=== PATIENT | male | born 1945 | race Hispanic/Latino ===

== ENCOUNTER 2018-01-04 16:33 | Inpatient (IN) | payer MEDICARE, OTHER ==
[2018-01-04 16:35] VITALS: BMI 31.5
[2018-01-04] MEDS ORDERED: Sodium Chloride 0.9% 1,000 ML IV STA ×3 (17:36→19:17)
--- NOTE | 2018-01-04 18:19 | ED PDOC ---
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 Patient denies abdominal pain, back pain, penile pain, penile discharge, testicular pain , and any other symptoms. History is limited due to patient not answering questions. PMD: [facility] Time/Duration: < week (2 days) Symptom Onset: Gradual Symptom Course: Unchanged Context: Home Past Medical History - Provider Review Nursing Documentation Reviewed: Yes - Cardiac Hx Cardiac Disorders: Yes Hx Hypertension: Yes - Pulmonary Hx Respiratory Disorders: No - Neurological Hx Neurological Disorder: Yes HX Cerebrovascular Accident: Yes (left side weakness) - Musculoskeletal/Rheumatological Other/Comment: wheelchair bound - Psychiatric Hx Substance Use: No - Surgical History Hx Coronary Artery Bypass Graft: Yes - Anesthesia Hx Anesthesia: Yes Hx Anesthesia Reactions: No Hx Malignant Hyperthermia: No Family/Social History - Physician Review Nursing Documentation Reviewed: Yes Family/Social History: Unknown Family HX Smoking Status: Former Smoker Hx Alcohol Use: No Hx Substance Use: No Allergies/Home Meds Allergies/Adverse Reactions: Allergies Penicillins Allergy (Verified 01/04/18 16:35) ANAPHYLAXIS Home Medications: Home Meds Medication Instructions Recorded Confirmed Chlorthalidone [Hygroton] 25 mg PO DAILY 01/04/18 01/04/18 Losartan [Cozaar] 25 mg PO DAILY 01/04/18 01/04/18 Propranolol [Inderal] 20 mg PO Q8 01/04/18 01/04/18 Review of Systems - Physician Review All systems were reviewed & negative as marked: Yes - Review of Systems Constitutional: Other (decreased PO intake) Gastrointestinal: absent: Abdominal Pain Genitourinary Male: Urinary Output Changes. absent: Frequency Musculoskeletal: absent: Back Pain Neurological: Dizziness, Focal Weakness Physical Exam Vital Signs Reviewed: Yes Vital Signs Temp Pulse Resp BP Pulse Ox 01/04/18 19:21 89 18 135/70 100 02/07/18 17:41 98.5 F 89 18 138/69 98 Temperature: Afebrile Blood Pressure: Normal Pulse: Regular Respiratory Rate: Normal Appearance: Positive for: Well-Appearing, Non-Toxic, Comfortable Pain Distress: None Mental Status: Positive for: Alert and Oriented X 3 - Systems Exam Head: Present: Atraumatic, Normocephalic Pupils: Present: PERRL Extroacular Muscles: Present: EOMI Conjunctiva: Present: Normal Mouth: Present: Moist Mucous Membranes Neck: Present: Normal Range of Motion Respiratory/Chest: Present: Clear to Auscultation, Good Air Exchange. No: Respiratory Distress, Accessory Muscle Use Cardiovascular: Present: Regular Rate and Rhythm, Normal S1, S2. No: Murmurs Abdomen: Present: Normal Bowel Sounds. No: Tenderness, Distention, Peritoneal Signs Genitourinary Male: Present: Normal External Genitalia. No: Penile Discharge, Testicle Tenderness, Penile Swelling, Erythema, Testicle Swelling Back: Present: Normal Inspection Upper Extremity: Present: Normal Inspection. No: Cyanosis, Edema Lower Extremity: Present: Normal Inspection. No: Edema Neurological: Present: GCS=15, CN II-XII Intact, Speech Normal, Other (left sided weakness). No: Normal Sensory Function (left sided sensation loss) Skin: Present: Warm, Dry, Normal Color. No: Rashes Psychiatric: Present: Alert, Oriented x 3, Normal Insight, Normal Concentration Medical Decision Making ED Course and Treatment: 01/04/18 18:25 Impression: 72 year old male presents to the Emergency department due to decreased PO intake , dizziness, lightheadedness, weakness, and no urine output for 2 days. Differential Diagnosis included but are not limited to: urine retention secondary to BPH vs. renal disease Plan: -- Urinalysis -- Urine culture -- Labs -- Andrade catheter was placed with a small amount of urine output. -- Sodium Chloride IV fluids -- Reassess and disposition Prior Visits: Notes and results from previous visits were reviewed. Patient was last seen in the emergency department on Progress Notes: 01/04/18 19:37 Case was discussed with Dr. Weir who requested Dr. Headley for Renal. He will evaluate patient. Patient will continue to receive IVF. He will be admitted to Medical floor. - Lab Interpretations Lab Results: 01/04/18 18:00 01/04/18 18:00 Lab Results 01/04/18 18:00: Sodium 131 L, Potassium 3.8, Chloride 91 L, Carbon Dioxide 24, Anion Gap 19, BUN 70 H, Creatinine 6.3 H, Est GFR ( Amer) 11, Est GFR ( Non-Af Amer) 9, Random Glucose 470 H*, Calcium 8.8, Total Bilirubin 1.8 H, AST 36, ALT 52, Alkaline Phosphatase 44, Total Protein 7.1, Albumin 4.0, Globulin 3.1, Albumin/Globulin Ratio 1.3, Lipase 75 01/04/18 18:00: WBC 11.5 H, RBC 4.40, Hgb 13.9 L, Hct 37.9 L, MCV 86.1, MCH 31.6 , MCHC 36.7, RDW 13.1, Plt Count 171, MPV 12.1 H, Gran % 78.8 H, Lymph % (Auto) 11.6 L, [place] % (Auto) 9.1 H, Eos % (Auto) 0.2 L, Baso % (Auto) 0.3, Gran # 9.07 H, Lymph # (Auto) 1.3, [place] # (Auto) 1.0 H, Eos # (Auto) 0.0, Baso # (Auto) 0.03 - RAD Interpretation Radiology Orders: 01/04/18 19:34 CXR [CHEST PORTABLE] [RAD] Stat - Medication Orders Current Medication Orders: Sodium Chloride (Sodium Chloride 0.9%) 1,000 mls @ 999 mls/hr IV .Q1H1M STA Stop: 01/04/18 19:59 Last Admin: 01/04/18 19:24 Dose: 999 mls/hr eMAR Start Stop Document 01/04/18 19:24 SF (Rec: 01/04/18 19:24 SF [facility] [id number]) Intravenous Solution Start Date 01/04/18 Start Time 19:24 End Date 01/04/18 End time 20:25 Total Infusion Time 61 Sodium Chloride (Sodium Chloride 0.9%) 1,000 mls @ 999 mls/hr IV .Q1H1M STA Stop: 01/04/18 20:17 Last Admin: 01/04/18 19:24 Dose: 999 mls/hr eMAR Start Stop Document 01/04/18 19:24 SF (Rec: 01/04/18 19:24 SF [facility] [id number]) Intravenous Solution Start Date 01/04/18 Start Time 19:24 End Date 01/04/18 End time 20:25 Total Infusion Time 61 Discontinued Medications Sodium Chloride (Sodium Chloride 0.9%) 1,000 mls @ 1,000 mls/hr IV .Q1H STA Stop: 01/04/18 18:35 Last Admin: 01/04/18 17:45 Dose: 1,000 mls/hr eMAR Start Stop Document 01/04/18 17:45 SF (Rec: 01/04/18 17:46 SF [facility] [id number]) Intravenous Solution Start Date 01/04/18 Start Time 17:46 End Date 01/04/18 End time 18:46 Total Infusion Time 60 - Scribe Statement The provider has reviewed the documentation as recorded by the Scribe Aroldo Echavarria Provider Scribe Attestation: All medical record entries made by the Scribe were at my direction and personally dictated by me. I have reviewed the chart and agree that the record accurately reflects my personal performance of the history, physical exam, medical decision making, and the department course for this patient. I have also personally directed, reviewed, and agree with the discharge instructions and disposition. Disposition/Present on Arrival - Present on Arrival Any Indicators Present on Arrival: No History of DVT/PE: No History of Uncontrolled Diabetes: No Urinary Catheter: No History of Decub. Ulcer: No History Surgical Site Infection Following: None - Disposition Have Diagnosis and Disposition been Completed?: Yes Diagnosis: Acute renal failure, Dehydration, Hyperglycemia Disposition Time: 19:39 Patient Plan: Admission Condition: FAIR Referrals: Porter Funes, [Primary Care Provider] - Follow up with primary Forms: [employer] (Wallisian)
[2018-01-04 18:33] LABS: BASO # 0.03 K/mm3 (0.0-2.0); BASO % 0.3 % (0.0-3.0); EOS % 0.2 % (1.5-5.0); GRAN # 9.07 (1.4-6.5); GRAN % 78.8 % (50.0-68.0); HEMOGLOBIN 13.9 g/dL (14.0-18.0); LYMPH # 1.3 (1.2-3.4); LYMPH % 11.6 % (22.0-35.0); MEAN CELL VOLUME 86.1 fl (80.0-105.0); MEAN CORPUSCULAR HEMOGLOBIN 31.6 pg (25.0-35.0); MEAN CORPUSCULAR HGB CONC 36.7 g/dl (31.0-37.0); MEAN PLATELET VOLUME 12.1 fl (7.0-11.0); MONO % 9.1 % (1.0-6.0); RBC 4.4 10^6/uL (3.5-6.1); RED CELL DISTRIBUTION WIDTH 13.1 % (11.5-14.5); WHITE BLOOD COUNT 11.5 10^3/ul (4.5-11.0)
[2018-01-04 18:52] LABS: ALB/GLOB RATIO 1.3 (1.1-1.8); CALCIUM 8.8 mg/dL (8.4-10.5)
[2018-01-04] MEDS ORDERED: Insulin Regular 1 UNITS/0.01 ML ML SC STA (19:39)
--- NOTE | 2018-01-04 21:09 | ED PDOC ---
Physical Exam Vital Signs Reviewed: Yes Vital Signs Temp Pulse Resp BP Pulse Ox 01/04/18 19:21 89 18 135/70 100 01/04/18 17:41 98.5 F 89 18 138/69 98 Temperature: Afebrile Blood Pressure: Normal Pulse: Regular Respiratory Rate: Normal Appearance: Positive for: Well-Appearing, Non-Toxic, Comfortable Pain Distress: None Mental Status: Positive for: Alert and Oriented X 3 Medical Decision Making ED Course and Treatment: 01/04/18 21:07 Patient was seen by Dr. Khan, and admitted to the hospital. Patient is a 72 year old male with acute kidney injury, dehydration and diarrhea. Patient was not urinating. Initially had few hundred cc first julio, second julio had nothing. Ordered US abdomen, pending US results. - Lab Interpretations Lab Results: 01/04/18 18:00 01/04/18 18:00 Lab Results 01/04/18 18:00: Sodium 131 L, Potassium 3.8, Chloride 91 L, Carbon Dioxide 24, Anion Gap 19, BUN 70 H, Creatinine 6.3 H, Est GFR ( Amer) 11, Est GFR ( Non-Af Amer) 9, Random Glucose 470 H*, Calcium 8.8, Total Bilirubin 1.8 H, AST 36, ALT 52, Alkaline Phosphatase 44, Total Protein 7.1, Albumin 4.0, Globulin 3.1, Albumin/Globulin Ratio 1.3, Lipase 75 01/04/18 18:00: WBC 11.5 H, RBC 4.40, Hgb 13.9 L, Hct 37.9 L, MCV 86.1, MCH 31.6 , MCHC 36.7, RDW 13.1, Plt Count 171, MPV 12.1 H, Gran % 78.8 H, Lymph % (Auto) 11.6 L, [place] % (Auto) 9.1 H, Eos % (Auto) 0.2 L, Baso % (Auto) 0.3, Gran # 9.07 H, Lymph # (Auto) 1.3, [place] # (Auto) 1.0 H, Eos # (Auto) 0.0, Baso # (Auto) 0.03 I have reviewed the lab results: Yes - RAD Interpretation Radiology Orders: 01/04/18 20:20 CXR [CHEST PORTABLE] [RAD] Stat - Medication Orders Current Medication Orders: Discontinued Medications Sodium Chloride (Sodium Chloride 0.9%) 1,000 mls @ 1,000 mls/hr IV .Q1H STA Stop: 01/04/18 18:35 Last Admin: 01/04/18 17:45 Dose: 1,000 mls/hr eMAR Start Stop Document 01/04/18 17:45 SF (Rec: 01/04/18 17:[address] [facility] [id number] Intravenous Solution Start Date 01/04/18 Start Time 17:46 End Date 01/04/18 End time 18:46 Total Infusion Time 60 Sodium Chloride (Sodium Chloride 0.9%) 1,000 mls @ 999 mls/hr IV .Q1H1M STA Stop: 01/04/18 19:59 Last Admin: 01/04/18 19:24 Dose: 999 mls/hr eMAR Start Stop Document 01/04/18 19:24 SF (Rec: 01/04/18 19:[address] [id number] Intravenous Solution Start Date 01/04/18 Start Time 19:24 End Date 01/04/18 End time 20:25 Total Infusion Time 61 Sodium Chloride (Sodium Chloride 0.9%) 1,000 mls @ 999 mls/hr IV .Q1H1M STA Stop: 01/04/18 20:17 Last Admin: 01/04/18 19:24 Dose: 999 mls/hr eMAR Start Stop Document 01/04/18 19:24 SF (Rec: 01/04/18 19:[address] [facility] [id number]) Intravenous Solution Start Date 01/04/18 Start Time 19:24 End Date 01/04/18 End time 20:25 Total Infusion Time 61 Insulin Human Regular (Humulin R) 5 units SC STAT STA Stop: 01/04/18 19:40 - PA / REPAIR OPERATOR / Resident Statement MD/DO has reviewed & agrees with the documentation as recorded. - Scribe Statement The provider has reviewed the documentation as recorded by the Dian Connolly Provider Scribe Attestation: All medical record entries made by the Scribe were at my direction and personally dictated by me. I have reviewed the chart and agree that the record accurately reflects my personal performance of the history, physical exam, medical decision making, and the department course for this patient. I have also personally directed, reviewed, and agree with the discharge instructions and disposition. Disposition/Present on Arrival - Present on Arrival Any Indicators Present on Arrival: No History of DVT/PE: No History of Uncontrolled Diabetes: No Urinary Catheter: No History of Decub. Ulcer: No History Surgical Site Infection Following: None - Disposition Have Diagnosis and Disposition been Completed?: Yes Diagnosis: Acute renal failure, Dehydration, Hyperglycemia Disposition: HOSPITALIZED Disposition Time: 21:00 Patient Plan: Admission Patient Problems: Current Active Problems Problem Status Onset Acute renal failure Acute Dehydration Acute Hyperglycemia Acute Condition: FAIR
--- NOTE | 2018-01-04 22:26 | US ---
EXAM: US Abdomen Complete EXAM DATE/TIME: 01/04/2018 8:55 PM CLINICAL HISTORY: The patient age is 72 years old and is male; Abnormal findings; Abnormal lab test; Elevated amylase; Additional info: Attn: Kidneys, ureters and bladder Facility exam id and description: Us abd abdomen complete TECHNIQUE: Real-time ultrasound of the abdomen (complete) with image documentation. COMPARISON: No relevant prior studies available. FINDINGS: Liver: The liver is increased in echogenicity, most commonly due to fatty infiltration, but other chronic liver diseases may have a similar appearance. The liver measures 15.0 x 4.9 cm. Gallbladder: A shadowing gallstone is visualized. Iso- to hypoechoic sludge is also visualized within the gallbladder. There is borderline gallbladder wall thickening. Common bile duct: The common bile duct measures 2-3 mm in diameter, which is within normal limits. Pancreas: The pancreas is not visualized. Kidneys: The right kidney measures 11.8 x 5.5 x 6.5 cm. There is no hydronephrosis of the right kidney. There is a focus of hyper echogenicity of the lower pole of the left kidney measuring 0.9 x 0.3 x 1.1 cm, suggestive of a nonobstructing calculus. A few additional hyperechoic foci are visualized within the right kidney. The left kidney measures 9.4 x 4.4 x 4.8 cm. There is a hyperechoic focus of the lower pole measuring 0.7 x 0.4 x 0.6 cm, consistent with a nonobstructing calculus. There is no hydronephrosis of the left kidney. Spleen: The spleen measures 10.1 x 6.6 cm and is normal in echotexture. Aorta: Not imaged. Inferior vena cava: Not imaged. IMPRESSION: 1. There is bilateral nephrolithiasis, without hydronephrosis. 2. The liver is increased in echogenicity, most commonly due to fatty infiltration, but other chronic liver diseases may have a similar appearance. 3. A gallstone is visualized. Sludge is also visualized within the gallbladder. There is borderline gallbladder wall thickening. Clinical correlation is recommended. 4. Additional findings described above.
--- NOTE | 2018-01-04 22:29 | US ---
EXAM: US Pelvis Complete EXAM DATE/TIME: 01/04/2018 8:59 PM CLINICAL HISTORY: The patient age is 72 years old and is male; Abnormal findings; Abnormal lab test; Abnormal kidney function test; Additional info: No urine output Facility exam id and description: Us bladder bladder only/residual urine TECHNIQUE: Real-time pelvic ultrasound (complete) with image documentation. COMPARISON: No relevant prior studies available. FINDINGS: Limitations: This is a limited study. Prostate: Not imaged. Seminal vessicles: Not identified due to lack of a sufficient acoustic window. Bladder: A Andrade catheter is visualized within the bladder. Evaluation of the bladder is significantly limited due to a decompressed bladder. IMPRESSION: 1. A Andrade catheter is visualized within the bladder. Evaluation of the bladder is significantly limited. 2. If further evaluation is clinically indicated, a CT urogram is recommended.
[2018-01-05] MEDS: Albuterol-Ipratrop 3 mg / 0.5 (3 ml) UD IH SCH ×4 (01:21→20:02)
[2018-01-05 08:05] LABS: HEMOGLOBIN 12.4 g/dL (14.0-18.0); MEAN CELL VOLUME 85.5 fl (80.0-105.0); MEAN CORPUSCULAR HEMOGLOBIN 30.4 pg (25.0-35.0); MEAN CORPUSCULAR HGB CONC 35.5 g/dl (31.0-37.0); MEAN PLATELET VOLUME 11.9 fl (7.0-11.0); RBC 4.08 10^6/uL (3.5-6.1); RED CELL DISTRIBUTION WIDTH 13.1 % (11.5-14.5); WHITE BLOOD COUNT 11.9 10^3/ul (4.5-11.0)
[2018-01-05 08:13] LABS: IRON 22 ug/dL (45-180)
[2018-01-05 08:15] LABS: CALCIUM 7.7 mg/dL (8.4-10.5)
[2018-01-05 08:23] LABS: % IRON SATURATION 18 % (20-55); TOTAL IRON BINDING CAPACITY 127 ug/dL (261-462)
[2018-01-05] MEDS ORDERED: Sodium Chloride 0.9% 1,000 ML IV SCH ×2 (08:30→22:30)
[2018-01-05] MEDS: Insulin Reg-LOW-Coverage SC SCH ×4 (09:05→22:07)
--- NOTE | 2018-01-05 09:45 | HP ---
CHIEF COMPLAINT: Cannot urinate, no appetite. HISTORY OF PRESENT ILLNESS: Mr. Humberto London is a 72-year-old male with a history of CVA, residual amnesia and left-sided weakness, hypertension, short-term memory loss, came to the Emergency Department due to decreased p.o. intake, dizziness, lightheadedness, and weakness. Actually, patient had diarrhea; with that, he got dehydrated, and was not able to pee. No urinary outcome for 2 days as per patient's brother, Rashard, who was standing on the bedside. Patient denies abdominal pain, back pain. No discharge. No testicular pain. No fever. No chills. I saw the patient in the emergency room. We did bladder ultrasound and abdominal ultrasound. Admitted the patient. PAST MEDICAL HISTORY: Hypertension, left-sided weakness, cerebrovascular accident, wheelchair bound, coronary artery bypass graft. FAMILY HISTORY: Father and mother, noncontributory. HABITS: Former smoker. No ethanol. No substance abuse. ALLERGIES: PATIENT IS ALLERGIC TO PANTENE . HOME MEDICATIONS: Chlorthalidone, Cozaar, propranolol. REVIEW OF SYSTEMS: Patient was seen and examined on the bedside. Brother, Rashard is on the bedside. He gave me patient's signs and symptoms of review of systems, had decreased appetite, diarrhea, dehydrated, change of urinary output. No back pain. Feeling dizziness and weak. PHYSICAL EXAMINATION: VITAL SIGNS: Temperature 98.5, pulse 89, respiratory rate 18, blood pressure 130/69, pulse oximetry 98. HEENT: Head normocephalic, atraumatic. Eyes PERRLA. Extraocular muscles are intact. Conjunctivae are clear. Nose is patent. NECK: Supple. No carotid bruit, JVD, or thyromegaly. CHEST: Bilaterally symmetrical. HEART: S1 and S2 positive. LUNGS: Clear to auscultation. ABDOMEN: Soft. Bowel sounds present. No organomegaly. EXTREMITIES: No edema. No cyanosis. NEUROLOGIC: Patient is awake and alert but is confused, oriented x3. LABORATORY DATA: White blood cell is 11.5, hemoglobin 13.9, hematocrit 37.9, platelet 171. Sodium 131, potassium 3.8, BUN 70, creatinine 6.3, glucose 470. ASSESSMENT AND PLAN: Mr. Humberto London is a 72-year-old male with leukocytosis, anemia, hyponatremia, renal insufficiency, hyperglycemia, acute renal failure, dehydration, went for bladder and abdominal ultrasound. According to bladder ultrasound, patient's Andrade catheter is visible within the bladder, evaluation of the bladder is significantly limited. , CT urogram with bilateral nephrolithiasis without hydronephrosis, there is increase in echogenicity, most commonly due to fatty infiltration, but other chronic liver disease may have a similar appearance, a gallstone is visualized, sludge is also visualized within the bladder. There is borderline gallbladder wall thickening. Clinically correlation recommended. Patient was seen in the emergency room by also, sujatha, started on intravenous fluid. Patient has a history of stroke, residual amnesia and left-sided weakness, hypertension, short-term memory problem. Lots of time discussion done with the patient's brother, Rashard. All questions answered. Gastrointestinal and deep venous thrombosis prophylaxis. Repeat labs. We will follow. Marina Weir MD MTDD
[2018-01-05 12:51] LABS: URINE BILIRUBIN NEGATIVE (NEGATIVE); URINE BLOOD LARGE (NEGATIVE); URINE GLUCOSE (UA) 250 mg/dL (NEGATIVE); URINE LEUKOCYTE ESTERASE MODERATE Leu/uL (NEGATIVE); URINE NITRATE NEGATIVE (NEGATIVE); URINE PROTEIN >=300 mg/dL (<30 mg/dL); URINE UROBILINOGEN 0.2 E.U./dL (<1 E.U./dL)
[2018-01-05 12:52] LABS: URINE APPEARANCE CLOUDY (CLEAR); URINE COLOR LIGHT BROWN (YELLOW)
[2018-01-05 13:23] LABS: FOLATE 11.2 ng/mL
[2018-01-05 13:27] LABS: URINE BACTERIA MANY (NEG); URINE RBC TNTC /hpf (0-2); URINE WBC TNTC /hpf (0-6)
--- NOTE | 2018-01-05 14:16 | RAD ---
HISTORY: renal failure COMPARISON: No prior. FINDINGS: LUNGS: No active pulmonary disease. PLEURA: No significant pleural effusion identified, no pneumothorax apparent. CARDIOVASCULAR: Normal. OSSEOUS STRUCTURES: No significant abnormalities. VISUALIZED UPPER ABDOMEN: Normal. OTHER FINDINGS: None. IMPRESSION: No active disease.
[2018-01-05 19:12] LABS: CREATININE,RANDOM URINE 73 mg/dL
--- NOTE | 2018-01-05 23:00 | CP.PCM.CON ---
History of Present Illness - History of Present Illness History of Present Illness: Infectious Disease Consultation: January 05, 2018 72 yo male found be family to be confused with poor oral intake, dizziness, weakness, lightheadedness, and decreased urination. Found to have acute renal failure in ER. The patient is a extremely poor historian. The patient is also wheelchair bound. Changes started one week ago. Medical history includes HTN, CVA with residual left sided weakness, Hepatitis C, and wheelchair bound. PMHx: HTN, CVA with residual left sided weakness, Hepatitis C, and wheelchair bound PSHx: Polyp removal Allergies: PCN Social Hx: Previous IVDA Ex-smoker Unclear EtOH history Active Medications Acetaminophen (Tylenol 325mg Tab) 650 mg PO Q4H PRN PRN Reason: pain fever Albuterol/Ipratropium (Duoneb 3 Mg/0.5 Mg (3 Ml) Ud) 3 ml [id number] Last Admin: 01/05/18 20:02 Dose: Not Given Aspirin (Ecotrin) 81 mg PO DAILY TERRY Last Admin: 01/05/18 09:05 Dose: 81 mg Famotidine (Pepcid) 40 mg PO HS TERRY Last Admin: 01/05/18 22:09 Dose: 40 mg Aztreonam 500 mg/ Sodium (Chloride) 100 mls @ 100 mls/hr IVPB Q8 TERRY PRN Reason: Protocol Stop: 01/06/18 06:59 Sodium Chloride (Sodium Chloride 0.9%) 1,000 mls @ 100 mls/hr IV .Q10H TERRY Insulin Human Regular (Humulin R Low) 0 units SC ACHS TERRY PRN Reason: Protocol Last Admin: 01/05/18 22:07 Dose: Not Given Ondansetron HCl (Zofran Inj) 4 mg IVP Q6 PRN PRN Reason: Nausea/Vomiting Family Hx: None given ROS: Unable to Obtain from the patient Past Patient History - Past Social History Smoking Status: Never Smoked - CARDIAC Hx Cardiac Disorders: Yes Hx Hypertension: Yes - PULMONARY Hx Respiratory Disorders: No - NEUROLOGICAL Hx Neurological Disorder: Yes HX Cerebrovascular Accident: Yes (left side weakness) - MUSCULOSKELETAL/RHEUMATOLOGICAL Hx Falls: No Other/Comment: wheelchair bound - PSYCHIATRIC Hx Substance Use: No - SURGICAL HISTORY Hx Surgeries: Yes - ANESTHESIA Hx Anesthesia: Yes Hx Anesthesia Reactions: No Hx Malignant Hyperthermia: No Meds Allergies/Adverse Reactions: Allergies Allergy/AdvReac Type Severity Reaction Status Date / Time Penicillins Allergy ANAPHYLAXIS Verified 01/04/18 16:35 - Medications Medications: Current Medications Acetaminophen (Tylenol 325mg Tab) 650 mg PO Q4H PRN PRN Reason: pain fever Albuterol/Ipratropium (Duoneb 3 Mg/0.5 Mg (3 Ml) Ud) 3 ml [id number] Last Admin: 01/05/18 20:02 Dose: Not Given Aspirin (Ecotrin) 81 mg PO DAILY [facility] Last Admin: 01/05/18 09:05 Dose: 81 mg Famotidine (Pepcid) 40 mg PO HS [facility] Last Admin: 01/05/18 22:09 Dose: 40 mg Aztreonam 500 mg/ Sodium (Chloride) 100 mls @ 100 mls/hr IVPB Q8 TERRY PRN Reason: Protocol Stop: 01/06/18 06:59 Sodium Chloride (Sodium Chloride 0.9%) 1,000 mls @ 100 mls/hr IV .Q10H [facility] Insulin Human Regular (Humulin R Low) 0 units SC ACHS TERRY PRN Reason: Protocol Last Admin: 01/05/18 22:07 Dose: Not Given Ondansetron HCl (Zofran Inj) 4 mg IVP Q6 PRN PRN Reason: Nausea/Vomiting Physical Exam - Constitutional Appears: Non-toxic, No Acute Distress, Chronically Ill - Head Exam Head Exam: ATRAUMATIC, NORMOCEPHALIC - Eye Exam Eye Exam: EOMI, PERRL Pupil Exam: NORMAL ACCOMODATION, PERRL - ENT Exam ENT Exam: Mucous Membranes Moist, Normal External Ear Exam, TM's Normal Bilaterally - Neck Exam Neck exam: Positive for: Full Rom, Normal Inspection - Respiratory Exam Respiratory Exam: Clear to Auscultation Bilateral, NORMAL BREATHING PATTERN. absent: Rales, Rhonchi, Wheezes - Cardiovascular Exam Cardiovascular Exam: REGULAR RHYTHM, RRR, +S1, +S2 - GI/Abdominal Exam GI & Abdominal Exam: Normal Bowel Sounds, Soft. absent: Distended, Tenderness - Extremities Exam Extremities exam: Negative for: joint swelling, pedal edema - Neurological Exam Neurological exam: Alert, CN II-XII Intact, Oriented x3 - Expanded Neurological Exam Expanded Neuro motor strength exam: Left Upper Extremity: 2/1, Right Upper Extremity: 5, Left Lower Extremity: 2/1, Right Lower Extremity: 5 - Psychiatric Exam Psychiatric exam: Normal Affect, Normal Mood - Skin Skin Exam: Intact, Normal Color Results - Vital Signs Recent Vital Signs: Last Vital Signs Temp 99.2 F 01/05/18 16:03 Pulse 85 01/05/18 16:03 Resp 20 01/05/18 16:03 BP 131/75 01/05/18 16:03 Pulse Ox 98 01/05/18 16:03 - Labs Result Diagrams: 01/05/18 07:30 01/05/18 07:30 Labs: Laboratory Results - last 24 hr 01/05/18 01/05/18 01/05/18 16:27 18:57 20:56 POC Glucose (mg/dL) 294 H 249 H Ur Random Creatinine 73 Ur Random Sodium 60 Assessment & Plan - Assessment and Plan (Free Text) Assessment: 72 yo male who appears calm at this time with lethargy, decreased urinary output, and findings of acute renal failure on hospitalization. The patient with mild leukocytosis. Afebrile at this time. Chest X-ray with no active disease. Cannot rule out UTI as of yet. On Aztreonam due to PCN Allergies. Supportive care. Pimentel cultures. Monitor fever trend and WBC trend. Thank you for allowing me to participate in the care of the patient, we will follow with you.
--- NOTE | 2018-01-05 23:32 | CON ---
DATE: LOCATION: [facility]. NEPHROLOGY CONSULTATION HISTORY OF PRESENT ILLNESS: The patient is a 72-year-old male with past medical history of hypertension, status post CVA with left-sided residual weakness, hepatitis C, wheelchair bound, presented to ED due to being found by family to have decreased p.o. intake and decreased urination along with complaints of dizziness, lightheadedness and weakness. The patient found to have acute renal failure. Nephrology being consulted for this reason. History taken mainly from the patient's brother as the patient has poor memory. Per brother, the patient had been urinating well up until about 1 week ago. At that point, family noticed that he had been urinating very little (as the patient is mostly wheelchair-bound, family is the one that empties out his urinal and commode). The patient also with decreased p.o. intake over this period of time. No report of any vomiting or diarrhea; however, per ED nurse, the patient did have some scant loose watery bowel movement. The patient had been on a stable medication regimen as per the patient's brother. He has not seen his PMD in over a year (at [facility]). Denies any history of diabetes. The patient otherwise was taking his medications regularly, which includes propranolol, chlorthalidone and Cozaar. PAST MEDICAL HISTORY: As above. PAST SURGICAL HISTORY: Status post polyp removal many years ago; hepatitis C, unknown if treated. SOCIAL HISTORY: Previous IVDA, previous smoke, not known to ever have been a heavy drinker. REVIEW OF SYSTEMS: CONSTITUTIONAL: Weakness, decreased p.o. intake. HEENT: No visual deficits reported. No flu-like symptoms recently. RESPIRATORY: No shortness of breath reported. CARDIOVASCULAR: No chest pain or palpitations reported. GI: The patient is reporting abdominal pain, but no vomiting or diarrhea. : As per HPI. MUSCULOSKELETAL: Denies any arthralgias or back pain. PSYCHIATRIC: History of short-term memory loss. NEURO: Reporting dizziness. PHYSICAL EXAMINATION: VITAL SIGNS: Vitals this morning, blood pressure 162/74, heart rate 88, respirations 20, temperature 98.9, O2 sat 97% on room air. GENERAL: No distress, lying comfortably in bed. HEENT: Moist mucous membranes. Nonicteric. No cervical lymphadenopathy. RESPIRATORY: Lungs clear to auscultation bilaterally. No rales. No rhonchi. No wheezes. CARDIOVASCULAR: Heart sounds S1 and S2 normal. No murmurs. No gallops. No rubs. No carotid bruit, but unable to auscultate carotid pulsation on left. GI: Abdomen soft, bilateral lower quadrant tenderness, nondistended. : Andrade in place. No bladder distention. EXTREMITIES: No lower leg edema. SKIN: Warm. No cyanosis. NEURO: No asterixis. Good strength on right side. PSYCHIATRIC: Poor memory recall. LABORATORY DATA: Labs this morning, CBC: WBC 11.9, hemoglobin 12.4, hematocrit 34.9, platelets 136. Chemistry panel: Sodium 133; potassium 3.6; chloride 102; bicarb 17; BUN 74; creatinine 7.2, increased from 6.3 yesterday evening. Glucose 351, calcium 7.7, albumin from yesterday 4.0. Iron studies: Iron 22, TIBC 127, iron saturation 18%. Hemoglobin A1c 8.4%. TSH 0.19. Abdominal ultrasound directly visualized somewhat echogenic kidneys bilaterally. Chest x-ray directly visualized no pulmonary vascular congestion. Urine studies not yet available. ASSESSMENT AND PLAN: 1. Acute renal failure, oligoanuric renal failure of unclear etiology. Likely prerenal etiology extending to severe acute tubular necrosis in the setting of decreased p.o. intake, possibly increased gastrointestinal losses with possible increased urination from hyperglycemia and being on diuretic coupled with loss of renal autoregulation due to being on angiotensin receptor milad. A. The patient having modest increased anion gap metabolic acidosis due to renal failure. Potassium within normal limits. Volume status currently stable. B. Case discussed with the patient's brother, who is power of patent prosecution attorney. As the patient has very little urine output despite having received adequate volume replenishment (3 L normal saline in emergency room), at this point the patient will likely need hemodialysis within the next 24-48 hours. We will recommend to have hemodialysis catheter placed today so that we may initiate dialysis by tomorrow. Brother is agreeable, so we will carry this out. C. Avoid giving more intravenous fluids for now as this will cause volume overload. D. Awaiting urine studies including urine electrolytes, urine protein, microalbumin and creatinine. E. Awaiting serum complements. F. The patient also has history of hepatitis C and we cannot rule out an underlying hepatitis C related glomerulonephritis with baseline chronic kidney disease (no recent serum creatinine available). 2. Diabetes. Family is unaware of this diagnosis; however, the patient has hemoglobin A1c of 8.4% and is hyperglycemic currently, may have exacerbated volume depletion. A. Checking urine for proteinuria. B. Need to establish adequate glycemic control with target sugars in 140-180 range. 3. Hepatitis C as mentioned above. Cannot rule out an underlying hepatitis C related glomerulonephritis. Complements will be helpful in this regard. Further workup pending those results. 4. Metabolic acidosis. For now, does not need to be treated. We will correct with hemodialysis. 5. Hypocalcemia. May be indicative of underlying advanced chronic kidney disease. We will check PTH and vitamin D 25-hydroxy levels. Thank you for this referral. We will be following up closely. Daniel Headley MD
[2018-01-05 23:55] LABS: TOTAL PROTEIN,RANDOM URINE 39 mg/L
[2018-01-06] MEDS: Albuterol-Ipratrop 3 mg / 0.5 (3 ml) UD IH SCH ×4 (01:53→21:12)
--- NOTE | 2018-01-06 02:35 | PN ---
DATE: SUBJECTIVE: The patient is a 72-year-old male. The patient was seen and examined on the bedside, looking comfortable. No nausea, vomiting, or diarrhea. No hematuria or hematochezia. No swelling of the legs. No chest pain, no palpitation. No headache, no dizziness. PHYSICAL EXAMINATION: VITAL SIGNS: Temperature 99.2, pulse 85, blood pressure 130/75, respiratory rate 20. HEENT: Head: Normocephalic, atraumatic. Eyes: PERRLA. Extraocular muscles intact. Conjunctivae clear. Nose patent. Mucous membranes moist. NECK: Supple. No carotid bruit. No JVD or thyromegaly. CHEST: Bilaterally symmetrical. HEART: S1 and S2 positive. LUNGS: Clear to auscultation. ABDOMEN: Soft. Bowel sounds are positive. No organomegaly. EXTREMITIES: No edema. No cyanosis. NEUROLOGIC: The patient is awake and alert. Moving all four extremities. No focal deficits. The patient is a very poor historian. MEDICATIONS: Doxycycline, DuoNeb, Ecotrin, insulin, Pepcid, Tylenol, Zofran. LABORATORY DATA: White blood cells 11.5, hemoglobin 12.4, hematocrit 34.9, and platelets 136. Glucose 249, iron 22, saturation 18%. ASSESSMENT AND PLAN: Mr. Humberto London is a 72-year-old male with leukocytosis, anemia, uncontrolled diabetes mellitus, hemoglobin A1c 6.4, iron deficiency, proteinuria, glucosuria, hematuria, urinary tract infection, getting antibiotics, bladder ultrasound, abdominal ultrasound appreciated, patient has renal insufficiency. Nephrology consult called. According to Dr. Headley, the patient needs dialysis, working on that. The patient has history of hypertension, left-sided weakness, cerebrovascular accident, wheelchair bound, coronary artery disease, bypass graft. Brother was sitting on the bedside. Discussion done with Dr. Daniel Headley also. Plan is to continue present treatment, out of bed, physical therapy, antibiotics. We will follow up. Marina Weir MD
[2018-01-06 07:41] LABS: BASO # 0.01 K/mm3 (0.0-2.0); BASO % 0.1 % (0.0-3.0); EOS % 0.3 % (1.5-5.0); GRAN # 7.77 (1.4-6.5); GRAN % 78.8 % (50.0-68.0); HEMOGLOBIN 12.4 g/dL (14.0-18.0); LYMPH # 1.3 (1.2-3.4); LYMPH % 12.9 % (22.0-35.0); MEAN CELL VOLUME 85.8 fl (80.0-105.0); MEAN CORPUSCULAR HEMOGLOBIN 30.9 pg (25.0-35.0); MEAN PLATELET VOLUME 12.1 fl (7.0-11.0); MONO # 0.8 (0.1-0.6); MONO % 7.9 % (1.0-6.0); RBC 4.01 10^6/uL (3.5-6.1); WHITE BLOOD COUNT 9.9 10^3/ul (4.5-11.0)
[2018-01-06 07:56] LABS: ALB/GLOB RATIO 1.1 (1.1-1.8); ALBUMIN 3.3 g/dL (3.0-4.8); CALCIUM 8.1 mg/dL (8.4-10.5); MAGNESIUM 1.4 mg/dL (1.7-2.2)
[2018-01-06] MEDS ORDERED: Potassium Chloride 20 mEq ER Tab PO ONE (08:27)
[2018-01-06] MEDS: Insulin Reg-LOW-Coverage SC SCH ×3 (08:27→16:23)
--- NOTE | 2018-01-06 09:58 | CON ---
DATE: 01/05/2018 PULMONARY CONSULTATION REFERRING PHYSICIAN: Dr. Weir. REASON FOR CONSULTATION: History of stroke, short of breath, acute renal failure. HISTORY OF PRESENT ILLNESS: This is a 72-year-old gentleman with known history of CVA, cognitive deficits, hypertension, been having diarrhea at home; according to family, has no urine output, brought into ER, found to have acute renal failure. He is lying in the bed, confused. No hemoptysis, no hematemesis . No leg pain or leg swelling reported. PAST MEDICAL HISTORY: As per history of present illness. Also has a history of coronary artery disease and coronary artery bypass surgery. SOCIAL HISTORY: Former smoker. Denies any alcohol use. FAMILY HISTORY: No significant cardiopulmonary disease reported. ALLERGIES: NONE KNOWN. MEDICATIONS: He is on doxycycline 100 mg twice a day, DuoNeb q. 6 hours, Ecotrin 81 mg daily, insulin coverage, Pepcid 40 mg daily, Tylenol p.r.n., Zofran p.r.n. REVIEW OF SYSTEMS: Has a dry mouth, has some cough and shortness of breath. No chest pain. No nausea, no vomiting. Has a Andrade catheter. No leg pain or leg swelling. PHYSICAL EXAMINATION: GENERAL: Sleepy, arousable. VITAL SIGNS: Temperature is 99, heart rate 82, respiratory rate is 20, blood pressure 131/75, pulse ox 98% room air. HEENT: Moist mucous membrane. Crowded airway. Mallampati score is IV. NECK: Supple. No JVD. LUNGS: Has scattered rhonchi. HEART: S1 and S2. ABDOMEN: Soft, nontender. Nondistended. EXTREMITIES: There is no edema. NEUROLOGIC: Sleepy, arousable. Does follow simple commands, but confused. LABORATORY DATA: Shows hemoglobin 12.4, hematocrit 34.9, WBC 11.9, platelet is 136. Sodium 133, potassium 3.6, chloride 102, bicarbonate 17, BUN 74, creatinine , hemoglobin A1c 8.4, calcium is 7.7. Iron is 22, AST 36, ALT 52, albumin 4.0, cholesterol 121, TSH 0.19. Vitamin B12 382. Folate 11.2. Lipase 75. Chest x-ray done in ER shows no infiltrate or effusion. Has a bladder ultrasound done, which shows Andrade catheter visualized within the bladder Also abdominal ultrasound was done, which shows bilateral nephrolithiasis without any hydronephrosis. There is also gallstone visualized and sludge is visualized within the gallbladder. There is a borderline gallbladder wall thickening. IMPRESSION AND PLAN: Acute renal failure, rule out infectious process, history of cerebrovascular accident, hypertension, coronary artery disease, rule out cholelithiasis. We will start intravenous fluids, intravenous antibiotics, keep head at 45 degrees. There may be component of sleep apnea syndrome. Avoid nocturnal sedation. Gastric and deep venous thrombosis prophylaxis. Follow up labs in the morning. Thank you and we will follow with you. Kevin Riojas MD
[2018-01-06] MEDS ORDERED: Magnesium Sulfate 1 gm in D5W 1 GM/100 ML BAG IVPB ONE (10:54)
--- NOTE | 2018-01-06 14:43 | CP.PCM.PN ---
<Monik Zapata - Last Filed: 01/06/18 14:39> Subjective - Date & Time of Evaluation Date of Evaluation: 01/06/18 Time of Evaluation: 09:40 - Subjective Subjective: Chief Complaint: Abdominal pain 72 yr male w/ hstory of CVA (L weakness), HTN, everyday smoker, nonambulatory, CABG, & DM II. Today, seen at bedside. Pt c/o nonspecific stomach pain & hiccups. Denies any fever, chills, chest pain, shortness of breath, diarrhea, constipation, or urinary problems. Objective - Vital Signs/Intake and Output Vital Signs (last 24 hours): Temp Pulse Resp BP Pulse Ox 99.0 F 83 18 138/78 97 01/06/18 08:00 01/06/18 08:00 01/06/18 08:00 01/06/18 08:00 01/06/18 08:00 Intake and Output: 01/06/18 01/06/18 06:59 18:59 Intake Total 540 Output Total 1000 Balance -460 - Medications Medications: Current Medications Acetaminophen (Tylenol 325mg Tab) 650 mg PO Q4H PRN PRN Reason: pain fever Albuterol/Ipratropium (Duoneb 3 Mg/0.5 Mg (3 Ml) Ud) 3 ml IH [id number] [facility] Last Admin: 01/06/18 13:08 Dose: 3 ml Aspirin (Ecotrin) 81 mg PO DAILY [facility] Last Admin: 01/06/18 09:28 Dose: 81 mg Famotidine (Pepcid) 40 mg PO HS [facility] Last Admin: 01/05/18 22:09 Dose: 40 mg Aztreonam 500 mg/ Sodium (Chloride) 100 mls @ 100 mls/hr IVPB Q8 [facility]Y PRN Reason: Protocol Last Admin: 01/06/18 13:17 Dose: 100 mls/hr Sodium Chloride (Sodium Chloride 0.9%) 1,000 mls @ 80 mls/hr IV .[id number] [facility] Insulin Human Regular (Humulin R Low) 0 units SC ACHS [facility] PRN Reason: Protocol Last Admin: 01/06/18 13:18 Dose: 2 units Ondansetron HCl (Zofran Inj) 4 mg IVP Q6 PRN PRN Reason: Nausea/Vomiting - Labs Labs: 01/06/18 07:34 01/06/18 07:34 - Constitutional Appears: Confused - Head Exam Head Exam: ATRAUMATIC, NORMAL INSPECTION, NORMOCEPHALIC - Eye Exam Eye Exam: EOMI, Normal appearance, PERRL Pupil Exam: NORMAL ACCOMODATION, PERRL - ENT Exam ENT Exam: Mucous Membranes Moist, Normal Exam - Neck Exam Neck Exam: Full ROM, Normal Inspection. absent: Lymphadenopathy - Respiratory Exam Respiratory Exam: Clear to Ausculation Bilateral, NORMAL BREATHING PATTERN - Cardiovascular Exam Cardiovascular Exam: +S1, +S2 - GI/Abdominal Exam GI & Abdominal Exam: Soft, Normal Bowel Sounds - Exam Additional comments: julio catheter draining clear yellow urine - Extremities Exam Additional comments: L ARM contracture - Neurological Exam Neurological Exam: Alert, Awake - Psychiatric Exam Psychiatric exam: Normal Affect, Normal Mood - Skin Skin Exam: Dry, Intact, Normal Color, Warm Assessment and Plan (1) Anemia Status: Acute (2) Hypokalemia Status: Acute (3) CKD (chronic kidney disease) Status: Acute (4) Hypocalcemia Status: Acute (5) Hypomagnesemia Status: Acute (6) Proteinuria Status: Acute (7) Acute renal failure Status: Acute (8) Dehydration Status: Acute (9) Hyperglycemia Status: Acute - Assessment and Plan (Free Text) Plan: Monitor abdominal pain. Dialysis catheter insertion ordered. Urine culture: Gram negative rods, preliminary. IV azactam. Electrolytes corrected. Labs ordered. VTE/GI prophlyaxis. PT/OT on board. Consults: Nephro - Dr. Headley ID - Dr. Scott Urology - Dr. Saldivar Pulye - Dr. AmadoBeulah Surgery - Dr. Reynolds Reviewed: CXR = WNL US abd = L kidney nonobstructing calculus, b/l nephrolithiasis. fatty infiltration, chronic, sludge within gallbadder, borderline gallbladder thickening US Bladder = julio catheter in place, limited study <Marina Weir - Last Filed: 01/09/18 10:18> Objective - Vital Signs/Intake and Output Vital Signs (last 24 hours): Temp Pulse Resp BP Pulse Ox 100 F H 106 H 20 133/70 97 01/09/18 07:30 01/09/18 09:04 01/09/18 08:04 01/09/18 09:06 01/09/18 08:04 Intake and Output: 01/09/18 01/09/18 06:59 18:59 Intake Total 660 Output Total 1300 Balance -640 - Medications Medications: Current Medications Acetaminophen (Tylenol 325mg Tab) 650 mg PO Q4H PRN PRN Reason: pain fever Albuterol/Ipratropium (Duoneb 3 Mg/0.5 Mg (3 Ml) Ud) 3 ml IH [id number] [facility] Last Admin: 01/09/18 07:20 Dose: 3 ml Amlodipine Besylate (Norvasc) 10 mg PO DAILY [facility] Last Admin: 01/09/18 09:06 Dose: 10 mg Aspirin (Ecotrin) 81 mg PO DAILY [facility] Last Admin: 01/09/18 09:06 Dose: 81 mg Ergocalciferol (Drisdol 50,000 Intl Units Cap) 1 cap PO Q7D [facility] Last Admin: 01/07/18 13:38 Dose: 1 cap Famotidine (Pepcid) 40 mg PO HS [facility] Last Admin: 01/08/18 21:21 Dose: 40 mg Hydralazine HCl (Apresoline) 25 mg PO BID [facility] Last Admin: 01/09/18 09:04 Dose: 25 mg Levofloxacin/Dextrose (Levaquin 500mg) 500 mg in 100 mls @ 100 mls/hr IVPB Q48H [facility] PRN Reason: Protocol Last Admin: 01/07/18 21:45 Dose: 100 mls/hr Sodium Chloride (Sodium Chloride 0.45%) 1,000 mls @ 80 mls/hr IV .[id number] [facility] Insulin Human Regular (Humulin R Low) 0 units SC ACHS [facility] PRN Reason: Protocol Last Admin: 01/09/18 08:13 Dose: Not Given Metoprolol Tartrate (Lopressor) 25 mg PO BID [facility] Last Admin: 01/09/18 08:13 Dose: 25 mg Ondansetron HCl (Zofran Inj) 4 mg IVP Q6 PRN PRN Reason: Nausea/Vomiting Last Admin: 01/07/18 08:38 Dose: 4 mg - Labs Labs: 01/07/18 06:30 01/09/18 06:30 Assessment and Plan - Assessment and Plan (Free Text) Plan: 72 yr male w/ hstory of CVA (L weakness), HTN, everyday smoker, nonambulatory, CABG, & DM II. Today, seen at bedside. Pt c/o nonspecific stomach pain & hiccups. Denies any fever, chills, chest pain, shortness of breath, diarrhea, constipation, or urinary problems.pt is seen and examined at bed side , looking comfortable . agreed all above . will f/u
[2018-01-06 18:12] LABS: COMPLEMENT C4 19.3 mg/dL (14.0-44.0)
--- NOTE | 2018-01-06 18:34 | CP.PCM.PN ---
Subjective - Date & Time of Evaluation Date of Evaluation: 01/06/18 Time of Evaluation: 16:00 - Subjective Subjective: Infectious Disease Follow Up: January 06, 2018 72 yo male found be family to be confused with poor oral intake, dizziness, weakness, lightheadedness, and decreased urination. Found to have acute renal failure in ER. The patient is a extremely poor historian. The patient is also wheelchair bound. Changes started one week ago. Medical history includes HTN, CVA with residual left sided weakness, Hepatitis C, and wheelchair bound. Urine cultures with gram negative shasta growth. Limited antibiotic choices due to PCN allergies. Objective - Vital Signs/Intake and Output Vital Signs (last 24 hours): Temp Pulse Resp BP Pulse Ox 99.0 F 83 18 138/78 97 01/06/18 08:00 01/06/18 08:00 01/06/18 08:00 01/06/18 08:00 01/06/18 08:00 Intake and Output: 01/06/18 01/06/18 06:59 18:59 Intake Total 540 180 Output Total 1000 900 Balance -460 -720 - Medications Medications: Current Medications Acetaminophen (Tylenol 325mg Tab) 650 mg PO Q4H PRN PRN Reason: pain fever Albuterol/Ipratropium (Duoneb 3 Mg/0.5 Mg (3 Ml) Ud) 3 ml IH [id number] [facility] Last Admin: 01/06/18 13:08 Dose: 3 ml Aspirin (Ecotrin) 81 mg PO DAILY [facility] Last Admin: 01/06/18 09:28 Dose: 81 mg Famotidine (Pepcid) 40 mg PO HS [facility] Last Admin: 01/05/18 22:09 Dose: 40 mg Aztreonam 500 mg/ Sodium (Chloride) 100 mls @ 100 mls/hr IVPB Q8 [facility] PRN Reason: Protocol Last Admin: 01/06/18 13:17 Dose: 100 mls/hr Sodium Chloride (Sodium Chloride 0.9%) 1,000 mls @ 80 mls/hr IV .[id number] [facility] Insulin Human Regular (Humulin R Low) 0 units SC ACHS [facility] PRN Reason: Protocol Last Admin: 01/06/18 16:23 Dose: 2 units Ondansetron HCl (Zofran Inj) 4 mg IVP Q6 PRN PRN Reason: Nausea/Vomiting - Labs Labs: 01/06/18 07:34 01/06/18 07:34 - Constitutional Appears: Non-toxic, No Acute Distress, Chronically Ill - Head Exam Head Exam: ATRAUMATIC, NORMOCEPHALIC - Eye Exam Eye Exam: EOMI, PERRL Pupil Exam: NORMAL ACCOMODATION, PERRL - ENT Exam ENT Exam: Mucous Membranes Moist, Normal External Ear Exam, TM's Normal Bilaterally - Neck Exam Neck Exam: Full ROM, Normal Inspection - Respiratory Exam Respiratory Exam: Clear to Ausculation Bilateral, NORMAL BREATHING PATTERN. absent: Rales, Rhonchi, Wheezes - Cardiovascular Exam Cardiovascular Exam: REGULAR RHYTHM, RRR, +S1, +S2 - GI/Abdominal Exam GI & Abdominal Exam: Soft, Normal Bowel Sounds. absent: Distended, Tenderness - Extremities Exam Extremities Exam: absent: Joint Swelling, Pedal Edema - Neurological Exam Neurological Exam: Alert, Awake, CN II-XII Intact, Oriented x3 - Psychiatric Exam Psychiatric exam: Normal Affect, Normal Mood - Skin Skin Exam: Intact, Normal Color Assessment and Plan - Assessment and Plan (Free Text) Assessment: 72 yo male who appears calm at this time with lethargy, decreased urinary output, and findings of acute renal failure on hospitalization. The patient with mild leukocytosis. Afebrile at this time. Chest X-ray with no active disease. Cannot rule out UTI as of yet. On Aztreonam due to PCN Allergies. Supportive care. Gram negative rods in urine cultures. May need to consider addition of Aminoglycoside for treatment. Pimentel cultures. Monitor fever trend and WBC trend. Thank you for allowing me to participate in the care of the patient, we will follow with you.
[2018-01-06 19:04] LABS: CREATININE,RANDOM URINE 50 mg/dL; TOTAL PROTEIN,RANDOM URINE 31 mg/L
--- NOTE | 2018-01-06 19:47 | CP.PCM.PN ---
Subjective - Date & Time of Evaluation Date of Evaluation: 01/06/18 Time of Evaluation: 10:30 - Subjective Subjective: Patient urinating more; tolerating diet; no other complaints; Objective - Vital Signs/Intake and Output Vital Signs (last 24 hours): Temp Pulse Resp BP Pulse Ox 99.0 F 83 18 138/78 97 01/06/18 08:00 01/06/18 08:00 01/06/18 08:00 01/06/18 08:00 01/06/18 08:00 Intake and Output: 01/06/18 01/07/18 18:59 06:59 Intake Total 180 Output Total 900 Balance -720 - Medications Medications: Current Medications Acetaminophen (Tylenol 325mg Tab) 650 mg PO Q4H PRN PRN Reason: pain fever Albuterol/Ipratropium (Duoneb 3 Mg/0.5 Mg (3 Ml) Ud) 3 ml IH [id number] [facility] Last Admin: 01/06/18 13:08 Dose: 3 ml Aspirin (Ecotrin) 81 mg PO DAILY [facility] Last Admin: 01/06/18 09:28 Dose: 81 mg Famotidine (Pepcid) 40 mg PO HS [facility] Last Admin: 01/05/18 22:09 Dose: 40 mg Aztreonam 500 mg/ Sodium (Chloride) 100 mls @ 100 mls/hr IVPB Q8 [facility] PRN Reason: Protocol Last Admin: 01/06/18 13:17 Dose: 100 mls/hr Sodium Chloride (Sodium Chloride 0.9%) 1,000 mls @ 80 mls/hr IV .[id number] [facility] Insulin Human Regular (Humulin R Low) 0 units SC ACHS [facility] PRN Reason: Protocol Last Admin: 01/06/18 16:23 Dose: 2 units Ondansetron HCl (Zofran Inj) 4 mg IVP Q6 PRN PRN Reason: Nausea/Vomiting - Labs Labs: 01/06/18 07:34 01/06/18 07:34 - Constitutional Appears: Non-toxic, No Acute Distress - Eye Exam Eye Exam: Normal appearance - ENT Exam ENT Exam: Mucous Membranes Moist - Respiratory Exam Respiratory Exam: Clear to Ausculation Bilateral. absent: Respiratory Distress - Cardiovascular Exam Cardiovascular Exam: RRR, +S1, +S2 - GI/Abdominal Exam GI & Abdominal Exam: Soft. absent: Distended, Tenderness - Extremities Exam Additional comments: no leg edema; - Neurological Exam Neurological Exam: Alert, Awake - Psychiatric Exam Psychiatric exam: absent: Agitated - Skin Skin Exam: Warm. absent: Cyanosis Assessment and Plan (1) Acute renal failure Assessment & Plan: Clinically consistent with ATN in the setting of volume depletion and being on ARB; renal function now improving with marked increase in urine output; HD catheter placement halted, does not appear he will need dialysis; baseline renal function still unknown, will try to obtain records from [place]; Urine studies now not showing significant proteinuria which makes glomerulonephritis less of a concern; Otherwise, need to monitor for electrolyte imbalances and polyuria; -continue IVF w/ NS at 80 cc/hr Status: Acute (2) Electrolyte abnormality Assessment & Plan: Mild hypokalemia and hypomagnesemia, both being replenished; Status: Acute (3) Hepatitis C Assessment & Plan: Ab positive, however, complements not low so hep C related glomerulonephritis is highly unlikely; nevertheless, should have f/u HCV PCR and possible treatment as outpatient; Status: Acute (4) Hematuria Assessment & Plan: Glomerular process now seems less likely; will need outpatient urology referral ; urine cytology ordered; Status: Acute
--- NOTE | 2018-01-07 01:34 | PN ---
DATE: 01/06/2018 PULMONARY PROGRESS NOTE REFERRING PHYSICIAN: Marina Weir MD. SUBJECTIVE: He is lying in the bed, head at 45 degrees, much more awake and alert. Feels okay. Has some hiccups. No chest pain, has some cough though. No abdominal pain. No diarrhea. No leg pain or leg swelling reported. Patient's brother is at bedside. PHYSICAL EXAMINATION: VITAL SIGNS: Temperature is 99, heart rate 83, respiratory rate is 20, blood pressure 138/78, pulse ox 97% room air. HEENT: Moist mucous membrane. Crowded airway. Mallampati score is IV. NECK: Supple. No JVD. LUNGS: Fair airflow. No rhonchi. HEART: S1 and S2. ABDOMEN: Soft, nontender. No organomegaly. EXTREMITIES: No edema. NEUROLOGIC: Awake, alert. Follows simple commands. MEDICATIONS: He is on 500 mg q.8 hour, DuoNeb q.6 hour, Ecotrin 81 mg daily, insulin coverage, Pepcid 40 mg daily, IV fluid normal saline 80 mL per hour, Tylenol p.r.n., Zofran p.r.n. LABORATORY DATA: Shows hemoglobin 12.4, hematocrit 34.4, WBC 9.9, and platelet is 146. Sodium 136, potassium 3.3, chloride 102, bicarbonate 19, BUN 81, creatinine 6.4, glucose 269, calcium 8.1, phosphorous 3.6, magnesium 1.4. AST 25, ALT 51, alk phos is 44, albumin is 3.3. Microbiology: Urine culture has gram-negative rods, more than 100,000 colonies. IMPRESSION AND PLAN: Acute renal failure, urinary tract infection, history of cerebrovascular disease, hypertension, coronary artery disease, rule out cholelithiasis, status post diarrhea. Case discussed with patient's brother at bedside. All the questions answered. Continue IV fluid. Keep head at 45 degrees. Antibiotics, bronchodilators. Gastric and deep venous thrombosis prophylaxis. Follow up labs in the morning. We will follow with you. Kevin Riojas MD
[2018-01-07] MEDS: Sodium Chloride 0.9% 1,000 ML IV SCH ×2 (04:49→05:41)
[2018-01-07] MEDS: Insulin Reg-LOW-Coverage SC SCH ×5 (04:49→21:43)
[2018-01-07 07:04] LABS: HEMOGLOBIN 11.9 g/dL (14.0-18.0); MEAN CELL VOLUME 85.9 fl (80.0-105.0); MEAN CORPUSCULAR HEMOGLOBIN 30.5 pg (25.0-35.0); MEAN CORPUSCULAR HGB CONC 35.5 g/dl (31.0-37.0); MEAN PLATELET VOLUME 11.4 fl (7.0-11.0); RBC 3.9 10^6/uL (3.5-6.1); RED CELL DISTRIBUTION WIDTH 13.2 % (11.5-14.5); WHITE BLOOD COUNT 7.5 10^3/ul (4.5-11.0)
[2018-01-07] MEDS: Albuterol-Ipratrop 3 mg / 0.5 (3 ml) UD IH SCH ×3 (07:19→22:00)
[2018-01-07 07:22] LABS: ALBUMIN 3.1 g/dL (3.0-4.8); CALCIUM 7.9 mg/dL (8.4-10.5)
[2018-01-07] MEDS ORDERED: Potassium Chloride 20 mEq ER Tab PO ONE (07:49)
[2018-01-07] MEDS ORDERED: Ergocalciferol 50,000 Intl Units Cap PO SCH (10:00)
[2018-01-07] MEDS ORDERED: Sodium Chloride 0.45% 1,000 ML IV SCH (12:00)
--- NOTE | 2018-01-07 15:10 | PN ---
DATE: 01/07/2018 PULMONARY PROGRESS NOTE REFERRING PHYSICIAN: Dr. Weir. SUBJECTIVE: He is lying in the bed, sleepy, arousable. Night was unremarkable. Feels better. Decreased cough. No headache. No shortness of breath. No nausea, no vomiting. No diarrhea. No leg pain or leg swelling. OBJECTIVE GENERAL: In no acute distress. VITAL SIGNS: Temperature is 98, heart rate is 78, respiratory rate is 18, blood pressure 175/90 and pulse ox 96% on room air. HEENT: Moist mucous membranes. Crowded airway. Mallampati score is IV. NECK: Supple. No JVD. LUNGS: Has a fair airflow with rhonchi. HEART: S1 and S2. ABDOMEN: Soft and nontender. No organomegaly. EXTREMITIES: No edema. NEUROLOGIC: Awake and alert. Follows simple commands. MEDICATIONS: He is on 500 mg q. 8 hour, vitamin D 50,000 units q. 7 days, DuoNebs q. 6 hour, Ecotrin 81 mg daily, insulin coverage, Pepcid 40 mg daily, IV fluid normal saline 80 mL per hour, Tylenol p.r.n., Zofran p.r.n. DATA: Shows hemoglobin 11.9, hematocrit 33.5, WBC 7.5, platelet is 144,000. Sodium 139, potassium 2.2, chloride 106, bicarbonate 20, BUN is 66, creatinine 4.6, glucose is 212, calcium is 7.9, AST 25, ALT 43, alkaline phosphatase is 43, albumin is 3.1. Hepatitis C antibody is reactive. Microbiology: Urine culture has Klebsiella, which seems like is sensitive to cephalosporin. IMPRESSION AND PLAN: Acute renal failure, urinary tract infection, history of cerebrovascular disease, hypertension, coronary artery disease, cholelithiasis, status post diarrhea. Pulmonary point of view, doing okay. Keep head at [address] him on BiPAP while sleeping. Continue antibiotics. Follow up BUN and creatinine. We need to add antihypertensive medication with advanced sleep study upon discharge as an outpatient. Kevin Riojas MD [facility] # [id number]
--- NOTE | 2018-01-07 19:25 | CP.PCM.PN ---
Subjective - Date & Time of Evaluation Date of Evaluation: 01/07/18 Time of Evaluation: 18:30 - Subjective Subjective: Infectious Disease Follow Up: January 07, 2018 72 yo male found be family to be confused with poor oral intake, dizziness, weakness, lightheadedness, and decreased urination. Found to have acute renal failure in ER. The patient is a extremely poor historian. The patient is also wheelchair bound. Changes started one week ago. Medical history includes HTN, CVA with residual left sided weakness, Hepatitis C, and wheelchair bound. Urine cultures with gram negative shasta growth identified as Klebsiella. Limited antibiotic choices due to PCN allergies. Currently on Aztreonam for antibiotic coverage. He is more awake and alert. He is eating better and answers questions more consistently. Objective - Vital Signs/Intake and Output Vital Signs (last 24 hours): Temp Pulse Resp BP Pulse Ox 99.3 F 78 20 152/74 H 98 01/07/18 16:00 01/07/18 16:00 01/07/18 16:00 01/07/18 18:12 01/07/18 16:00 Intake and Output: 01/07/18 01/08/18 18:59 06:59 Intake Total 480 Output Total 1300 Balance -820 - Medications Medications: Current Medications Acetaminophen (Tylenol 325mg Tab) 650 mg PO Q4H PRN PRN Reason: pain fever Albuterol/Ipratropium (Duoneb 3 Mg/0.5 Mg (3 Ml) Ud) 3 ml IH [id number] [facility] Last Admin: 01/07/18 13:01 Dose: 3 ml Aspirin (Ecotrin) 81 mg PO DAILY [facility] Last Admin: 01/07/18 09:04 Dose: 81 mg Ergocalciferol (Drisdol 50,000 Intl Units Cap) 1 cap PO Q7D [facility] Last Admin: 01/07/18 13:38 Dose: 1 cap Famotidine (Pepcid) 40 mg PO HS [facility] Last Admin: 01/07/18 04:48 Dose: Not Given Aztreonam 500 mg/ Sodium (Chloride) 100 mls @ 100 mls/hr IVPB Q8 [facility] PRN Reason: Protocol Last Admin: 01/07/18 13:48 Dose: 100 mls/hr Sodium Chloride (Sodium Chloride 0.45%) 1,000 mls @ 60 mls/hr IV .[id number] [facility] Last Admin: 01/07/18 13:40 Dose: 60 mls/hr Insulin Human Regular (Humulin R Low) 0 units SC ACHS [facility] PRN Reason: Protocol Last Admin: 01/07/18 18:11 Dose: 2 units Metoprolol Tartrate (Lopressor) 25 mg PO BID [facility] Last Admin: 01/07/18 18:12 Dose: 25 mg Ondansetron HCl (Zofran Inj) 4 mg IVP Q6 PRN PRN Reason: Nausea/Vomiting Last Admin: 01/07/18 08:38 Dose: 4 mg - Labs Labs: 01/07/18 06:30 01/07/18 06:30 - Constitutional Appears: Non-toxic, No Acute Distress, Chronically Ill - Head Exam Head Exam: ATRAUMATIC, NORMOCEPHALIC - Eye Exam Eye Exam: EOMI, PERRL Pupil Exam: NORMAL ACCOMODATION, PERRL - ENT Exam ENT Exam: Mucous Membranes Moist, Normal External Ear Exam, TM's Normal Bilaterally - Neck Exam Neck Exam: Full ROM, Normal Inspection - Respiratory Exam Respiratory Exam: Clear to Ausculation Bilateral, NORMAL BREATHING PATTERN. absent: Rales, Rhonchi, Wheezes - Cardiovascular Exam Cardiovascular Exam: REGULAR RHYTHM, RRR, +S1, +S2 - GI/Abdominal Exam GI & Abdominal Exam: Soft, Normal Bowel Sounds. absent: Distended, Tenderness - Extremities Exam Extremities Exam: absent: Joint Swelling, Pedal Edema - Neurological Exam Neurological Exam: Alert, Awake, CN II-XII Intact, Oriented x3 - Psychiatric Exam Psychiatric exam: Normal Affect, Normal Mood - Skin Skin Exam: Intact, Normal Color Assessment and Plan - Assessment and Plan (Free Text) Assessment: 72 yo male who appears calm at this time with lethargy, decreased urinary output, and findings of acute renal failure on hospitalization. The patient with mild leukocytosis. Afebrile at this time. Chest X-ray with no active disease. Cannot rule out UTI as of yet. On Aztreonam due to PCN Allergies. Supportive care. Gram negative rods in urine cultures identified as Klebsiella. May need to consider addition of Aminoglycoside for treatment. Pimentel cultures. Monitor fever trend and WBC trend. D/C Aztreonam and start Levaquin. Thank you for allowing me to participate in the care of the patient, we will follow with you.
[2018-01-07] MEDS ORDERED: levoFLOXacin 500 mg in D5W 500 MG/100 ML BAG IVPB SCH (19:30)
--- NOTE | 2018-01-07 22:08 | CP.PCM.PN ---
Subjective - Date & Time of Evaluation Date of Evaluation: 01/07/18 Time of Evaluation: 10:00 - Subjective Subjective: Patient tolerating diet; no shortness of breath, nausea/vomiting; still with hiccups; Objective - Vital Signs/Intake and Output Vital Signs (last 24 hours): Temp Pulse Resp BP Pulse Ox 99.3 F 78 20 152/74 H 98 01/07/18 16:00 01/07/18 16:00 01/07/18 16:00 01/07/18 18:12 01/07/18 16:00 Intake and Output: 01/07/18 01/08/18 18:59 06:59 Intake Total 480 Output Total 1300 Balance -820 - Medications Medications: Current Medications Acetaminophen (Tylenol 325mg Tab) 650 mg PO Q4H PRN PRN Reason: pain fever Albuterol/Ipratropium (Duoneb 3 Mg/0.5 Mg (3 Ml) Ud) 3 ml IH [id number] [facility] Last Admin: 01/07/18 13:01 Dose: 3 ml Aspirin (Ecotrin) 81 mg PO DAILY [facility] Last Admin: 01/07/18 09:04 Dose: 81 mg Ergocalciferol (Drisdol 50,000 Intl Units Cap) 1 cap PO Q7D [facility] Last Admin: 01/07/18 13:38 Dose: 1 cap Famotidine (Pepcid) 40 mg PO HS [facility] Last Admin: 01/07/18 21:45 Dose: 40 mg Sodium Chloride (Sodium Chloride 0.45%) 1,000 mls @ 60 mls/hr IV .[id number] [facility] Last Admin: 01/07/18 13:40 Dose: 60 mls/hr Levofloxacin/Dextrose (Levaquin 500mg) 500 mg in 100 mls @ 100 mls/hr IVPB Q48H [facility] PRN Reason: Protocol Last Admin: 01/07/18 21:45 Dose: 100 mls/hr Insulin Human Regular (Humulin R Low) 0 units SC ACHS [facility] PRN Reason: Protocol Last Admin: 01/07/18 21:43 Dose: Not Given Metoprolol Tartrate (Lopressor) 25 mg PO BID [facility] Last Admin: 01/07/18 18:12 Dose: 25 mg Ondansetron HCl (Zofran Inj) 4 mg IVP Q6 PRN PRN Reason: Nausea/Vomiting Last Admin: 01/07/18 08:38 Dose: 4 mg - Labs Labs: 01/07/18 06:30 01/07/18 06:30 - Constitutional Appears: Non-toxic, No Acute Distress - Eye Exam Eye Exam: Normal appearance - Respiratory Exam Respiratory Exam: Clear to Ausculation Bilateral. absent: Respiratory Distress - Cardiovascular Exam Cardiovascular Exam: RRR, +S1, +S2 - GI/Abdominal Exam GI & Abdominal Exam: Soft. absent: Distended, Tenderness - Extremities Exam Additional comments: no leg edema; - Neurological Exam Neurological Exam: Alert, Awake - Psychiatric Exam Psychiatric exam: Normal Affect, Normal Mood. absent: Agitated - Skin Skin Exam: Warm. absent: Cyanosis Assessment and Plan (1) Acute renal failure Assessment & Plan: ATN, resolving; polyuric phase of recovery but urine output is stabilizing; will change IVF to 1/2NS at 60 cc/hr; replenishing potassium; Status: Acute (2) Electrolyte abnormality Assessment & Plan: Mild metabolic acidosis and hyperkalemia; should improve as renal tubular function returns; Status: Acute (3) Hepatitis C Assessment & Plan: Will check viral load; otherwise, doesn't appear to have renal involvement ( complements normal); Status: Chronic (4) Hematuria Assessment & Plan: Serologic workup sent for glomerular causes of hematuria; if negative and renal function normalizes, should look for urologic lesion (nephrolithiasis noted but shouldn't cause this much hematuria); can be pursued as outpatient; Status: Acute (5) HTN (hypertension) Assessment & Plan: BP elevated; started on metoprolol today, decreasing IVF will also help; monitor ; no ARB/MP-I and diuretics for now as patient is still at risk of getting volume depleted from urinary losses; Status: Acute (6) Diabetes Assessment & Plan: New diagnosis; currently just on coverage; will have to re-assess meds once renal function stabilized (ie. will have greater insulin requirement with improved renal function); Status: Acute
[2018-01-08] MEDS: Albuterol-Ipratrop 3 mg / 0.5 (3 ml) UD IH SCH ×5 (03:20→19:36)
[2018-01-08] MEDS: Insulin Reg-LOW-Coverage SC SCH ×4 (08:35→21:20)
[2018-01-08 10:29] LABS: ALB/GLOB RATIO 0.9 (1.1-1.8); ALBUMIN 2.8 g/dL (3.0-4.8); CALCIUM 7.1 mg/dL (8.4-10.5)
[2018-01-08] MEDS ORDERED: Sodium Chloride 0.45% 1,000 ML IV SCH (11:21)
--- NOTE | 2018-01-08 11:23 | CP.PCM.PN ---
Subjective - Date & Time of Evaluation Date of Evaluation: 01/08/18 Time of Evaluation: 11:20 - Subjective Subjective: 72 yo M w/ pmh of htn, hep C, s/p CVA w/ R residual weakness, admitted with acute renal failure; Patient still with poor appetite; otherwise, no nausea/vomiting or shortness of breath; Objective - Vital Signs/Intake and Output Vital Signs (last 24 hours): Temp Pulse Resp BP Pulse Ox 97.9 F 94 H 24 138/82 97 01/08/18 07:48 01/08/18 07:48 01/08/18 07:48 01/08/18 09:26 01/08/18 07:48 Intake and Output: 01/08/18 01/08/18 06:59 18:59 Intake Total 600 Output Total 1600 Balance -1000 - Medications Medications: Current Medications Acetaminophen (Tylenol 325mg Tab) 650 mg PO Q4H PRN PRN Reason: pain fever Albuterol/Ipratropium (Duoneb 3 Mg/0.5 Mg (3 Ml) Ud) 3 ml IH [id number] [facility] Last Admin: 01/08/18 08:15 Dose: 3 ml Amlodipine Besylate (Norvasc) 5 mg PO DAILY [facility] Last Admin: 01/08/18 09:22 Dose: 5 mg Aspirin (Ecotrin) 81 mg PO DAILY [facility] Last Admin: 01/08/18 09:26 Dose: 81 mg Ergocalciferol (Drisdol 50,000 Intl Units Cap) 1 cap PO Q7D [facility] Last Admin: 01/07/18 13:38 Dose: 1 cap Famotidine (Pepcid) 40 mg PO HS [facility] Last Admin: 01/07/18 21:45 Dose: 40 mg Sodium Chloride (Sodium Chloride 0.45%) 1,000 mls @ 60 mls/hr IV .[id number] [facility] Last Admin: 01/07/18 13:40 Dose: 60 mls/hr Levofloxacin/Dextrose (Levaquin 500mg) 500 mg in 100 mls @ 100 mls/hr IVPB Q48H [facility] PRN Reason: Protocol Last Admin: 01/07/18 21:45 Dose: 100 mls/hr Insulin Human Regular (Humulin R Low) 0 units SC ACHS [facility] PRN Reason: Protocol Last Admin: 01/08/18 08:35 Dose: Not Given Metoprolol Tartrate (Lopressor) 25 mg PO BID [facility] Last Admin: 01/08/18 09:26 Dose: 25 mg Ondansetron HCl (Zofran Inj) 4 mg IVP Q6 PRN PRN Reason: Nausea/Vomiting Last Admin: 01/07/18 08:38 Dose: 4 mg - Labs Labs: 01/07/18 06:30 01/08/18 07:00 - Constitutional Appears: Non-toxic, No Acute Distress - Eye Exam Eye Exam: Normal appearance. absent: Scleral icterus - ENT Exam ENT Exam: Mucous Membranes Moist - Respiratory Exam Respiratory Exam: Clear to Ausculation Bilateral. absent: Respiratory Distress - Cardiovascular Exam Cardiovascular Exam: RRR, +S1, +S2 - GI/Abdominal Exam GI & Abdominal Exam: Soft. absent: Distended, Tenderness - Extremities Exam Additional comments: no leg edema; - Neurological Exam Neurological Exam: Alert, Awake - Psychiatric Exam Psychiatric exam: Flat Affect. absent: Agitated - Skin Skin Exam: Warm. absent: Cyanosis Assessment and Plan (1) Acute renal failure Assessment & Plan: ATN, resolving; still borderline polyuric so will keep IVF running (increasing 1 /2NS to 80 cc/hr); baseline renal function still unknown, [facility]; otherwise, stable electrolyte and volume status; will continue to monitor labs daily; Status: Acute (2) Electrolyte abnormality Assessment & Plan: Hyopkalemia improved; now mild hypocalcemia (corrected for albumin); will monitor for now; awaiting PTH level to look for evidence of CKD mineral bone disorder; Status: Acute (3) Hepatitis C Assessment & Plan: Vital load sent, awaiting result; Status: Chronic (4) Hematuria Assessment & Plan: Doesn't appear glomerular; repeating UA today; Status: Acute (5) HTN (hypertension) Assessment & Plan: BP improved, on metoprolol 25 bid and amlodipine 5 mg daily, continue same; Status: Acute (6) Diabetes Assessment & Plan: New diagnosis; not eating much so continue just coverage for now; Status: Acute
--- NOTE | 2018-01-08 18:50 | CP.PCM.PN ---
Subjective - Date & Time of Evaluation Date of Evaluation: 01/08/18 Time of Evaluation: 17:00 - Subjective Subjective: Infectious Disease Follow Up: January 08, 2018 72 yo male found be family to be confused with poor oral intake, dizziness, weakness, lightheadedness, and decreased urination. Found to have acute renal failure in ER. The patient is a extremely poor historian. The patient is also wheelchair bound. Changes started one week ago. Medical history includes HTN, CVA with residual left sided weakness, Hepatitis C, and wheelchair bound. Urine cultures with gram negative shasta growth identified as Klebsiella. Limited antibiotic choices due to PCN allergies. Currently on Levaquin for antibiotic coverage. He is more awake and alert. He is eating better and answers questions more consistently. Objective - Vital Signs/Intake and Output Vital Signs (last 24 hours): Temp Pulse Resp BP Pulse Ox 100.8 F H 113 H 22 189/94 H 99 01/08/18 16:00 01/08/18 16:00 01/08/18 16:00 01/08/18 18:18 01/08/18 16:00 Intake and Output: 01/08/18 01/08/18 06:59 18:59 Intake Total 600 320 Output Total 1600 800 Balance -1000 -480 - Medications Medications: Current Medications Acetaminophen (Tylenol 325mg Tab) 650 mg PO Q4H PRN PRN Reason: pain fever Albuterol/Ipratropium (Duoneb 3 Mg/0.5 Mg (3 Ml) Ud) 3 ml IH [id number] [facility] Last Admin: 01/08/18 18:30 Dose: 3 ml Amlodipine Besylate (Norvasc) 10 mg PO DAILY [facility] Aspirin (Ecotrin) 81 mg PO DAILY [facility] Last Admin: 01/08/18 09:26 Dose: 81 mg Ergocalciferol (Drisdol 50,000 Intl Units Cap) 1 cap PO Q7D [facility] Last Admin: 01/07/18 13:38 Dose: 1 cap Famotidine (Pepcid) 40 mg PO HS [facility] Last Admin: 01/07/18 21:45 Dose: 40 mg Hydralazine HCl (Apresoline) 25 mg PO BID [facility] Last Admin: 01/08/18 18:18 Dose: 25 mg Levofloxacin/Dextrose (Levaquin 500mg) 500 mg in 100 mls @ 100 mls/hr IVPB Q48H [facility] PRN Reason: Protocol Last Admin: 01/07/18 21:45 Dose: 100 mls/hr Sodium Chloride (Sodium Chloride 0.45%) 1,000 mls @ 80 mls/hr IV .[id number] [facility] Insulin Human Regular (Humulin R Low) 0 units SC ACHS [facility] PRN Reason: Protocol Last Admin: 01/08/18 16:35 Dose: Not Given Metoprolol Tartrate (Lopressor) 25 mg PO BID [facility] Last Admin: 01/08/18 18:18 Dose: 25 mg Ondansetron HCl (Zofran Inj) 4 mg IVP Q6 PRN PRN Reason: Nausea/Vomiting Last Admin: 01/07/18 08:38 Dose: 4 mg - Labs Labs: 01/07/18 06:30 01/08/18 07:00 - Constitutional Appears: Non-toxic, No Acute Distress, Chronically Ill - Head Exam Head Exam: ATRAUMATIC, NORMOCEPHALIC - Eye Exam Eye Exam: EOMI, PERRL Pupil Exam: NORMAL ACCOMODATION, PERRL - ENT Exam ENT Exam: Mucous Membranes Moist, Normal External Ear Exam, TM's Normal Bilaterally - Neck Exam Neck Exam: Full ROM, Normal Inspection - Respiratory Exam Respiratory Exam: Clear to Ausculation Bilateral, NORMAL BREATHING PATTERN. absent: Rales, Rhonchi, Wheezes - Cardiovascular Exam Cardiovascular Exam: REGULAR RHYTHM, RRR, +S1, +S2 - GI/Abdominal Exam GI & Abdominal Exam: Soft, Normal Bowel Sounds. absent: Distended, Tenderness - Extremities Exam Extremities Exam: absent: Joint Swelling, Pedal Edema - Neurological Exam Neurological Exam: Alert, Awake, CN II-XII Intact, Oriented x3 - Psychiatric Exam Psychiatric exam: Normal Affect, Normal Mood - Skin Skin Exam: Intact, Normal Color Assessment and Plan - Assessment and Plan (Free Text) Assessment: 72 yo male who appears calm at this time with lethargy, decreased urinary output, and findings of acute renal failure on hospitalization. The patient with mild leukocytosis. Afebrile at this time. Chest X-ray with no active disease. Cannot rule out UTI as of yet. Was on Aztreonam due to PCN Allergies. Supportive care. Gram negative rods in urine cultures identified as Klebsiella sensitive to Fluoroquinolones. Pimentel cultures. Monitor fever trend and WBC trend. Continue on Levaquin for 5-7 days in total. Can consider oral completion after 3 days of IV Levaquin. Thank you for allowing me to participate in the care of the patient, we will follow with you.
[2018-01-09] MEDS: Albuterol-Ipratrop 3 mg / 0.5 (3 ml) UD IH SCH ×4 (01:04→13:23)
--- NOTE | 2018-01-09 01:35 | PN ---
DATE: 01/08/2018 PULMONARY PROGRESS NOTE REFERRING PHYSICIAN: Dr. Weir. SUBJECTIVE: He is lying in bed, head at 45 degrees, has some cough, hiccups. No nausea. No vomiting. No abdominal pain. No diarrhea. No leg pain or leg swelling. OBJECTIVE: GENERAL: In no acute distress. VITAL SIGNS: Temperature is 100.8, respiratory rate is 20, blood pressure , heart rate is 113. HEENT: Moist mucous membranes. Crowded airway. NECK: Supple. No JVD. LUNGS: Have a fair airflow with few rhonchi. HEART: S1, S2. ABDOMEN: Positive bowel sounds. Mild epigastric pain. EXTREMITIES: There is no edema. NEUROLOGIC: Awake and alert. Follows simple commands. MEDICATIONS: He is on hydralazine 25 mg twice a day, vitamin D 50,000 units q. 7 days, DuoNeb q. 6 hour, Ecotrin 81 mg daily, insulin coverage, Levaquin 500 mg daily, metoprolol tartarate 25 mg twice a day, Norvasc 10 mg daily, Pepcid 40 mg daily, IV fluid half normal saline 80 mL per hour, Tylenol p.r.n., Zofran p.r.n. No new changes in medications reported since yesterday. LABORATORY DATA: Reviewed and noted. Sodium 134, potassium 3.7, chloride is 103, bicarbonate is 19, BUN 48, creatinine 3.1, glucose 137, calcium is 7.1, AST is 31, ALT 35, alk phos is 36, albumin is 3.8. Hepatitis C antibodies are negative. Urine culture has a Klebsiella. IMPRESSION AND PLAN: Acute renal failure, urinary tract infection, history of cerebrovascular accident, hypertension, coronary artery disease, cholelithiasis, status post diarrhea. Pulmonary point of view, he is doing okay. Keep head at 45 degrees. Encourage BiPAP use. Avoid sedative. Gastric prophylaxis. SCDs to lower extremities. Continue antibiotics. Follow up with Nephrology and Infectious Diseases. Thank you and we will follow up with you. Kevin Riojas MD
--- NOTE | 2018-01-09 04:22 | PN ---
DATE: The patient is a 72-year-old male. SUBJECTIVE: The patient seen and examined at the bedside. Daughter and brother was sitting on the bedside also. The patient has residual weakness on the right side, admitted with acute renal failure, still appetite is poor. No nausea, vomiting or shortness of breath. Today, he has fever; the nurse, Jessica, called me, a 100 plus. The patient's blood pressure is high. I increase amlodipine from 5 to 10 and added hydralazine. No hematuria. No hematochezia. The patient is a poor historian. PHYSICAL EXAMINATION: VITAL SIGNS: Temperature 97.9, pulse 94, respiratory rate 24, blood pressure 138/82, pulse oximetry of 97. HEENT: Head is normocephalic and atraumatic. Eyes, PERRLA. Extraocular muscles are intact. Conjunctivae are clear. Nose is patent. Mucous membranes are moist. NECK: Supple. No carotid bruits, JVD, or thyromegaly. CHEST: Bilaterally symmetrical. HEART: S1 and S2 positive. LUNGS: Clear to auscultation. ABDOMEN: Soft. Bowel sounds present. No organomegaly. EXTREMITIES: No edema. No cyanosis. NEUROLOGIC: The patient is awake and alert. Moving all four extremities. No focal deficits. MEDICATIONS: Tylenol, DuoNeb, Norvasc, Ecotrin, vitamin D, Pepcid, Levaquin, insulin, Lopressor, Zofran. LABORATORY DATA: White blood cell is 7.5, hemoglobin 11.9, hematocrit 33.5, platelets 144. Sodium 134, potassium 3.7, BUN 14, creatinine 3.1, glucose is 137. ASSESSMENT AND PLAN: Mr. Humberto London is a 72-year-old male with anemia, renal insufficiency improving, hammerer is on the case. Discussion done with the hammerer, getting IV fluid, hyperglycemia, electrolyte imbalance, fixed, hepatitis C, viral load sent with, waiting for the results. History of hematuria, hypertension. The patient was on metoprolol 25 mg b.i.d., amlodipine 5, but blood pressure is high. I changed amlodipine from 5 to 10 and gave hydralazine twice a day, diabetes, newly diagnosed, not eating much, so continue just coverage now. Rule out sepsis. Dr. Scott is on the case, getting Levaquin, the patient has gram negative rods in the urine, identified as Klebsiella, may need to consider addition of aminoglycosides for treatment. Pancultures pending. Dr. Scott discontinued the , and started Levaquin. Continue further treatment. Discussion done with brother and daughter. Put bedside physical therapy. We will follow up. Marina Weir MD MTDD
[2018-01-09 07:36] LABS: PH,URINE 5.5 (4.7-8.0); URINE BILIRUBIN NEGATIVE (NEGATIVE); URINE BLOOD MODERATE (NEGATIVE); URINE GLUCOSE (UA) NEGATIVE (NEGATIVE); URINE LEUKOCYTE ESTERASE NEGATIVE Leu/uL (NEGATIVE); URINE NITRATE NEGATIVE (NEGATIVE); URINE PROTEIN TRACE mg/dL (<30 mg/dL)
[2018-01-09 07:38] LABS: ALB/GLOB RATIO 1.1 (1.1-1.8); ALBUMIN 3.3 g/dL (3.0-4.8); CALCIUM 7.8 mg/dL (8.4-10.5)
[2018-01-09 07:39] LABS: URINE APPEARANCE CLEAR (CLEAR); URINE COLOR YELLOW (YELLOW)
[2018-01-09 07:53] LABS: URINE RBC 15 - 20 /hpf (0-2)
[2018-01-09 07:54] LABS: URINE AMORPHOUS SEDIMENT FEW; URINE BACTERIA MOD (NEG)
[2018-01-09 08:05] VITALS: BP 133/70; RESP 20; O2SAT 97
[2018-01-09] MEDS: Insulin Reg-LOW-Coverage SC SCH (08:13)
--- NOTE | 2018-01-09 08:23 | CON ---
DATE: 01/06/2018 CONSULTATION HISTORY OF PRESENT ILLNESS: This is a 72-year-old male who is seen in his bed at [facility]. The patient was admitted with complaints of difficulty urinating and poor appetite. He has a history of CVA with amnesia, left-sided weakness, hypertension, came to the emergency room with decreased p.o. intake, dizziness, lightheadedness and weakness. He had diarrhea and was dehydrated. Andrade catheter was placed and remains in place at this point. The patient is awake, alert and answering questions, but is unable to present coherent history. He reports he had no difficulty voiding and is unsure why the Andrade catheter was placed. PAST MEDICAL HISTORY: Significant for hypertension, CVA, left hemiparesis, coronary artery disease. MEDICATIONS FROM HOME: Include chlorthalidone, Cozaar, propranolol, currently on Azactam, DuoNeb, Ecotrin, insulin coverage, Pepcid, Tylenol and Zofran. FAMILY HISTORY: Negative for this admission. SOCIAL HISTORY: Positive for former smoker, but quit years ago. Negative for smoking. Negative for EtOH. Negative for drug use. REVIEW OF SYSTEMS: Obtained from the patient and the chart. The patient is answering questions. Twelve-point review of systems was obtained. Positive only for hiccups from his point, other positives as per the history of present illness, otherwise the patient denies any acute issues. PHYSICAL EXAMINATION GENERAL: The patient is awake and alert. He is in no acute distress. VITAL SIGNS: He is afebrile, temperature of 99; pulse of 83; BP 130/78; respirations 18. NECK: Supple. There is no adenopathy. CHEST: Reveals normal inspiratory effort. CARDIAC: Shows positive S1 and S2. ABDOMEN: The abdomen is soft, nontender, nondistended. There is no hepatosplenomegaly. There is no costovertebral angle tenderness. : Phallus is normal. There is a Andrade catheter in place which is draining clear colored urine. Scrotum is normal. Testes bilaterally descended, nontender, no masses. Epididymis are normal. EXTREMITIES: No cyanosis or edema. LABORATORY DATA: WBC count was 11.5, now down to 9.9. BUN 81 with a creatinine of 6.4 and creatinine was 6.3 on admission up to 7.2 yesterday. Urinalysis showed positive for protein, positive for glucose, too numerous to count rbc, too numerous to count wbc, nitrites were negative. Urine culture grew gram-negative rods, greater than 100,000 colonies per mL. RADIOLOGIC EXAM: The patient had an abdominal ultrasound from 01/04/2018, which showed kidneys, no hydronephrosis. There is a focus of hyperechogenicity and the lower pole of the left kidney suggestive of a non-obstructing calculus. There are a few hyperechoic foci identified consistent with non-obstructing calculi. There is no hydronephrosis of either kidney noted. The patient had a bladder ultrasound also done on 01/04/2018, which showed Andrade catheter visualized within the bladder. No obvious abnormalities were noted. IMPRESSION AND PLAN: This is a 72-year-old male admitted with renal failure, dehydration. A Andrade catheter was inserted as the patient was reportedly having difficulty voiding; however, it is unclear how much urine was in his bladder. The patient does have renal failure. This likely appears chronic. It is not improved with Andrade drainage and there is no hydronephrosis noted on ultrasound. The patient's urine culture is positive and he is being treated for gram-negative rods in the urine. Urologically, I would maintain the Andrade catheter at this time until the patient's renal function has been addressed. If medically feasible, I would start the patient on tamsulosin daily and plan on a voiding trial when he is making better amounts of urine. The patient will need a Nephrology consultation as well and he has already been seen by Dr. Headley. I would continue as per his plan. Urologically, his renal failure does not appear to be from obstruction. We can plan better imaging of his kidneys regarding the stones with a CT scan or a plain abdominal x-ray but, they do not appear to need any acute urologic intervention at this time. Plan would be if medically able to start on tamsulosin and given the voiding trial and then as far as his renal function as per Dr. Headley's recommendations. Tru Saldivar MD
[2018-01-09 09:09] VITALS: PULSE 106
--- NOTE | 2018-01-09 10:00 | PN ---
DATE: 01/07/2018 SUBJECTIVE: The patient was seen and examined on the bedside. Daughter and brother were sitting on the bedside also. Looking comfortable. No nausea, vomiting or diarrhea. No hematuria or hematochezia. No swelling of the leg. No chest pain. No palpitation. No headache. No dizziness. The patient is a very poor historian. PHYSICAL EXAMINATION: VITAL SIGNS: Temperature 98, heart rate 70, respiratory rate 18, blood pressure 175/90, pulse oximetry 96% on room air. HEENT: Head normocephalic, atraumatic. Eyes, PERRLA. Extraocular movements are intact. Conjunctivae clear. Nose patent. Mucous membranes are moist. NECK: Supple. No carotid bruit, JVD, or thyromegaly. LUNGS: Have fair airflow, with few rhonchi. HEART: S1 and S2 positive. ABDOMEN: Soft, nontender. No organomegaly. EXTREMITIES: No edema. No cyanosis. NEUROLOGIC: The patient is awake and alert. Follow simple commands. MEDICATIONS: Vitamin D, DuoNeb, Ecotrin, insulin, NS, Tylenol and Zofran. LABORATORY DATA: Hemoglobin 11.9, hematocrit noted , white blood cells 7.5, platelets 144,000. Sodium 139, potassium 2.2, BUN 56, creatinine 4.6, glucose 212. AST 25, ALT 43. Hepatitis C antibody is reactive. Urine culture had Klebsiella, sensitive to cephalosporins. ASSESSMENT AND PLAN: The patient is a 72-year-old male with acute renal failure, getting better, construction coordinator is on the case; urinary tract infection, getting antibiotics; history of cerebrovascular accident, hypertension, hepatitis C positive, coronary artery disease, dementia, cholelithiasis, status post diarrhea. Dr. Riojas put the patient on BiPAP. Continue antibiotics. Gastrointestinal and deep vein thrombosis prophylaxis. Length of time discussion done with patient's daughter and brother. All questions answered. We will follow. Marina Weir MD MTDD
[2018-01-09] MEDS ORDERED: Sodium Chloride 0.45% 1,000 ML IV SCH (10:55)
[2018-01-09] MEDS ORDERED: Albuterol-Ipratrop 3 mg / 0.5 (3 ml) UD IH STA (11:22)
[2018-01-09 11:45] LABS: ALPHA-1-GLOBULIN (PEP) 0.4 g/dL (0.2-0.3)
--- NOTE | 2018-01-09 15:24 | RAD ---
PROCEDURE: CHEST RADIOGRAPH, 1 VIEW HISTORY: shortness of breath COMPARISON: Correlation is made with 01/04/2018 FINDINGS: LUNGS: No evidence of new infiltrate or consolidation in the lungs. Focal elevation of the left hemidiaphragm is again noted. PLEURA: No pneumothorax or pleural fluid seen. CARDIOVASCULAR: Normal. OSSEOUS STRUCTURES: No significant abnormalities. VISUALIZED UPPER ABDOMEN: Normal. OTHER FINDINGS: None. IMPRESSION: No active disease.
[2018-01-09 15:32] VITALS: TEMP 98.8
--- NOTE | 2018-01-09 17:01 | CP.PCM.DIS ---
<BennyMoink Mónica - Last Filed: 01/09/18 16:58> Provider - Provider Date of Admission: 01/05/18 14:25 Attending physician: Marina Weir MD Primary care physician: Dr. Weir Consults: Uro - Dr. Yariel Castro - Dr. Riojas ID - Dr. Tyler Ruiz - Dr. Headley Time Spent in preparation of Discharge (in minutes): 40 Diagnosis - Discharge Diagnosis (1) Anemia Status: Acute (2) Hypokalemia Status: Acute (3) CKD (chronic kidney disease) Status: Acute (4) Hypocalcemia Status: Acute (5) Hypomagnesemia Status: Acute (6) Proteinuria Status: Acute (7) Acute renal failure Status: Acute (8) Dehydration Status: Acute (9) Hyperglycemia Status: Acute Hospital Course - Lab Results Lab Results: Most Recent Lab Values WBC 7.5 10^3/ul (4.5-11.0) D 01/07/18 06:30 RBC 3.90 10^6/uL (3.5-6.1) 01/07/18 06:30 Hgb 11.9 g/dL (14.0-18.0) L 01/07/18 06:30 Hct 33.5 % (42.0-52.0) L 01/07/18 06:30 MCV 85.9 fl (80.0-105.0) 01/07/18 06:30 MCH 30.5 pg (25.0-35.0) 01/07/18 06:30 MCHC 35.5 g/dl (31.0-37.0) 01/07/18 06:30 RDW 13.2 % (11.5-14.5) 01/07/18 06:30 Plt Count 144 10^3/uL (120.0-450.0) 01/07/18 06:30 MPV 11.4 fl (7.0-11.0) H 01/07/18 06:30 Gran % 78.8 % (50.0-68.0) H 01/06/18 07:34 Lymph % (Auto) 12.9 % (22.0-35.0) L 01/06/18 07:34 [place] % (Auto) 7.9 % (1.0-6.0) H 01/06/18 07:34 Eos % (Auto) 0.3 % (1.5-5.0) L 01/06/18 07:34 Baso % (Auto) 0.1 % (0.0-3.0) 01/06/18 07:34 Gran # 7.77 (1.4-6.5) H 01/06/18 07:34 Lymph # (Auto) 1.3 (1.2-3.4) 01/06/18 07:34 [place] # (Auto) 0.8 (0.1-0.6) H 01/06/18 07:34 Eos # (Auto) 0.0 (0.0-0.7) 01/06/18 07:34 Baso # (Auto) 0.01 K/mm3 (0.0-2.0) 01/06/18 07:34 Sodium 133 mmol/L (132-148) 01/09/18 06:30 Potassium 3.9 mmol/L (3.6-5.0) 01/09/18 06:30 Chloride 101 mmol/L (98-107) 01/09/18 06:30 Carbon Dioxide 18 mmol/L (21-33) L 01/09/18 06:30 Anion Gap 17 (10-20) 01/09/18 06:30 BUN 38 mg/dL (7-21) H 01/09/18 06:30 Creatinine 2.3 mg/dl (0.8-1.5) H 01/09/18 06:30 Est GFR ( Amer) 34 01/09/18 06:30 Est GFR (Non-Af Amer) 28 01/09/18 06:30 POC Glucose (mg/dL) 133 mg/dL (65-110) H 01/09/18 11:46 Random Glucose 130 mg/dL (70-110) H 01/09/18 06:30 Hemoglobin A1c 8.4 % (4.2-6.5) H 01/05/18 07:30 Calcium 7.8 mg/dL (8.4-10.5) L 01/09/18 06:30 Phosphorus 3.6 mg/dL (2.5-4.5) 01/06/18 07:34 Magnesium 1.4 mg/dL (1.7-2.2) L 01/06/18 07:34 Iron 22 ug/dL (45-180) L 01/05/18 07:30 TIBC 127 ug/dL (261-462) L 01/05/18 07:30 % Saturation 18 % (20-55) L 01/05/18 07:30 Total Bilirubin 1.2 mg/dL (0.2-1.3) 01/09/18 06:30 AST 37 U/L (17-59) 01/09/18 06:30 ALT 39 U/L (7-56) 01/09/18 06:30 Alkaline Phosphatase 40 U/L (38-126) 01/09/18 06:30 Total Protein 6.3 g/dL (5.8-8.3) 01/09/18 06:30 Total Protein (PEP) 5.8 g/dL (6.1-8.1) L 01/06/18 06:30 Albumin 3.3 g/dL (3.0-4.8) 01/09/18 06:30 Albumin (PEP) 3.0 g/dL (3.8-4.8) L 01/06/18 06:30 Globulin 3.0 gm/dL 01/09/18 06:30 Albumin/Globulin Ratio 1.1 (1.1-1.8) 01/09/18 06:30 Yezvf-5-Tzetzpfvc 0.4 g/dL (0.2-0.3) H 01/06/18 06:30 Huzit-4-Vjuhqbbyd 0.8 g/dL (0.5-0.9) 01/06/18 06:30 Thmz-3-Wejpjnop 0.3 g/dL (0.4-0.6) L 01/06/18 06:30 Rcpn-8-Rgjcbkkt 0.3 g/dL (0.2-0.5) 01/06/18 06:30 Gamma Globulins 1.0 g/dL (0.8-1.7) 01/06/18 06:30 Abnorm Protein Band 1 TEST NOT PERFORMED 01/06/18 06:30 Abnorm Protein Band 2 TEST NOT PERFORMED 01/06/18 06:30 Abnorm Protein Band 3 TEST NOT PERFORMED 01/06/18 06:30 Triglycerides 120 mg/dL (35-160) 01/05/18 07:30 Cholesterol 121 mg/dL (130-200) L 01/05/18 07:30 LDL Cholesterol Direct 64 mg/dL (0-129) 01/05/18 07:30 HDL Cholesterol 29 mg/dL (29-60) 01/05/18 07:30 Lipase 75 U/L (23-300) 01/04/18 18:00 Vitamin B12 382 pg/mL (239-931) 01/05/18 07:30 25-OH Vitamin D Total 20.8 NG/ML (30.0-100.0) L 01/06/18 06:30 Folate 11.2 ng/mL 01/05/18 07:30 Procalcitonin 0.44 NG/ML (0.19-0.49) 01/06/18 06:30 TSH 3rd Generation 0.19 mIU/mL (0.46-4.68) L 01/05/18 07:30 PTH w/Ion &Tot Calcium 156 pg/mL (14-64) H 01/06/18 06:30 Urine Color Yellow (YELLOW) 01/09/18 06:10 Urine Appearance Clear (CLEAR) 01/09/18 06:10 Urine pH 5.5 (4.7-8.0) 01/09/18 06:10 Ur Specific [place] 1.020 (1.005-1.035) 01/09/18 06:10 Urine Protein Trace mg/dL (<30 mg/dL) H 01/09/18 06:10 Urine Glucose (UA) Negative mg/dL (NEGATIVE) 01/09/18 06:10 Urine Ketones 15 mg/dL (NEGATIVE) H 01/09/18 06:10 Urine Blood Moderate (NEGATIVE) H 01/09/18 06:10 Urine Nitrate Negative (NEGATIVE) 01/09/18 06:10 Urine Bilirubin Negative (NEGATIVE) 01/09/18 06:10 Urine Urobilinogen 1.0 E.U./dL (<1 E.U./dL) H 01/09/18 06:10 Ur Leukocyte Esterase Negative Clair/uL (NEGATIVE) 01/09/18 06:10 Urine RBC 15 - 20 /hpf (0-2) 01/09/18 06:10 Urine WBC 1 - 3 /hpf (0-6) 01/09/18 06:10 Ur Epithelial Cells None /hpf (0-5) 01/09/18 06:10 Amorphous Sediment Few 01/09/18 06:10 Urine Bacteria Mod (NEG) 01/09/18 06:10 Ur Random Creatinine 50 mg/dL 01/06/18 18:46 U Random Total Protein 31 mg/L 01/06/18 18:46 Ur Random Sodium 60 meq/L 01/05/18 18:57 Ur Random Urea Nitrogn 470 mg/dL 01/06/18 18:46 Urine Microalbumin 102.1 mg/L (0.0-16.6) H 01/06/18 18:47 NAIMA & SPEP Interp See note 01/06/18 06:30 Complement C3 110.0 mg/dL (88.0-165.0) 01/05/18 09:00 Complement C4 19.3 mg/dL (14.0-44.0) 01/05/18 09:00 Sealy/Lambda Light Chain (()) 01/06/18 06:30 Free Sealy Light Chains 62.6 mg/L (3.3-19.4) H 01/06/18 06:30 Free Lambda Light Chain 42.1 mg/L (5.7-26.3) H 01/06/18 06:30 Free Sealy/Lambda Ratio 1.49 (0.26-1.65) 01/06/18 06:30 Hepatitis C Antibody Reactive (NEGATIVE) 01/06/18 06:30 - Hospital Course Hospital Course: 72 yr male w/ history of CVA (L sided weakness), residual amnesia, short term memory loss, HTN, wheelchair bound, & CABG. Admitted in [facility] for decreased PO intake, dizziness, lightheadness, weakness, anuria x 2 days. Pt's brother Daivd provided history as pt is poor historian. Pt tested positive for Klebsiella in urine and successfully treat w/ course of Levaquin. Pt was rehydrated and electrolytes were corrected. Pt needs to f/u with journeyman machinist and pulmonogist. Pt cleared for discharge to receive PT/OT services. Reviewed: CXR = WNL US bladder = julio catheter present US abd = b/l nephrolithiasis, fatty liver, gallbladder sludge CXR = WNL - Date & Time of H&P Date of H&P: 01/09/18 Time of H&P: 11:00 Discharge Exam - Head Exam Head Exam: ATRAUMATIC, NORMOCEPHALIC - Eye Exam Eye Exam: EOMI, Normal appearance, PERRL Pupil Exam: NORMAL ACCOMODATION, PERRL - ENT Exam ENT Exam: Mucous Membranes Moist - Neck Exam Neck exam: Full Rom - Respiratory Exam Respiratory Exam: Wheezes - Cardiovascular Exam Cardiovascular Exam: REGULAR RHYTHM, +S1, +S2 - GI/Abdominal Exam GI & Abdominal Exam: Normal Bowel Sounds, Soft - Extremities Exam Additional comments: L sided weakness - Back Exam Back exam: NORMAL INSPECTION - Neurological Exam Neurological exam: Alert, Oriented x3 - Psychiatric Exam Psychiatric exam: Flat Affect, Normal Mood - Skin Skin Exam: Dry, Intact, Normal Color, Warm Discharge Plan - Follow Up Plan Condition: FAIR Disposition: TRANSF TO SNF Instructions: Dehydration (DC), Dehydration (GEN), Acute Kidney Injury (DC), Renal Failure Diet (DC), Hypokalemia (DC), Hypokalemia (GEN), Hypertension (DC) , Hypertension (GEN) Additional Instructions: Discharged to TCU. <Marina Weir - Last Filed: 01/10/18 10:53> Provider - Provider Date of Admission: 01/05/18 14:25 Attending physician: Marina Weir MD [facility] Course - Lab Results Lab Results: Most Recent Lab Values WBC 7.5 10^3/ul (4.5-11.0) D 01/07/18 06:30 RBC 3.90 10^6/uL (3.5-6.1) 01/07/18 06:30 Hgb 11.9 g/dL (14.0-18.0) L 01/07/18 06:30 Hct 33.5 % (42.0-52.0) L 01/07/18 06:30 MCV 85.9 fl (80.0-105.0) 01/07/18 06:30 MCH 30.5 pg (25.0-35.0) 01/07/18 06:30 MCHC 35.5 g/dl (31.0-37.0) 01/07/18 06:30 RDW 13.2 % (11.5-14.5) 01/07/18 06:30 Plt Count 144 10^3/uL (120.0-450.0) 01/07/18 06:30 MPV 11.4 fl (7.0-11.0) H 01/07/18 06:30 Gran % 78.8 % (50.0-68.0) H 01/06/18 07:34 Lymph % (Auto) 12.9 % (22.0-35.0) L 01/06/18 07:34 [place] % (Auto) 7.9 % (1.0-6.0) H 01/06/18 07:34 Eos % (Auto) 0.3 % (1.5-5.0) L 01/06/18 07:34 Baso % (Auto) 0.1 % (0.0-3.0) 01/06/18 07:34 Gran # 7.77 (1.4-6.5) H 01/06/18 07:34 Lymph # (Auto) 1.3 (1.2-3.4) 01/06/18 07:34 [place] # (Auto) 0.8 (0.1-0.6) H 01/06/18 07:34 Eos # (Auto) 0.0 (0.0-0.7) 01/06/18 07:34 Baso # (Auto) 0.01 K/mm3 (0.0-2.0) 01/06/18 07:34 Sodium 133 mmol/L (132-148) 01/09/18 06:30 Potassium 3.9 mmol/L (3.6-5.0) 01/09/18 06:30 Chloride 101 mmol/L (98-107) 01/09/18 06:30 Carbon Dioxide 18 mmol/L (21-33) L 01/09/18 06:30 Anion Gap 17 (10-20) 01/09/18 06:30 BUN 38 mg/dL (7-21) H 01/09/18 06:30 Creatinine 2.3 mg/dl (0.8-1.5) H 01/09/18 06:30 Est GFR ( Amer) 34 01/09/18 06:30 Est GFR (Non-Af Amer) 28 01/09/18 06:30 POC Glucose (mg/dL) 115 mg/dL (65-110) H 01/10/18 06:00 Random Glucose 130 mg/dL (70-110) H 01/09/18 06:30 Hemoglobin A1c 8.4 % (4.2-6.5) H 01/05/18 07:30 Calcium 7.8 mg/dL (8.4-10.5) L 01/09/18 06:30 Phosphorus 3.6 mg/dL (2.5-4.5) 01/06/18 07:34 Magnesium 1.4 mg/dL (1.7-2.2) L 01/06/18 07:34 Iron 22 ug/dL (45-180) L 01/05/18 07:30 TIBC 127 ug/dL (261-462) L 01/05/18 07:30 % Saturation 18 % (20-55) L 01/05/18 07:30 Total Bilirubin 1.2 mg/dL (0.2-1.3) 01/09/18 06:30 AST 37 U/L (17-59) 01/09/18 06:30 ALT 39 U/L (7-56) 01/09/18 06:30 Alkaline Phosphatase 40 U/L (38-126) 01/09/18 06:30 Total Protein 6.3 g/dL (5.8-8.3) 01/09/18 06:30 Total Protein (PEP) 5.8 g/dL (6.1-8.1) L 01/06/18 06:30 Albumin 3.3 g/dL (3.0-4.8) 01/09/18 06:30 Albumin (PEP) 3.0 g/dL (3.8-4.8) L 01/06/18 06:30 Globulin 3.0 gm/dL 01/09/18 06:30 Albumin/Globulin Ratio 1.1 (1.1-1.8) 01/09/18 06:30 Xwfpm-5-Avloubkgr 0.4 g/dL (0.2-0.3) H 01/06/18 06:30 Admte-9-Ccqjmjjzm 0.8 g/dL (0.5-0.9) 01/06/18 06:30 Kxzz-3-Ybavywlz 0.3 g/dL (0.4-0.6) L 01/06/18 06:30 Rnbd-0-Exqbjzlw 0.3 g/dL (0.2-0.5) 01/06/18 06:30 Gamma Globulins 1.0 g/dL (0.8-1.7) 01/06/18 06:30 Abnorm Protein Band 1 TEST NOT PERFORMED 01/06/18 06:30 Abnorm Protein Band 2 TEST NOT PERFORMED 01/06/18 06:30 Abnorm Protein Band 3 TEST NOT PERFORMED 01/06/18 06:30 Triglycerides 120 mg/dL (35-160) 01/05/18 07:30 Cholesterol 121 mg/dL (130-200) L 01/05/18 07:30 LDL Cholesterol Direct 64 mg/dL (0-129) 01/05/18 07:30 HDL Cholesterol 29 mg/dL (29-60) 01/05/18 07:30 Lipase 75 U/L (23-300) 01/04/18 18:00 Vitamin B12 382 pg/mL (239-931) 01/05/18 07:30 25-OH Vitamin D Total 20.8 NG/ML (30.0-100.0) L 01/06/18 06:30 Folate 11.2 ng/mL 01/05/18 07:30 Procalcitonin 0.44 NG/ML (0.19-0.49) 01/06/18 06:30 TSH 3rd Generation 0.19 mIU/mL (0.46-4.68) L 01/05/18 07:30 Calcium (PTH Intact) 7.6 mg/dL (8.6-10.3) L 01/06/18 06:30 PTH w/Ion &Tot Calcium 156 pg/mL (14-64) H 01/06/18 06:30 Urine Color Yellow (YELLOW) 01/09/18 06:10 Urine Appearance Clear (CLEAR) 01/09/18 06:10 Urine pH 5.5 (4.7-8.0) 01/09/18 06:10 Ur Specific [place] 1.020 (1.005-1.035) 01/09/18 06:10 Urine Protein Trace mg/dL (<30 mg/dL) H 01/09/18 06:10 Urine Glucose (UA) Negative mg/dL (NEGATIVE) 01/09/18 06:10 Urine Ketones 15 mg/dL (NEGATIVE) H 01/09/18 06:10 Urine Blood Moderate (NEGATIVE) H 01/09/18 06:10 Urine Nitrate Negative (NEGATIVE) 01/09/18 06:10 Urine Bilirubin Negative (NEGATIVE) 01/09/18 06:10 Urine Urobilinogen 1.0 E.U./dL (<1 E.U./dL) H 01/09/18 06:10 Ur Leukocyte Esterase Negative Clair/uL (NEGATIVE) 01/09/18 06:10 Urine RBC 15 - 20 /hpf (0-2) 01/09/18 06:10 Urine WBC 1 - 3 /hpf (0-6) 01/09/18 06:10 Ur Epithelial Cells None /hpf (0-5) 01/09/18 06:10 Amorphous Sediment Few 01/09/18 06:10 Urine Bacteria Mod (NEG) 01/09/18 06:10 Ur Random Creatinine 50 mg/dL 01/06/18 18:46 U Random Total Protein 31 mg/L 01/06/18 18:46 Ur Random Sodium 60 meq/L 01/05/18 18:57 Ur Random Urea Nitrogn 470 mg/dL 01/06/18 18:46 Urine Microalbumin 102.1 mg/L (0.0-16.6) H 01/06/18 18:47 NAIMA & SPEP Interp See note 01/06/18 06:30 Serum Immunofixation Not detected (Not Detected) 01/06/18 06:30 Proteinase 3 (PR3) <1.0 AI (<1.0) 01/06/18 05:00 Myeloperoxidase Ab <1.0 AI (<1.0) 01/06/18 05:00 Complement C3 110.0 mg/dL (88.0-165.0) 01/05/18 09:00 Complement C4 19.3 mg/dL (14.0-44.0) 01/05/18 09:00 Sealy/Lambda Light Chain (()) 01/06/18 06:30 Free [place] Light Chains 62.6 mg/L (3.3-19.4) H 01/06/18 06:30 Free Lambda Light Chain 42.1 mg/L (5.7-26.3) H 01/06/18 06:30 Free [place]/Lambda Ratio 1.49 (0.26-1.65) 01/06/18 06:30 Hepatitis C Antibody Reactive (NEGATIVE) 01/06/18 06:30 - Hospital Course Hospital Course: pt is seen and examined at bed side , looking comfortable agreed all above , dc to tcu , will f/u and cont. same treatment in tcu
--- NOTE | 2018-01-09 19:22 | CP.PCM.PN ---
Subjective - Date & Time of Evaluation Date of Evaluation: 01/09/18 Time of Evaluation: 11:00 - Subjective Subjective: Increased shortness of breath, had to be given breathing treatments; tolerating diet; Objective - Vital Signs/Intake and Output Vital Signs (last 24 hours): Temp Pulse Resp BP Pulse Ox 98.8 F 106 H 20 133/70 97 01/09/18 11:30 01/09/18 09:04 01/09/18 08:04 01/09/18 09:06 01/09/18 08:04 Intake and Output: 01/09/18 01/10/18 18:59 06:59 Intake Total 1000 Output Total 1400 Balance -400 - Labs Labs: 01/07/18 06:30 01/09/18 06:30 - Constitutional Appears: Non-toxic, No Acute Distress - Eye Exam Eye Exam: absent: Scleral icterus - ENT Exam ENT Exam: Mucous Membranes Moist - Respiratory Exam Respiratory Exam: Prolonged Expiratory Phase, Wheezes. absent: Respiratory Distress - Cardiovascular Exam Cardiovascular Exam: RRR, +S1, +S2 - GI/Abdominal Exam GI & Abdominal Exam: Soft. absent: Distended, Tenderness - Extremities Exam Additional comments: no leg edema; - Neurological Exam Neurological Exam: Alert, Awake - Psychiatric Exam Psychiatric exam: absent: Agitated - Skin Skin Exam: Warm. absent: Cyanosis Assessment and Plan (1) Acute renal failure Assessment & Plan: ATN, resolving; polyuria has stabilized; relatively stable electrolyte and volume status; decreasing IVF to 1/2NS at 60 cc/hr; Status: Acute (2) Electrolyte abnormality Assessment & Plan: Moderate metabolic acidosis, should improve with improving renal function; mildly low Ca level (corrected for albumin); PTH elevated, started on ergocalciferol, continue; Status: Acute (3) Hepatitis C Status: Chronic (4) Hematuria Assessment & Plan: Sending urine cytology to assess for urologic malignancy; Status: Acute (5) HTN (hypertension) Assessment & Plan: Started on metoprolol but may be contributing to bronchospasm, will discontinue ; amlodipine dose increased to 10 mg daily, continue; Status: Acute (6) Diabetes Status: Acute
[2018-01-09 22:11] LABS: PROTEINASE-3 <1.0 AI (<1.0)
[2018-01-11 02:54] LABS: ANCA SCREEN NEGATIVE (NEGATIVE)
== END 2018-01-09 15:45 | DRG 683 ==
LOC: ED 16:33 → ERH 20:50 → 5RNO 22:16 → OBSVTOIN 01-05 14:25
PROVIDERS: ADMIT Internal Medicine; ATTEND Internal Medicine
PROC: 0T9B70Z Drainage of Bladder with Drainage Device, Via Natural or Artificial Opening (ICD-10-PCS; principal; 2018-01-04)
DX: N17.0 Acute kidney failure with tubular necrosis (principal); I69.354 Hemiplegia and hemiparesis following cerebral infarction affecting left non-dominant side; E11.22 Type 2 diabetes mellitus with diabetic chronic kidney disease; E87.2 Acidosis; E11.65 Type 2 diabetes mellitus with hyperglycemia; E87.1 Hypo-osmolality and hyponatremia; N39.0 Urinary tract infection, site not specified; E86.0 Dehydration; E83.42 Hypomagnesemia; E83.51 Hypocalcemia; E87.6 Hypokalemia; I12.9 Hypertensive chronic kidney disease with stage 1 through stage 4 chronic kidney disease, or unspecified chronic kidney disease; N18.9 Chronic kidney disease, unspecified; D50.9 Iron deficiency anemia, unspecified; B96.1 Klebsiella pneumoniae [K. pneumoniae] as the cause of diseases classified elsewhere; B19.20 Unspecified viral hepatitis C without hepatic coma; I25.10 Atherosclerotic heart disease of native coronary artery without angina pectoris; R31.9 Hematuria, unspecified; R41.3 Other amnesia; Z95.1 Presence of aortocoronary bypass graft; Z99.3 Dependence on wheelchair; Z88.0 Allergy status to penicillin

== ENCOUNTER 2018-01-09 15:45 | Inpatient (IN) | payer OTHER ==
[2018-01-09 16:49] VITALS: BMI 25.5
[2018-01-09] MEDS ORDERED: levoFLOXacin 500 mg in D5W 500 MG/100 ML BAG IVPB SCH ×2 (17:00→22:00)
[2018-01-09] MEDS: Ergocalciferol 50,000 Intl Units Cap PO SCH (17:55)
[2018-01-09] MEDS: Sodium Chloride 0.45% 1,000 ML IV SCH (18:39)
[2018-01-09] MEDS: Albuterol-Ipratrop 3 mg / 0.5 (3 ml) UD IH SCH (21:48)
[2018-01-09] MEDS: Insulin Reg-LOW-Coverage SC SCH (22:09)
--- NOTE | 2018-01-09 23:28 | CP.PCM.CON ---
History of Present Illness - History of Present Illness History of Present Illness: Infectious Disease Follow Up: January 09, 2018 72 yo male found be family to be confused with poor oral intake, dizziness, weakness, lightheadedness, and decreased urination. Found to have acute renal failure in ER. The patient is a extremely poor historian. The patient is also wheelchair bound. Changes started one week ago. Medical history includes HTN, CVA with residual left sided weakness, Hepatitis C, and wheelchair bound. Urine cultures with gram negative shasta growth identified as Klebsiella. Limited antibiotic choices due to PCN allergies. Currently on Levaquin for antibiotic coverage. He is more awake and alert. He is eating better and answers questions more consistently. PMHx: HTN, CVA with residual left sided weakness, Hepatitis C, and wheelchair bound PSHx: Polyp removal Allergies: PCN Social Hx: Previous IVDA Ex-smoker Unclear EtOH history Active Medications Acetaminophen (Tylenol 325mg Tab) 650 mg PO Q4H PRN; Protocol PRN Reason: Pain, moderate (4-7) Albuterol/Ipratropium (Duoneb 3 Mg/0.5 Mg (3 Ml) Ud) 3 ml IH [id number] TERRY PRN Reason: Protocol Last Admin: 01/09/18 21:48 Dose: 3 ml Amlodipine Besylate (Norvasc) 10 mg PO DAILY TERRY PRN Reason: Protocol Aspirin (Ecotrin) 81 mg PO 1000 TERRY PRN Reason: Protocol Ergocalciferol (Drisdol 50,000 Intl Units Cap) 1 cap PO Q7D TERRY PRN Reason: Protocol Last Admin: 01/09/18 17:55 Dose: Not Given Ergocalciferol (Drisdol 50,000 Intl Units Cap) 1 cap PO Q7D TERRY PRN Reason: Protocol Famotidine (Pepcid) 20 mg PO HS TERRY PRN Reason: Protocol Last Admin: 01/09/18 22:10 Dose: 20 mg Hydralazine HCl (Apresoline) 25 mg PO BID TERRY PRN Reason: Protocol Last Admin: 01/09/18 18:40 Dose: 25 mg Sodium Chloride (Sodium Chloride 0.45%) 1,000 mls @ 60 mls/hr IV .[id number] TERRY PRN Reason: Protocol Last Admin: 01/09/18 18:39 Dose: 60 mls/hr Levofloxacin/Dextrose (Levaquin 500mg) 500 mg in 100 mls @ 100 mls/hr IVPB Q48H TERRY PRN Reason: Protocol Last Admin: 01/09/18 22:09 Dose: 100 mls/hr Insulin Human Regular (Humulin R Low) 0 units SC ACHS TERRY PRN Reason: Protocol Last Admin: 01/09/18 22:09 Dose: Not Given Ondansetron HCl (Zofran Inj) 4 mg IVP Q6H PRN; Protocol PRN Reason: Nausea/Vomiting Family Hx: None given ROS: Unable to Obtain from the patient Past Patient History - Past Social History Smoking Status: Never Smoked - CARDIAC Hx Hypertension: Yes - PULMONARY Hx Respiratory Disorders: No - NEUROLOGICAL HX Cerebrovascular Accident: Yes (L side weakness) - MUSCULOSKELETAL/RHEUMATOLOGICAL Hx Falls: No - GENITOURINARY/GYNECOLOGICAL Hx Genitourinary Disorders: No Hx Reproductive Disorders: No - PSYCHIATRIC Hx Substance Use: No - SURGICAL HISTORY Hx Surgeries: Yes - ANESTHESIA Hx Anesthesia: Yes Hx Anesthesia Reactions: No Hx Malignant Hyperthermia: No Meds Allergies/Adverse Reactions: Allergies Allergy/AdvReac Type Severity Reaction Status Date / Time Penicillins Allergy ANAPHYLAXIS Verified 01/04/18 16:35 - Medications Medications: Current Medications Acetaminophen (Tylenol 325mg Tab) 650 mg PO Q4H PRN; Protocol PRN Reason: Pain, moderate (4-7) Albuterol/Ipratropium (Duoneb 3 Mg/0.5 Mg (3 Ml) Ud) 3 ml IH [id number] TERRY PRN Reason: Protocol Last Admin: 01/09/18 21:48 Dose: 3 ml Amlodipine Besylate (Norvasc) 10 mg PO DAILY TERRY PRN Reason: Protocol Aspirin (Ecotrin) 81 mg PO 1000 TERRY PRN Reason: Protocol Ergocalciferol (Drisdol 50,000 Intl Units Cap) 1 cap PO Q7D TERRY PRN Reason: Protocol Last Admin: 01/09/18 17:55 Dose: Not Given Ergocalciferol (Drisdol 50,000 Intl Units Cap) 1 cap PO Q7D TERRY PRN Reason: Protocol Famotidine (Pepcid) 20 mg PO HS TERRY PRN Reason: Protocol Last Admin: 01/09/18 22:10 Dose: 20 mg Hydralazine HCl (Apresoline) 25 mg PO BID TERRY PRN Reason: Protocol Last Admin: 01/09/18 18:40 Dose: 25 mg Sodium Chloride (Sodium Chloride 0.45%) 1,000 mls @ 60 mls/hr IV .[id number] TERRY PRN Reason: Protocol Last Admin: 01/09/18 18:39 Dose: 60 mls/hr Levofloxacin/Dextrose (Levaquin 500mg) 500 mg in 100 mls @ 100 mls/hr IVPB Q48H TERRY PRN Reason: Protocol Last Admin: 01/09/18 22:09 Dose: 100 mls/hr Insulin Human Regular (Humulin R Low) 0 units SC ACHS TERRY PRN Reason: Protocol Last Admin: 01/09/18 22:09 Dose: Not Given Ondansetron HCl (Zofran Inj) 4 mg IVP Q6H PRN; Protocol PRN Reason: Nausea/Vomiting Physical Exam - Constitutional Appears: Non-toxic, No Acute Distress, Chronically Ill - Head Exam Head Exam: ATRAUMATIC, NORMOCEPHALIC - Eye Exam Eye Exam: EOMI, PERRL Pupil Exam: NORMAL ACCOMODATION, PERRL - ENT Exam ENT Exam: Mucous Membranes Moist, Normal External Ear Exam, TM's Normal Bilaterally - Neck Exam Neck exam: Positive for: Full Rom, Normal Inspection - Respiratory Exam Respiratory Exam: Clear to Auscultation Bilateral, NORMAL BREATHING PATTERN. absent: Rales, Rhonchi, Wheezes - Cardiovascular Exam Cardiovascular Exam: REGULAR RHYTHM, RRR, +S1, +S2 - GI/Abdominal Exam GI & Abdominal Exam: Normal Bowel Sounds, Soft. absent: Distended, Tenderness - Extremities Exam Extremities exam: Negative for: joint swelling, pedal edema - Neurological Exam Neurological exam: Alert Additional comments: AAO x 2-3 left sided weakness. - Psychiatric Exam Psychiatric exam: Normal Affect, Normal Mood - Skin Skin Exam: Intact, Normal Color Results - Vital Signs Recent Vital Signs: Last Vital Signs Temp 98.8 F 01/09/18 18:11 Pulse 94 H 01/09/18 18:40 Resp 20 01/09/18 18:11 BP 147/74 01/09/18 18:40 Pulse Ox 97 01/09/18 17:46 Assessment & Plan - Assessment and Plan (Free Text) Assessment: 72 yo male who appears calm at this time with lethargy, decreased urinary output, and findings of acute renal failure on hospitalization. The patient with mild leukocytosis. Afebrile at this time. Chest X-ray with no active disease. Cannot rule out UTI as of yet. Was on Aztreonam due to PCN Allergies. Supportive care. Gram negative rods in urine cultures identified as Klebsiella sensitive to Fluoroquinolones. Pimentel cultures. Monitor fever trend and WBC trend. Continue on Levaquin for 5-7 days in total. Can consider oral completion after 3 days of IV Levaquin. Thank you for allowing me to participate in the care of the patient, we will follow with you.
[2018-01-10] MEDS: Albuterol-Ipratrop 3 mg / 0.5 (3 ml) UD IH SCH ×4 (01:32→21:19)
--- NOTE | 2018-01-10 06:47 | CON ---
DATE: PULMONARY CONSULTATION REFERRING PHYSICIAN: Dr. Weir. REASON FOR CONSULTATION: Cough, shortness of breath, may have sleep apnea syndrome. HISTORY OF PRESENT ILLNESS: This is a 72-year-old gentleman known to me from acute side of the hospital, has a history of stroke; renal failure; short of breath; history of cognitive deficits; hypertension; according to family, been having diarrhea and have a dehydration, brought into emergency room and found to be acute renal failure necessitated with fluid, admitted to the floor, also had some cough; bronchodilator was started, suspected sleep apnea syndrome and CPAP was ordered, presently admitted to TICU to continue care. PAST MEDICAL HISTORY: As per history present illness. Also have coronary artery disease, history of coronary bypass surgery. SOCIAL HISTORY: Former smoker, denying alcohol use. FAMILY HISTORY: No significant cardiopulmonary disease reported. ALLERGIES: NONE KNOWN. MEDICATIONS: He is on hydralazine 25 mg twice a day, vitamin D 50,000 units q. 7 days, DuoNeb q. 6 hours, Ecotrin 81 mg daily, insulin coverage, Levaquin 500 mg q. 48 hours, Norvasc 10 mg daily, Pepcid 20 mg daily, IV fluid half-normal saline 60 mL per hour, Tylenol p.r.n., Zofran p.r.n. basis. REVIEW OF SYSTEMS: No headache, no rhinitis. Does have a cough, gets short of breath. No nausea, no vomiting, no diarrhea, on and off mild abdominal pain. No dysuria. No leg pain or leg swelling. PHYSICAL EXAMINATION: GENERAL: Lying in the bed, no acute distress. VITAL SIGNS: Temperature 98, heart rate 94, respiratory is 20, blood pressure 147/74, pulse ox 97% on 2 liters nasal cannula. HEENT: Moist mucous membrane. Crowded airway. Mallampati score is IV. NECK: Supple. No JVD. LUNGS: Has a fair airflow with few rhonchi. HEART: S1, S2. ABDOMEN: Soft, nontender. No organomegaly. EXTREMITIES: There is no edema. NEUROLOGICALLY: Awake, alert, follow simple commands. LABORATORY DATA: Reviewed, shows hemoglobin 11.9, hematocrit 33.5, WBC 7.5, platelet is 144. Sodium 133, potassium 3.9, chloride 101, bicarbonate 18, BUN 38, creatinine 2.3, glucose 130, calcium is 7.8. Albumin is 3.3, AST 37, ALT 39, alk phos is 40. Urine culture has Klebsiella pneumoniae. Chest x-ray done today shows no evidence of any infiltrate or consolidation. IMPRESSION AND PLAN: Acute renal failure, urinary tract infection, history of cerebrovascular accident, hypertension, coronary artery disease, cholelithiasis, status post diarrhea. Pulmonary point of view, he is doing okay. Continue antibiotics, bronchodilator, keep head 45 degrees. Gastric prophylaxis, deep venous thrombosis prophylaxis. Continue intravenous fluids. Follow up electrolytes; may have to follow up ultrasound to assure the stability of gallbladder findings. Thank you and we will follow with you. Kevin Riojas MD
[2018-01-10] MEDS: Insulin Reg-LOW-Coverage SC SCH ×4 (07:13→22:07)
[2018-01-10] MEDS: levoFLOXacin 250 mg in D5W 250 MG/50 ML BAG IVPB SCH (10:35)
[2018-01-10] MEDS: Sodium Chloride 0.45% 1,000 ML IV SCH ×2 (10:36→13:43)
[2018-01-10 11:16] LABS: BASO # 0.02 K/mm3 (0.0-2.0); BASO % 0.5 % (0.0-3.0); EOS # 0.1 (0.0-0.7); EOS % 1.2 % (1.5-5.0); GRAN # 2.53 (1.4-6.5); GRAN % 60.6 % (50.0-68.0); HEMOGLOBIN 12.6 g/dL (14.0-18.0); LYMPH # 0.9 (1.2-3.4); LYMPH % 20.9 % (22.0-35.0); MEAN CELL VOLUME 85.8 fl (80.0-105.0); MEAN CORPUSCULAR HEMOGLOBIN 30.3 pg (25.0-35.0); MEAN CORPUSCULAR HGB CONC 35.3 g/dl (31.0-37.0); MEAN PLATELET VOLUME 11.1 fl (7.0-11.0); MONO # 0.7 (0.1-0.6); MONO % 16.8 % (1.0-6.0); RBC 4.16 10^6/uL (3.5-6.1); RED CELL DISTRIBUTION WIDTH 12.9 % (11.5-14.5); WHITE BLOOD COUNT 4.2 10^3/ul (4.5-11.0)
[2018-01-10 11:21] LABS: ALBUMIN 3.4 g/dL (3.0-4.8); CALCIUM 7.5 mg/dL (8.4-10.5); MAGNESIUM 1.2 mg/dL (1.7-2.2)
[2018-01-10] MEDS ORDERED: Magnesium Sulfate 2 GM in Sodium Chloride 0.9% 100 ML IVPB ONE (20:25)
[2018-01-10] MEDS ORDERED: Potassium Chloride 20 mEq ER Tab PO ONE (20:27)
--- NOTE | 2018-01-10 23:21 | CP.PCM.PN ---
Subjective - Date & Time of Evaluation Date of Evaluation: 01/10/18 Time of Evaluation: 22:15 - Subjective Subjective: Infectious Disease Follow Up: January 10, 2018 72 yo male found be family to be confused with poor oral intake, dizziness, weakness, lightheadedness, and decreased urination. Found to have acute renal failure in ER. The patient is a extremely poor historian. The patient is also wheelchair bound. Changes started one week ago. Medical history includes HTN, CVA with residual left sided weakness, Hepatitis C, and wheelchair bound. Urine cultures with gram negative shasta growth identified as Klebsiella. Limited antibiotic choices due to PCN allergies. Currently on Levaquin for antibiotic coverage. He is more awake and alert. He is eating better and answers questions more consistently. He has no complaints at this time. Objective - Vital Signs/Intake and Output Vital Signs (last 24 hours): Temp Pulse Resp BP Pulse Ox 99 F 71 18 136/82 95 01/10/18 11:45 01/10/18 17:45 01/10/18 11:45 01/10/18 17:45 01/10/18 11:45 - Medications Medications: Current Medications Acetaminophen (Tylenol 325mg Tab) 650 mg PO Q4H PRN; Protocol PRN Reason: Pain, moderate (4-7) Albuterol/Ipratropium (Duoneb 3 Mg/0.5 Mg (3 Ml) Ud) 3 ml IH [id number] TERRY PRN Reason: Protocol Last Admin: 01/10/18 21:19 Dose: Not Given Amlodipine Besylate (Norvasc) 10 mg PO DAILY TERRY PRN Reason: Protocol Last Admin: 01/10/18 10:35 Dose: 10 mg Aspirin (Ecotrin) 81 mg PO 0800 TERRY PRN Reason: Protocol Ergocalciferol (Drisdol 50,000 Intl Units Cap) 1 cap PO Q7D TERRY PRN Reason: Protocol Last Admin: 01/09/18 17:55 Dose: Not Given Ergocalciferol (Drisdol 50,000 Intl Units Cap) 1 cap PO Q7D TERRY PRN Reason: Protocol Famotidine (Pepcid) 20 mg PO HS TERRY PRN Reason: Protocol Last Admin: 01/10/18 22:47 Dose: 20 mg Hydralazine HCl (Apresoline) 25 mg PO BID TERRY PRN Reason: Protocol Last Admin: 01/10/18 17:45 Dose: 25 mg Sodium Chloride (Sodium Chloride 0.45%) 1,000 mls @ 60 mls/hr IV .[id number] TERRY PRN Reason: Protocol Last Admin: 01/10/18 13:43 Dose: 60 mls/hr Levofloxacin/Dextrose (Levaquin 250mg) 250 mg in 50 mls @ 100 mls/hr IVPB DAILY [facility] Last Admin: 01/10/18 10:35 Dose: 100 mls/hr Insulin Human Regular (Humulin R Low) 0 units SC ACHS TERRY PRN Reason: Protocol Last Admin: 01/10/18 22:07 Dose: Not Given Ondansetron HCl (Zofran Inj) 4 mg IVP Q6H PRN; Protocol PRN Reason: Nausea/Vomiting - Labs Labs: 01/10/18 11:00 01/10/18 11:00 - Constitutional Appears: Non-toxic, No Acute Distress, Chronically Ill - Head Exam Head Exam: ATRAUMATIC, NORMOCEPHALIC - Eye Exam Eye Exam: EOMI, PERRL Pupil Exam: NORMAL ACCOMODATION, PERRL - ENT Exam ENT Exam: Mucous Membranes Moist, Normal External Ear Exam, TM's Normal Bilaterally - Neck Exam Neck Exam: Full ROM, Normal Inspection - Respiratory Exam Respiratory Exam: Clear to Ausculation Bilateral, NORMAL BREATHING PATTERN. absent: Rales, Rhonchi, Wheezes - Cardiovascular Exam Cardiovascular Exam: REGULAR RHYTHM, RRR, +S1, +S2 - GI/Abdominal Exam GI & Abdominal Exam: Soft, Normal Bowel Sounds. absent: Distended, Tenderness - Extremities Exam Extremities Exam: absent: Joint Swelling, Pedal Edema - Neurological Exam Neurological Exam: Alert, Awake, CN II-XII Intact Additional comments: AAO x 2-3 left sided weakness. - Psychiatric Exam Psychiatric exam: Normal Affect, Normal Mood - Skin Skin Exam: Intact, Normal Color Assessment and Plan - Assessment and Plan (Free Text) Assessment: 72 yo male who appears calm at this time with lethargy, decreased urinary output, and findings of acute renal failure on hospitalization. The patient with mild leukocytosis. Afebrile at this time. Chest X-ray with no active disease. Cannot rule out UTI as of yet. Was on Aztreonam due to PCN Allergies. Supportive care. Gram negative rods in urine cultures identified as Klebsiella sensitive to Fluoroquinolones. Pimentel cultures. Monitor fever trend and WBC trend. Continue on Levaquin for 5-7 days in total. Can consider oral completion after 3 days of IV Levaquin. Thank you for allowing me to participate in the care of the patient, we will follow with you.
[2018-01-11] MEDS: Albuterol-Ipratrop 3 mg / 0.5 (3 ml) UD IH SCH ×4 (02:46→21:13)
--- NOTE | 2018-01-11 02:49 | PN ---
DATE: 01/10/2018 SUBJECTIVE: He is lying in the bed at 45 degrees. No . He still has some cough. No sputum production. No nausea, vomiting, diarrhea, leg pain or leg swelling. OBJECTIVE: GENERAL: In no acute distress. VITAL SIGNS: Temperature is 99, heart rate is 94, respiratory rate is 18, blood pressure 146/76, pulse of 95% room air. HEENT: Moist mucous membrane. Crowded airway. Mallampati score is 4. NECK: Supple. No JVD. LUNGS: Fair airflow with rhonchi. HEART: S1, S2. ABDOMEN: Soft, nontender, no organomegaly. EXTREMITIES: No edema. NEUROLOGIC: Awake and alert, follows simple command. MEDICATIONS: He is on hydralazine 25 mg twice a day, vitamin D 50,000 units q. 7 days, dual neb q.6h., Ecotrin 81 mg daily, insulin coverage, Levaquin 250 mg daily, Norvasc 10 mg daily, Pepcid 20 mg daily, IV fluid half-normal saline 60 mL per hour, Tylenol p.r.n., Zofran on a p.r.n. basis. LABORATORY DATA: Shows hemoglobin 12.6, hematocrit 35.7, WBC 4.2, platelet is 171. Sodium 133, potassium 3.4, chloride 100, bicarbonate 20, BUN 29, creatinine 1.6, glucose 166, calcium 7.5, phosphorus 3.1, magnesium 1.2, AST 52, ALT 49, alk phos is 39. Albumin 3.4. IMPRESSION AND PLAN: Acute renal failure, urinary tract infection, history of cerebrovascular accident, hypertension, coronary artery disease, cholelithiasis, status post diarrhea, may have sleep apnea syndrome. Pulmonary point of doing okay. Keep head at 45 degrees. Antibiotics. Gastric prophylaxis. Continue intravenous fluids. Follow up electrolytes. Aspiration precaution. Fall precaution. Thank you and we will follow with you. Kevin Riojas MD
[2018-01-11] MEDS: Insulin Reg-LOW-Coverage SC SCH ×4 (06:37→21:56)
--- NOTE | 2018-01-11 06:46 | CON ---
DATE: NEPHROLOGY CONSULTATION LOCATION: [facility]. HISTORY OF PRESENT ILLNESS: A 72-year-old male with past medical history of CVA with residual left-sided hemiplegia, short-term memory loss, hypertension, hepatitis C, presented initially to ED with complaints of dizziness, lightheadedness and weakness along with decreased p.o. intake; found to be in acute renal failure; Nephrology being consulted for the same. Patient's hospital course was such that he initially did not respond to 3 liters of normal saline boluses; however, within 36 hours after presentation, urine output started to improve and patient entered polyuric phase of recovery; the patient was placed on standing IV fluids in order to prevent volume depletion; renal function has continued to improve daily. Patient, otherwise, had been having poor appetite; reports eating food brought by family members today; otherwise, denies any shortness of breath or chest pain (had developed dyspnea during this admission). PAST MEDICAL HISTORY: As above. Hep C was untreated. PAST SURGICAL HISTORY: Status post polyp removal many years ago. SOCIAL HISTORY: Previous IVDA, previous smoker. FAMILY HISTORY: Significant for cancer. REVIEW OF SYSTEMS: CONSTITUTIONAL: Decreased appetite. HEENT: No visual changes reported. No difficulty swallowing reported by the patient. RESPIRATORY: Has been having bronchospasm and shortness of breath despite patient is saying that he is not short of breath. CARDIOVASCULAR: Denies any chest pain or palpitations. GASTROINTESTINAL: Denies any vomiting or nausea. GENITOURINARY: Polyuria has been improving. MUSCULOSKELETAL: Denies any aches or pains. PSYCHIATRIC: Slow to respond to questions. NEUROLOGIC: Has residual left arm and leg weakness. PHYSICAL EXAMINATION: VITAL SIGNS: Blood pressure this evening 136/82, heart rate 71. Rest of vitals from this morning, respirations 18, temperature 99.0, O2 sat 95%. GENERAL: No distress. Able to converse coherently. HEENT: Moist mucous membranes. Nonicteric. No cervical lymphadenopathy. No elevated JVD. RESPIRATORY: Bilateral diffuse expiratory wheezes present. No obvious rales or rhonchi. CARDIOVASCULAR: Heart sounds muffled GASTROINTESTINAL: Abdomen soft, nontender, nondistended. GENITOURINARY: Andrade in place. No bladder distention. EXTREMITIES: Mild leg edema. SKIN: Warm. No cyanosis. PSYCHIATRIC: Slow to answer questions. LABORATORY DATA: From this morning, CBC: WBC 4.2, hemoglobin 12.6, hematocrit 35.7, platelets 171. Chemistry panel: Sodium 133; potassium 3.4; chloride 100; bicarb 20; BUN 29; creatinine 1.6, decreased from 2.3 yesterday; glucose 168; calcium 7.5; phosphorous 3.1; magnesium 1.2; albumin 3.4. ASSESSMENT AND PLAN: 1. Acute renal failure, acute tubular necrosis, in the setting of likely volume depletion; currently with ongoing recovery of renal function; urine output appears to have stabilized; patient with mild metabolic acidosis, which is overall improved; also with mild hypokalemia, but profound hypomagnesemia. Continuing with IV fluids with half normal saline at 60 mL/hour. Supplementing potassium chloride 20 mEq. Supplementing magnesium sulfate IV 2 g to be run over 2 hours (should avoid running IV mag faster to avoid renal wasting of it). 2. Hypertension. Blood pressure is better controlled, currently on amlodipine 10 mg daily and started on hydralazine 25 mg b.i.d. last night. Continue the same. Should avoid beta blockers for now in the setting of bronchospasm. 3. Urinary tract infection, Klebsiella pneumoniae growing, which is extended-spectrum beta-lactamase negative, currently on Levaquin. No renal dose adjustment needed. 4. Hypocalcemia, relatively mild. Parathyroid hormone elevated, but this was in the setting of renal failure; should repeat once renal function has stabilized. Continue ergocalciferol 50,000 units weekly for a low 25-hydroxy vitamin D level. 5. Hematuria, still with significant number of rbc's on urinalysis although improved; not suspecting glomerular origin; patient has no significant proteinuria to suggest glomerular disease; urine cytology previously ordered, but not yet collected. We will reorder. 6. Diabetes, newly diagnosed; patient currently on coverage only; can consider starting p.o. meds as renal function is much improved. Thank you for this referral. We will be following up closely. Daniel Headley MD
[2018-01-11] MEDS: Sodium Chloride 0.45% 1,000 ML IV SCH (09:57)
[2018-01-11] MEDS: levoFLOXacin 250 mg in D5W 250 MG/50 ML BAG IVPB SCH (10:37)
--- NOTE | 2018-01-11 10:43 | HP ---
CHIEF COMPLAINT: Coughing, shortness of breath, fatigue, and tiredness. HISTORY OF PRESENT ILLNESS: Mr. Humberto London is a 72-year-old male with past medical history of stroke, renal failure, shortness of breath, history of cognitive deficit, and hypertension. According to the family, the patient was having diarrhea, had dehydration, fatigue, tiredness, and brought to the emergency room and found to have acute renal failure. The plan was that may be the patient will need dialysis. Nephrology consult was called, but after hydration, kidney function improved. The patient got treatment in the medical floor, then transferred to TCU on 01/09/2018 for deconditioning and continuation of treatment with antibiotics. The patient was seen in the TCU, feeling better. PAST MEDICAL HISTORY: As above, coronary artery disease with history of coronary artery bypass, stroke, and renal insufficiency. SOCIAL HISTORY: Former smoker. Denies alcohol abuse and substance abuse. FAMILY HISTORY: Father and mother, noncontributory. ALLERGIES: THE PATIENT IS NOT ALLERGIC TO ANY MEDICATIONS. HOME MEDICATIONS: Hydralazine, vitamin D, DuoNeb, Ecotrin, insulin, Levaquin, Norvasc, Pepcid, NS, Tylenol, and Zofran. REVIEW OF SYSTEMS: The patient is examined at the bedside, looking comfortable. No nausea, vomiting, or diarrhea. No hematuria or hematochezia. No swelling of the legs. No chest pain. No palpitation. No headache. No dizziness. No fever. No chills. PHYSICAL EXAMINATION VITAL SIGNS: Temperature 98, heart rate 94, respiratory rate 20, blood pressure 140/74, and pulse oximetry 97% on 2 liters nasal cannula. HEENT: Head: Normocephalic, atraumatic. Eyes: PERRLA. Extraocular movements intact. Conjunctivae clear. Nose patent. Mucous membranes are moist. NECK: Supple. No carotid bruit, JVD, or thyromegaly. CHEST: Bilaterally symmetrical. HEART: S1 and S2 positive. LUNGS: Clear to auscultation. ABDOMEN: Soft. Bowel sounds are present. No organomegaly. EXTREMITIES: No edema. No cyanosis. NEUROLOGIC: The patient is awake and alert. Moving all four extremities, but the patient is bedridden. Follows simple commands. LABORATORY DATA: Hemoglobin 11.9, hematocrit 33.5, white blood cells 7.4, and platelets 144,000. Sodium 133, potassium is 3.9, BUN 38, creatinine 2.3, calcium is 7.8, AST 37, and ALT 39. Urine culture shows Klebsiella pneumoniae. Chest x-ray shows no evidence of any infiltrates or consolidation. ASSESSMENT AND PLAN: Mr. Humberto London has acute renal failure -- after hydration, improved; urinary tract infection -- getting antibiotics, history of cerebrovascular accident -- improved to some extent; hypertension; coronary artery disease; cholelithiasis; status post diarrhea - improved; getting physical therapy; getting antibiotics; gastric prophylaxis; deep venous thrombosis prophylaxis; still continue IV fluid. Seen by Dr. Scott, Infectious Disease. The patient is wheelchair bound. Monitor and white blood cell trend. Continue Levaquin for seven days and consider oral completion after 3 days of IV Levaquin. Gastrointestinal and deep venous thrombosis prophylaxis. Repeat labs. We will follow. Marina Weir MD MTDD
[2018-01-11 11:11] LABS: ALBUMIN 3.5 g/dL (3.0-4.8); ALT/SGPT 53 U/L (7-56); AST/SGOT 49 U/L (17-59); BLOOD UREA NITROGEN 20 mg/dL (7-21); CALCIUM 8.1 mg/dL (8.4-10.5); GFR AFRICAN-AMERICAN > 60; GFR NON-AFRICAN AMERICAN > 60; MAGNESIUM 1.8 mg/dL (1.7-2.2)
[2018-01-11] MEDS ORDERED: Potassium Chloride 20 mEq ER Tab PO ONE (12:23)
--- NOTE | 2018-01-11 17:28 | CP.PCM.PN ---
Subjective - Date & Time of Evaluation Date of Evaluation: 01/11/18 Time of Evaluation: 17:00 - Subjective Subjective: Infectious Disease Follow Up: January 11, 2018 72 yo male found be family to be confused with poor oral intake, dizziness, weakness, lightheadedness, and decreased urination. Found to have acute renal failure in ER. The patient is a extremely poor historian. The patient is also wheelchair bound. Changes started one week ago. Medical history includes HTN, CVA with residual left sided weakness, Hepatitis C, and wheelchair bound. Urine cultures with gram negative shasta growth identified as Klebsiella. Limited antibiotic choices due to PCN allergies. Currently on Levaquin for antibiotic coverage. He is more awake and alert. He is eating better and answers questions more consistently. He has no complaints at this time. He appears comfortable. Objective - Vital Signs/Intake and Output Vital Signs (last 24 hours): Temp Pulse Resp BP Pulse Ox 98.5 F 100 H 20 148/70 95 01/11/18 16:00 01/11/18 16:00 01/11/18 16:00 01/11/18 16:00 01/11/18 16:00 Intake and Output: 01/11/18 01/11/18 06:59 18:59 Output Total 600 400 Balance -600 -400 - Medications Medications: Current Medications Acetaminophen (Tylenol 325mg Tab) 650 mg PO Q4H PRN; Protocol PRN Reason: Pain, moderate (4-7) Albuterol/Ipratropium (Duoneb 3 Mg/0.5 Mg (3 Ml) Ud) 3 ml IH [id number] TERRY PRN Reason: Protocol Last Admin: 01/11/18 13:11 Dose: 3 ml Amlodipine Besylate (Norvasc) 10 mg PO DAILY TERRY PRN Reason: Protocol Last Admin: 01/11/18 10:37 Dose: 10 mg Aspirin (Ecotrin) 81 mg PO 0800 TERRY PRN Reason: Protocol Last Admin: 01/11/18 08:32 Dose: 81 mg Ergocalciferol (Drisdol 50,000 Intl Units Cap) 1 cap PO Q7D TERRY PRN Reason: Protocol Last Admin: 01/09/18 17:55 Dose: Not Given Ergocalciferol (Drisdol 50,000 Intl Units Cap) 1 cap PO Q7D TERRY PRN Reason: Protocol Famotidine (Pepcid) 20 mg PO HS TERRY PRN Reason: Protocol Last Admin: 01/10/18 22:47 Dose: 20 mg Hydralazine HCl (Apresoline) 25 mg PO BID TERRY PRN Reason: Protocol Last Admin: 01/11/18 10:37 Dose: 25 mg Sodium Chloride (Sodium Chloride 0.45%) 1,000 mls @ 60 mls/hr IV .[id number] TERRY PRN Reason: Protocol Last Admin: 01/11/18 09:57 Dose: 60 mls/hr Insulin Human Regular (Humulin R Low) 0 units SC ACHS TERRY PRN Reason: Protocol Last Admin: 01/11/18 12:30 Dose: 1 units Levofloxacin (Levaquin) 250 mg PO DAILY [facility] Stop: 01/15/18 10:01 Ondansetron HCl (Zofran Inj) 4 mg IVP Q6H PRN; Protocol PRN Reason: Nausea/Vomiting - Labs Labs: 01/10/18 11:00 01/11/18 10:30 - Constitutional Appears: Non-toxic, No Acute Distress, Chronically Ill - Head Exam Head Exam: ATRAUMATIC, NORMOCEPHALIC - Eye Exam Eye Exam: EOMI, PERRL Pupil Exam: NORMAL ACCOMODATION, PERRL - ENT Exam ENT Exam: Mucous Membranes Moist, Normal External Ear Exam, TM's Normal Bilaterally - Neck Exam Neck Exam: Full ROM, Normal Inspection - Respiratory Exam Respiratory Exam: Clear to Ausculation Bilateral, NORMAL BREATHING PATTERN. absent: Rales, Rhonchi, Wheezes - Cardiovascular Exam Cardiovascular Exam: REGULAR RHYTHM, RRR, +S1, +S2 - GI/Abdominal Exam GI & Abdominal Exam: Soft, Normal Bowel Sounds. absent: Distended, Tenderness - Extremities Exam Extremities Exam: absent: Joint Swelling, Pedal Edema - Neurological Exam Neurological Exam: Alert, Awake, CN II-XII Intact Additional comments: AAO x 2-3 left sided weakness. Wheelchair bound - Psychiatric Exam Psychiatric exam: Normal Affect, Normal Mood - Skin Skin Exam: Intact, Normal Color Assessment and Plan - Assessment and Plan (Free Text) Assessment: 72 yo male who appears calm at this time with lethargy, decreased urinary output, and findings of acute renal failure on hospitalization. The patient with mild leukocytosis. Afebrile at this time. Chest X-ray with no active disease. Cannot rule out UTI as of yet. Was on Aztreonam due to PCN Allergies. Supportive care. Gram negative rods in urine cultures identified as Klebsiella sensitive to Fluoroquinolones. Pimentel cultures. Monitor fever trend and WBC trend. Continue on Levaquin for 5-7 days in total. Can consider oral completion after 3 days of IV Levaquin. The patient is back to his baseline levels. Thank you for allowing me to participate in the care of the patient, we will follow with you.
--- NOTE | 2018-01-11 19:04 | CP.PCM.PN ---
Subjective - Date & Time of Evaluation Date of Evaluation: 01/11/18 Time of Evaluation: 11:00 - Subjective Subjective: Patient reports feeling well; tolerating diet; denies shortness of breath; Objective - Vital Signs/Intake and Output Vital Signs (last 24 hours): Temp Pulse Resp BP Pulse Ox 98.5 F 100 H 20 148/70 95 01/11/18 16:00 01/11/18 17:32 01/11/18 16:00 01/11/18 17:32 01/11/18 16:00 Intake and Output: 01/11/18 01/12/18 18:59 06:59 Output Total 400 Balance -400 - Medications Medications: Current Medications Acetaminophen (Tylenol 325mg Tab) 650 mg PO Q4H PRN; Protocol PRN Reason: Pain, moderate (4-7) Albuterol/Ipratropium (Duoneb 3 Mg/0.5 Mg (3 Ml) Ud) 3 ml IH [id number] TERRY PRN Reason: Protocol Last Admin: 01/11/18 13:11 Dose: 3 ml Amlodipine Besylate (Norvasc) 10 mg PO DAILY TERRY PRN Reason: Protocol Last Admin: 01/11/18 10:37 Dose: 10 mg Aspirin (Ecotrin) 81 mg PO 0800 TERRY PRN Reason: Protocol Last Admin: 01/11/18 08:32 Dose: 81 mg Ergocalciferol (Drisdol 50,000 Intl Units Cap) 1 cap PO Q7D TERRY PRN Reason: Protocol Last Admin: 01/09/18 17:55 Dose: Not Given Ergocalciferol (Drisdol 50,000 Intl Units Cap) 1 cap PO Q7D TERRY PRN Reason: Protocol Famotidine (Pepcid) 20 mg PO HS TERRY PRN Reason: Protocol Last Admin: 01/10/18 22:47 Dose: 20 mg Hydralazine HCl (Apresoline) 25 mg PO BID TERRY PRN Reason: Protocol Last Admin: 01/11/18 17:32 Dose: 25 mg Sodium Chloride (Sodium Chloride 0.45%) 1,000 mls @ 60 mls/hr IV .[id number] TERRY PRN Reason: Protocol Last Admin: 01/11/18 09:57 Dose: 60 mls/hr Insulin Human Regular (Humulin R Low) 0 units SC ACHS TERRY PRN Reason: Protocol Last Admin: 01/11/18 17:30 Dose: 1 units Levofloxacin (Levaquin) 250 mg PO DAILY TERRY Stop: 01/15/18 10:01 Ondansetron HCl (Zofran Inj) 4 mg IVP Q6H PRN; Protocol PRN Reason: Nausea/Vomiting - Labs Labs: 01/10/18 11:00 01/11/18 10:30 - Constitutional Appears: Non-toxic, No Acute Distress - Eye Exam Eye Exam: absent: Scleral icterus - ENT Exam ENT Exam: Mucous Membranes Moist - Respiratory Exam Respiratory Exam: absent: Respiratory Distress Additional comments: diffuse wheezing - Cardiovascular Exam Additional comments: muffled heart sounds - GI/Abdominal Exam GI & Abdominal Exam: Soft. absent: Distended, Tenderness - Exam Exam: absent: Bladder Distension - Extremities Exam Additional comments: no leg edema; - Neurological Exam Neurological Exam: Alert, Awake - Psychiatric Exam Psychiatric exam: Normal Mood. absent: Agitated - Skin Skin Exam: Warm. absent: Cyanosis Assessment and Plan (1) Acute renal failure Assessment & Plan: Resolving; urine output stabilized; continue 1/2NS at 60 cc/hr for now; Status: Acute (2) Diabetes Assessment & Plan: New onset; getting coverage; Status: Acute (3) HTN (hypertension) Assessment & Plan: BP controlled on amlodipine and hydralazine, continue same; Status: Acute (4) Hematuria Assessment & Plan: Likely urologic lesion; urine cytology still not sent, re-ordered; Status: Acute (5) Hypokalemia Assessment & Plan: Mild, replenishing PO prn; Status: Acute
[2018-01-12] MEDS: Sodium Chloride 0.45% 1,000 ML IV SCH (02:58)
[2018-01-12] MEDS: Albuterol-Ipratrop 3 mg / 0.5 (3 ml) UD IH SCH ×4 (03:30→19:55)
--- NOTE | 2018-01-12 04:25 | PN ---
DATE: 01/11/2018 PULMONARY PROGRESS NOTE REFERRING PHYSICIAN: Dr. Weir. SUBJECTIVE: He is lying in the bed, head at 45 degrees. Night was unremarkable. Did not use BiPAP last night. Cough is better. No nausea, no vomiting, no diarrhea. No leg pain or leg swelling. OBJECTIVE: GENERAL: In no acute distress. VITAL SIGNS: Temperature is 98, heart rate is 100, respiratory rate is 20, blood pressure 148/70, pulse ox 95% on room air. HEENT: Moist mucous membrane. Crowded airway. Mallampati score is 4. NECK: Supple. No JVD. LUNGS: Have a fair airflow with few rhonchi. HEART: S1 and S2. ABDOMEN: Soft, nontender. No organomegaly. EXTREMITIES: No edema. NEUROLOGIC: Awake and alert. Follows simple command. MEDICATIONS: He is on hydralazine 25 mg twice a day, vitamin D 50,000 units q. 7 days, DuoNeb q. 6 hours round the clock, Ecotrin 81 mg daily, insulin coverage, Levaquin 250 mg daily, Norvasc 10 mg daily, Pepcid 20 mg daily, IV fluid half-normal saline 60 mL per hour, Tylenol p.r.n., Zofran p.r.n. basis. LABORATORY DATA: Shows sodium 134, potassium 3.3, chloride 100, bicarbonate is 22, BUN 20, creatinine 1.0, glucose 153, calcium 8.1, phosphorous 2.7, magnesium 1.8. AST 49, ALT 53, alk phos is 44, albumin is 3.5. IMPRESSION AND PLAN: Acute renal failure, urinary tract infection, cerebrovascular accident, hypertension, coronary artery disease, history of cholelithiasis, status post diarrhea, may have sleep apnea syndrome. From a Pulmonary point of view, doing okay. Keep head at 45 degrees. Bronchodilator. Gastric prophylaxis. IV fluid. Antibiotics. Encourage CPAP use. Thank you and we will follow with you. Kevin Riojas MD
[2018-01-12] MEDS: Insulin Reg-LOW-Coverage SC SCH ×4 (06:34→21:42)
[2018-01-12 09:45] LABS: BASO # 0.01 K/mm3 (0.0-2.0); BASO % 0.2 % (0.0-3.0); EOS % 0.8 % (1.5-5.0); GRAN # 3.35 (1.4-6.5); GRAN % 68.9 % (50.0-68.0); HEMOGLOBIN 13.5 g/dL (14.0-18.0); LYMPH % 20.6 % (22.0-35.0); MEAN CELL VOLUME 85.1 fl (80.0-105.0); MEAN CORPUSCULAR HGB CONC 36.5 g/dl (31.0-37.0); MEAN PLATELET VOLUME 11.2 fl (7.0-11.0); MONO # 0.5 (0.1-0.6); MONO % 9.5 % (1.0-6.0); RBC 4.35 10^6/uL (3.5-6.1); RED CELL DISTRIBUTION WIDTH 12.8 % (11.5-14.5); WHITE BLOOD COUNT 4.9 10^3/ul (4.5-11.0)
[2018-01-12 09:57] LABS: ALBUMIN 3.3 g/dL (3.0-4.8); ALT/SGPT 40 U/L (7-56); AST/SGOT 42 U/L (17-59); BLOOD UREA NITROGEN 16 mg/dL (7-21); CALCIUM 7.7 mg/dL (8.4-10.5); GFR AFRICAN-AMERICAN > 60; GFR NON-AFRICAN AMERICAN > 60
[2018-01-12] MEDS ORDERED: Potassium Chloride 20 mEq ER Tab PO ONE (10:11)
--- NOTE | 2018-01-12 13:50 | PN ---
DATE: 01/11/2018 SUBJECTIVE: The patient is a 72-year-old male. The patient was seen and examined on the bedside, looking comfortable, did not use BiPAP last night. The patient is noncompliant. No nausea, vomiting or diarrhea. No hematuria or hematochezia. No headache, no dizziness, no fever, no chills. Appetite is poor. Sleep was fine. PHYSICAL EXAMINATION VITAL SIGNS: Temperature 98.1, heart rate 100, respiratory rate 18, blood pressure 140/70, pulse oximetry 96% on room air. HEENT: Head normocephalic, atraumatic. Eyes, PERRLA. Extraocular movements are intact. Conjunctivae clear. Nose patent. Mucous membrane moist. NECK: Supple. No carotid bruits. No JVD or thyromegaly. CHEST: Bilaterally symmetrical. HEART: S1, S2 positive. LUNGS: Clear to auscultation. ABDOMEN: Soft. Bowel sounds are present. No organomegaly. EXTREMITIES: No edema. No cyanosis. NEUROLOGIC: The patient is awake and alert. Follows simple commands. MEDICATIONS: Hydralazine, vitamin D, DuoNeb, Ecotrin, insulin coverage, Norvasc, Levaquin, Pepcid, NS, Tylenol, Zofran. LABORATORY DATA: Sodium 134, potassium 3.3, BUN 20, creatinine 1.0, glucose 153, AST 49, ALT 53. ASSESSMENT AND PLAN: Mr. Humberto London is a 72-year-old male with acute renal failure, getting better, getting IV fluid; urinary retention; cerebrovascular accident; hypertension; coronary artery disease; history of cholelithiasis; status post diarrhea; sleep apnea syndrome; history of chronic obstructive pulmonary disease, getting bronchodilators, gastric prophylaxis, antibiotics. Seen by Dr. Riojas, Dr. Headley and Dr. Scott. The patient has a history of hematuria; history of hypokalemia, replaced with p.o. as needed; hypertension, getting amlodipine, hydralazine; diabetes; gram-negative rods in the urine culture, notified as Klebsiella, sensitive to fluoroquinolones. Monitoring the fever trend and white blood cell , Continue Levaquin for five to seven days. Getting physical therapy. The patient is getting on the baseline level. Gastrointestinal and deep venous thrombosis prophylaxis. Repeat labs. We will follow up. Marina Weir MD [facility]
--- NOTE | 2018-01-12 19:26 | CP.PCM.PN ---
Subjective - Date & Time of Evaluation Date of Evaluation: 01/12/18 Time of Evaluation: 11:00 - Subjective Subjective: Reports feeling well; denies shortness of breath; Objective - Vital Signs/Intake and Output Vital Signs (last 24 hours): Temp Pulse Resp BP Pulse Ox 98.5 F 103 H 19 136/66 93 L 01/12/18 17:44 01/12/18 17:44 01/12/18 17:44 01/12/18 17:44 01/12/18 17:44 - Medications Medications: Current Medications Acetaminophen (Tylenol 325mg Tab) 650 mg PO Q4H PRN; Protocol PRN Reason: Pain, moderate (4-7) Albuterol/Ipratropium (Duoneb 3 Mg/0.5 Mg (3 Ml) Ud) 3 ml IH [id number] TERRY PRN Reason: Protocol Last Admin: 01/12/18 13:26 Dose: Not Given Amlodipine Besylate (Norvasc) 10 mg PO DAILY TERRY PRN Reason: Protocol Last Admin: 01/12/18 09:22 Dose: 10 mg Aspirin (Ecotrin) 81 mg PO 0800 TERRY PRN Reason: Protocol Last Admin: 01/12/18 08:07 Dose: 81 mg Ergocalciferol (Drisdol 50,000 Intl Units Cap) 1 cap PO Q7D TERRY PRN Reason: Protocol Last Admin: 01/09/18 17:55 Dose: Not Given Ergocalciferol (Drisdol 50,000 Intl Units Cap) 1 cap PO Q7D TERRY PRN Reason: Protocol Famotidine (Pepcid) 20 mg PO HS TERRY PRN Reason: Protocol Last Admin: 01/11/18 21:30 Dose: 20 mg Hydralazine HCl (Apresoline) 25 mg PO BID TERRY PRN Reason: Protocol Last Admin: 01/12/18 17:32 Dose: 25 mg Insulin Human Regular (Humulin R Low) 0 units SC ACHS TERRY PRN Reason: Protocol Last Admin: 01/12/18 17:46 Dose: 1 units Levofloxacin (Levaquin) 250 mg PO DAILY TERRY Stop: 01/15/18 10:01 Last Admin: 01/12/18 09:23 Dose: 250 mg Ondansetron HCl (Zofran Inj) 4 mg IVP Q6H PRN; Protocol PRN Reason: Nausea/Vomiting - Labs Labs: 01/12/18 09:38 01/12/18 09:38 - Constitutional Appears: Well, No Acute Distress - Eye Exam Eye Exam: Normal appearance. absent: Scleral icterus - ENT Exam ENT Exam: Mucous Membranes Moist - Respiratory Exam Respiratory Exam: Wheezes. absent: Respiratory Distress Additional comments: mildly tachypneic - Cardiovascular Exam Additional comments: muffled heart sounds - GI/Abdominal Exam GI & Abdominal Exam: Soft. absent: Distended, Tenderness - Extremities Exam Additional comments: no leg edema; - Neurological Exam Neurological Exam: Alert, Awake - Psychiatric Exam Psychiatric exam: absent: Agitated - Skin Skin Exam: Warm. absent: Cyanosis Assessment and Plan (1) Acute renal failure Assessment & Plan: Resolving; urine output stabilized; IVF stopped; Status: Acute (2) Diabetes Status: Acute (3) HTN (hypertension) Assessment & Plan: BP controlled on amlodipine and hydralazine, continue; Status: Acute (4) Hematuria Assessment & Plan: Awaiting urine cytology; will need outpatient urologic eval; Status: Acute (5) Hypokalemia Assessment & Plan: Mild, replenishing prn; Status: Acute
--- NOTE | 2018-01-12 23:22 | PN ---
DATE: 01/12/2018 PULMONARY PROGRESS NOTE REFERRING PHYSICIAN: Marina Weir MD. SUBJECTIVE: He is sitting up in a bed, getting help with feeding. No headache. No rhinitis. Mild cough. No nausea. No vomiting, diarrhea, leg pain, leg swelling. OBJECTIVE: GENERAL: In no acute distress. VITAL SIGNS: Temperature is 98, heart rate is 103, respiratory rate is 20, blood pressure 136/66, pulse ox of 93% on room air. HEENT: Moist mucous membrane. Crowded airway. Mallampati score is 4. NECK: Supple. No JVD. LUNGS: Have a fair airflow with rhonchi. HEART: S1 and S2. ABDOMEN: Soft, nontender. No organomegaly. EXTREMITIES: No edema. NEUROLOGIC: Awake, alert. Follows simple command. MEDICATIONS: He is on hydralazine 25 mg twice a day, vitamin D 50,000 units q. 7 days, DuoNeb q. 6 hours [id number], Ecotrin 81 mg daily, insulin coverage, Levaquin 250 mg daily, Norvasc 10 mg daily, Pepcid 20 mg at bedtime, Tylenol p.r.n. basis, Zofran on p.r.n. basis. LABORATORY DATA: Shows hemoglobin 13.2, hematocrit 37.0, WBC 4.9, platelet is 194. Sodium 133, potassium 3.2, chloride 102, bicarbonate 20, BUN 16, creatinine 1.0, glucose 138, calcium is 7.7, AST 42, ALT 40, alk phos is 42, albumin is 3.3. IMPRESSION AND PLAN: Acute renal failure, urinary tract infection, cerebrovascular accident, hypertension, coronary artery disease, history of cholelithiasis, status post diarrhea, may have sleep apnea syndrome, acute bronchitis. Pulmonary point of view, doing okay. Keep head at 45 degrees. Bronchodilator, aspiration precaution. Encouraged bilevel positive airway pressure use. Continue antibiotics, bronchodilator, aspiration precaution. Thank you and we will follow with you. Kevin Riojas MD
[2018-01-13] MEDS: Albuterol-Ipratrop 3 mg / 0.5 (3 ml) UD IH SCH ×4 (02:30→21:31)
[2018-01-13] MEDS: Insulin Reg-LOW-Coverage SC SCH ×4 (06:41→22:01)
--- NOTE | 2018-01-13 13:32 | PN ---
DATE: 01/12/2018 SUBJECTIVE: The patient is seen and examined at the bedside, looking comfortable. The patient's brother was sitting on the bedside also. The patient was seen and examined on 01/12/2018. The patient was getting physical therapy on the bedside. According to brother, the patient's appetite is poor. When I asked the patient, the patient said he do not like the food. Then, I told family they can bring food from home whatever he want. No nausea, vomiting, or diarrhea. No fever. No chills. No swelling of the leg. PHYSICAL EXAMINATION: VITAL SIGNS: Temperature 98, heart rate 103, respiratory rate 20, blood pressure 130/60, pulse oximetry 93% on room air. HEENT: Head normocephalic, atraumatic. Eyes: PERRLA. Extraocular muscles are intact. Conjunctivae are clear. Nose patent. Mucous membrane moist. NECK: Supple. No carotid bruit. No JVD or thyromegaly. CHEST: Bilaterally symmetrical. Lungs have fair air flow with rhonchi. HEART: S1 and S2 positive. ABDOMEN: Soft, nontender. No organomegaly. EXTREMITIES: No edema. No cyanosis. NEUROLOGICAL: Patient is awake, alert. Follows simple commands. MEDICATIONS: Hydralazine, vitamin D, DuoNeb, Ecotrin, insulin, Levaquin, Norvasc, Pepcid, Tylenol, and Zofran. LABORATORY DATA: Hemoglobin 13.2, hematocrit 37.3, white blood cells 4.9, platelets 194. Sodium 133, potassium 3.2. BUN 16, creatinine 1.0. AST 42, ALT 40, albumin 3.3. ASSESSMENT AND PLAN: Mr. Humberto London is a 72-year-old male with acute renal failure, urinary tract infection, cerebrovascular accident in the past, hypertension and deconditioned, coronary artery disease, history of cholelithiasis, status post diarrhea, sleep apnea syndrome, bedridden, acute bronchitis, getting antibiotics and bedside physical therapy. Patient is still not able to do his ADL. Long discussion had done on the bedside with the brother and social workers. Encourage BiPAP, continuous antibiotics, aspiration precautions, GI/DVT prophylaxis. We will follow up. Marina Weir MD [facility] # [id number]
--- NOTE | 2018-01-13 17:15 | CP.PCM.PN ---
Subjective - Date & Time of Evaluation Date of Evaluation: 01/12/18 Time of Evaluation: 20:00 - Subjective Subjective: Infectious Disease Follow Up: January 12, 2018 72 yo male found be family to be confused with poor oral intake, dizziness, weakness, lightheadedness, and decreased urination. Found to have acute renal failure in ER. The patient is a extremely poor historian. The patient is also wheelchair bound. Changes started one week ago. Medical history includes HTN, CVA with residual left sided weakness, Hepatitis C, and wheelchair bound. Urine cultures with gram negative shasta growth identified as Klebsiella. Limited antibiotic choices due to PCN allergies. Currently on Levaquin for antibiotic coverage. He is more awake and alert. He is eating better and answers questions more consistently. He has no complaints at this time. He appears comfortable. Objective - Vital Signs/Intake and Output Vital Signs (last 24 hours): Temp Pulse Resp BP Pulse Ox 98.3 F 90 16 136/69 100 01/13/18 16:30 01/13/18 16:30 01/13/18 16:30 01/13/18 16:30 01/13/18 16:30 Intake and Output: 01/13/18 01/13/18 06:59 18:59 Intake Total 250 Output Total 1100 Balance -850 - Medications Medications: Current Medications Acetaminophen (Tylenol 325mg Tab) 650 mg PO Q4H PRN; Protocol PRN Reason: Pain, moderate (4-7) Albuterol/Ipratropium (Duoneb 3 Mg/0.5 Mg (3 Ml) Ud) 3 ml IH [id number] TERRY PRN Reason: Protocol Last Admin: 01/13/18 13:08 Dose: Not Given Amlodipine Besylate (Norvasc) 10 mg PO DAILY TERRY PRN Reason: Protocol Last Admin: 01/13/18 09:51 Dose: 10 mg Aspirin (Ecotrin) 81 mg PO 0800 TERRY PRN Reason: Protocol Last Admin: 01/13/18 08:19 Dose: 81 mg Ergocalciferol (Drisdol 50,000 Intl Units Cap) 1 cap PO Q7D TERRY PRN Reason: Protocol Last Admin: 01/09/18 17:55 Dose: Not Given Ergocalciferol (Drisdol 50,000 Intl Units Cap) 1 cap PO Q7D TERRY PRN Reason: Protocol Famotidine (Pepcid) 20 mg PO HS TERRY PRN Reason: Protocol Last Admin: 01/12/18 21:43 Dose: 20 mg Hydralazine HCl (Apresoline) 25 mg PO BID TERRY PRN Reason: Protocol Last Admin: 01/13/18 09:51 Dose: 25 mg Insulin Human Regular (Humulin R Low) 0 units SC ACHS TERRY PRN Reason: Protocol Last Admin: 01/13/18 16:40 Dose: 1 units Levofloxacin (Levaquin) 250 mg PO DAILY [facility] Stop: 01/15/18 10:01 Last Admin: 01/13/18 09:52 Dose: 250 mg Ondansetron HCl (Zofran Inj) 4 mg IVP Q6H PRN; Protocol PRN Reason: Nausea/Vomiting - Labs Labs: 01/12/18 09:38 01/12/18 09:38 - Constitutional Appears: Non-toxic, No Acute Distress, Chronically Ill - Head Exam Head Exam: ATRAUMATIC, NORMOCEPHALIC - Eye Exam Eye Exam: EOMI, PERRL Pupil Exam: NORMAL ACCOMODATION, PERRL - ENT Exam ENT Exam: Mucous Membranes Moist, Normal External Ear Exam, TM's Normal Bilaterally - Neck Exam Neck Exam: Full ROM, Normal Inspection - Respiratory Exam Respiratory Exam: Clear to Ausculation Bilateral, NORMAL BREATHING PATTERN. absent: Rales, Rhonchi, Wheezes - Cardiovascular Exam Cardiovascular Exam: REGULAR RHYTHM, RRR, +S1, +S2 - GI/Abdominal Exam GI & Abdominal Exam: Soft, Normal Bowel Sounds. absent: Distended, Tenderness - Extremities Exam Extremities Exam: absent: Joint Swelling, Pedal Edema - Neurological Exam Neurological Exam: Alert, Awake, CN II-XII Intact Additional comments: AAO x 2-3 left sided weakness Wheelchair bound. - Psychiatric Exam Psychiatric exam: Normal Affect, Normal Mood - Skin Skin Exam: Intact, Normal Color Assessment and Plan - Assessment and Plan (Free Text) Assessment: 72 yo male who appears calm at this time with lethargy, decreased urinary output, and findings of acute renal failure on hospitalization. The patient with mild leukocytosis. Afebrile at this time. Chest X-ray with no active disease. Cannot rule out UTI as of yet. Was on Aztreonam due to PCN Allergies. Supportive care. Gram negative rods in urine cultures identified as Klebsiella sensitive to Fluoroquinolones. Pimentel cultures. Monitor fever trend and WBC trend. Continue on Levaquin for 5-7 days in total. Can consider oral completion after 3 days of IV Levaquin. Day 3 in [facility]CU. The patient is back to his baseline levels. Thank you for allowing me to participate in the care of the patient, we will follow with you.
--- NOTE | 2018-01-13 17:18 | CP.PCM.PN ---
Subjective - Date & Time of Evaluation Date of Evaluation: 01/13/18 Time of Evaluation: 17:00 - Subjective Subjective: Infectious Disease Follow Up: January 13, 2018 72 yo male found be family to be confused with poor oral intake, dizziness, weakness, lightheadedness, and decreased urination. Found to have acute renal failure in ER. The patient is a extremely poor historian. The patient is also wheelchair bound. Changes started one week ago. Medical history includes HTN, CVA with residual left sided weakness, Hepatitis C, and wheelchair bound. Urine cultures with gram negative shasta growth identified as Klebsiella. Limited antibiotic choices due to PCN allergies. Currently on Levaquin for antibiotic coverage. He is more awake and alert. He is eating better and answers questions more consistently. He has no complaints at this time. He appears comfortable. Day 4 in TRCU. Objective - Vital Signs/Intake and Output Vital Signs (last 24 hours): Temp Pulse Resp BP Pulse Ox 98.3 F 90 16 136/69 100 01/13/18 16:30 01/13/18 17:13 01/13/18 16:30 01/13/18 17:13 01/13/18 16:30 Intake and Output: 01/13/18 01/13/18 06:59 18:59 Intake Total 250 Output Total 1100 Balance -850 - Medications Medications: Current Medications Acetaminophen (Tylenol 325mg Tab) 650 mg PO Q4H PRN; Protocol PRN Reason: Pain, moderate (4-7) Albuterol/Ipratropium (Duoneb 3 Mg/0.5 Mg (3 Ml) Ud) 3 ml IH [id number] TERRY PRN Reason: Protocol Last Admin: 01/13/18 13:08 Dose: Not Given Amlodipine Besylate (Norvasc) 10 mg PO DAILY TERRY PRN Reason: Protocol Last Admin: 01/13/18 09:51 Dose: 10 mg Aspirin (Ecotrin) 81 mg PO 0800 TERRY PRN Reason: Protocol Last Admin: 01/13/18 08:19 Dose: 81 mg Ergocalciferol (Drisdol 50,000 Intl Units Cap) 1 cap PO Q7D TERRY PRN Reason: Protocol Last Admin: 01/09/18 17:55 Dose: Not Given Ergocalciferol (Drisdol 50,000 Intl Units Cap) 1 cap PO Q7D TERRY PRN Reason: Protocol Famotidine (Pepcid) 20 mg PO HS TERRY PRN Reason: Protocol Last Admin: 01/12/18 21:43 Dose: 20 mg Hydralazine HCl (Apresoline) 25 mg PO BID TERRY PRN Reason: Protocol Last Admin: 01/13/18 17:13 Dose: 25 mg Insulin Human Regular (Humulin R Low) 0 units SC ACHS TERRY PRN Reason: Protocol Last Admin: 01/13/18 16:40 Dose: 1 units Levofloxacin (Levaquin) 250 mg PO DAILY [facility] Stop: 01/15/18 10:01 Last Admin: 01/13/18 09:52 Dose: 250 mg Ondansetron HCl (Zofran Inj) 4 mg IVP Q6H PRN; Protocol PRN Reason: Nausea/Vomiting - Labs Labs: 01/12/18 09:38 01/12/18 09:38 - Constitutional Appears: Non-toxic, No Acute Distress, Chronically Ill - Head Exam Head Exam: ATRAUMATIC, NORMOCEPHALIC - Eye Exam Eye Exam: EOMI, PERRL Pupil Exam: NORMAL ACCOMODATION, PERRL - ENT Exam ENT Exam: Mucous Membranes Moist, Normal External Ear Exam, TM's Normal Bilaterally - Neck Exam Neck Exam: Full ROM, Normal Inspection - Respiratory Exam Respiratory Exam: Clear to Ausculation Bilateral, NORMAL BREATHING PATTERN. absent: Rales, Rhonchi, Wheezes - Cardiovascular Exam Cardiovascular Exam: REGULAR RHYTHM, RRR, +S1, +S2 - GI/Abdominal Exam GI & Abdominal Exam: Soft, Normal Bowel Sounds. absent: Distended, Tenderness - Extremities Exam Extremities Exam: absent: Joint Swelling, Pedal Edema - Neurological Exam Neurological Exam: Alert, Awake, CN II-XII Intact Additional comments: AAO x 2-3 left sided weakness Wheelchair bound. - Psychiatric Exam Psychiatric exam: Normal Affect, Normal Mood - Skin Skin Exam: Intact, Normal Color Assessment and Plan - Assessment and Plan (Free Text) Assessment: 72 yo male who appears calm at this time with lethargy, decreased urinary output, and findings of acute renal failure on hospitalization. The patient with mild leukocytosis. Afebrile at this time. Chest X-ray with no active disease. Cannot rule out UTI as of yet. Was on Aztreonam due to PCN Allergies. Supportive care. Gram negative rods in urine cultures identified as Klebsiella sensitive to Fluoroquinolones. Pimentel cultures. Monitor fever trend and WBC trend. Continue on Levaquin for 5-7 days in total. Can consider oral completion after 3 days of IV Levaquin. Day 4 in TRCU. The patient is back to his baseline levels. Thank you for allowing me to participate in the care of the patient, we will follow with you.
--- NOTE | 2018-01-13 17:30 | CP.PCM.PCO ---
Physician Communication Note - Physician Communication Note Physician Communication Note: pt was seen for 30min
--- NOTE | 2018-01-13 23:15 | CP.PCM.PN ---
Subjective - Date & Time of Evaluation Date of Evaluation: 01/13/18 Time of Evaluation: 11:00 - Subjective Subjective: Patient denies any complaints; says he's breathing and eating well; per nursing staff, not really getting out of bed; Objective - Vital Signs/Intake and Output Vital Signs (last 24 hours): Temp Pulse Resp BP Pulse Ox 98.3 F 90 16 136/69 100 01/13/18 16:30 01/13/18 17:13 01/13/18 16:30 01/13/18 17:13 01/13/18 16:30 - Medications Medications: Current Medications Acetaminophen (Tylenol 325mg Tab) 650 mg PO Q4H PRN; Protocol PRN Reason: Pain, moderate (4-7) Albuterol/Ipratropium (Duoneb 3 Mg/0.5 Mg (3 Ml) Ud) 3 ml IH [id number] TERRY PRN Reason: Protocol Last Admin: 01/13/18 21:31 Dose: Not Given Amlodipine Besylate (Norvasc) 10 mg PO DAILY TERRY PRN Reason: Protocol Last Admin: 01/13/18 09:51 Dose: 10 mg Aspirin (Ecotrin) 81 mg PO 0800 TERRY PRN Reason: Protocol Last Admin: 01/13/18 08:19 Dose: 81 mg Ergocalciferol (Drisdol 50,000 Intl Units Cap) 1 cap PO Q7D TERRY PRN Reason: Protocol Last Admin: 01/09/18 17:55 Dose: Not Given Ergocalciferol (Drisdol 50,000 Intl Units Cap) 1 cap PO Q7D TERRY PRN Reason: Protocol Famotidine (Pepcid) 20 mg PO HS TERRY PRN Reason: Protocol Last Admin: 01/13/18 21:22 Dose: 20 mg Hydralazine HCl (Apresoline) 25 mg PO BID TERRY PRN Reason: Protocol Last Admin: 01/13/18 17:13 Dose: 25 mg Insulin Human Regular (Humulin R Low) 0 units SC ACHS TERRY PRN Reason: Protocol Last Admin: 01/13/18 22:01 Dose: Not Given Levofloxacin (Levaquin) 250 mg PO DAILY TERRY Stop: 01/15/18 10:01 Last Admin: 01/13/18 09:52 Dose: 250 mg Ondansetron HCl (Zofran Inj) 4 mg IVP Q6H PRN; Protocol PRN Reason: Nausea/Vomiting - Labs Labs: 01/12/18 09:38 01/12/18 09:38 - Constitutional Appears: Non-toxic, No Acute Distress - Eye Exam Eye Exam: Normal appearance. absent: Scleral icterus - ENT Exam ENT Exam: Mucous Membranes Moist - Respiratory Exam Respiratory Exam: Wheezes. absent: Respiratory Distress - Cardiovascular Exam Additional comments: muffled heart sounds; - GI/Abdominal Exam GI & Abdominal Exam: Soft. absent: Distended, Tenderness - Exam Exam: absent: Bladder Distension - Extremities Exam Additional comments: no leg edema; - Neurological Exam Neurological Exam: Alert, Awake - Psychiatric Exam Psychiatric exam: Normal Affect, Normal Mood. absent: Agitated - Skin Skin Exam: Warm. absent: Cyanosis Assessment and Plan (1) Acute renal failure Assessment & Plan: Resolved; monitor renal function periodically; urine output stable, will remove julio; Status: Acute (2) Diabetes Assessment & Plan: Stable blood sugar on just low dose coverage; can consider starting PO metformin 500 mg bid; Status: Acute (3) HTN (hypertension) Assessment & Plan: BP controlled on amlodipine and hydralazine, continue; Status: Acute (4) Hematuria Assessment & Plan: Urine sent for cytology, will f/u; Status: Acute (5) Hypokalemia Assessment & Plan: Replenished yesterday; monitor prn; Status: Acute
--- NOTE | 2018-01-13 23:25 | PN ---
DATE: 01/13/2018 REFERRING PHYSICIAN: Marina Weir MD SUBJECTIVE: He is lying in the bed, head at 45 degrees. Night was unremarkable. No headache, no rhinitis. Mild cough. No nausea, no dysuria. No leg pain or leg swelling. OBJECTIVE: GENERAL: In no acute distress. VITAL SIGNS: Temperature is 98, heart rate 90, respiratory rate 18, blood pressure 136/69, pulse ox 100% room air. HEENT: Moist mucous membrane. Crowded airway. Mallampati score is four. NECK: Supple. No JVD. LUNGS: Has a fair airflow with rhonchi. HEART: S1, S2. ABDOMEN: Soft, nontender. No organomegaly. EXTREMITIES: No edema. NEUROLOGIC: Awake, alert, and follows simple commands. MEDICATIONS: He is on hydralazine 25 mg twice a day, also vitamin D 50,000 units weekly, DuoNeb q.6 hours, Ecotrin 81 mg daily, insulin coverage, Levaquin 250 mg daily, Norvasc 10 mg daily, Pepcid 20 mg daily, Tylenol p.r.n., Zofran p.r.n. basis. LABORATORY DATA: Shows blood sugar this morning 135. IMPRESSION AND PLAN: Acute renal failure, urinary tract infection, history of cerebrovascular accident, hypertension, coronary artery disease, cholelithiasis, history of diarrhea, may have sleep apnea syndrome, acute bronchitis. From a Pulmonary point of view, doing okay. Continue bronchodilator. Keep head at 45 degrees. Encourage BiPAP use. Sleep apnea precaution, avoid sedation. Follow up electrolytes. Thank you and we will follow with you. Kevin Riojas MD
[2018-01-14] MEDS: Albuterol-Ipratrop 3 mg / 0.5 (3 ml) UD IH SCH ×4 (01:35→21:38)
--- NOTE | 2018-01-14 02:47 | CON ---
DATE: HISTORY OF PRESENT ILLNESS: In short, the patient is a 72-year-old male, multiple medical issues. The patient was admitted on the medical side for evaluation of possible CVA. The patient also had confusion, dizziness, weakness, lightheadedness. Psych consult was called for evaluation of "flat affect" and possible mood symptoms. The patient was seen and examined today at the morning time with medical students. The patient presented to be lethargic. The patient was able to open his eyes and provide simple story. The patient is aware of the circumstances of his admission; reported that at the present moment he feels okay. The patient denied being depressed, denied thoughts of harming himself or others. The patient denied hearing voices, denied seeing things. The patient reported that at the present moment he cannot walk and he is concerned about that but the patient does not appear to be concerned or anxious. The patient denied history of previous evaluation by a psychiatrist or previous admission to the psychiatric inpatient unit. Denied history of suicidal attempts. The patient's vital signs are stable. Temperature 98.3, pulse is 90, blood pressure 136/69, respirations 16, oxygen saturation is 100. MEDICATIONS REVIEWED: Tylenol, DuoNeb, Norvasc, aspirin, Drisdol, Pepcid, hydralazine, Humulin, Levaquin, and Zofran. LABORATORY DATA: Labs reviewed, most recent from today. Hemoglobin and hematocrit 13.5 and 37.0. Chemistry reviewed. Potassium 3.2. The rest seems to be within normal limits. MENTAL STATUS EXAMINATION: The patient was sleepy but easily arousable, intermittent eye contact. Speech was under productive, low volume, monotonic. Mood described, "I'm okay". Affect was flat. Thought process concrete. Thought content, the patient denied visual, auditory, or tactile hallucinations. Denied paranoid ideation. The patient denied thoughts of harming himself or others. Denied intents or plan. Insight and judgment seem to be fair. Impulse well controlled. IMPRESSION: Rule out mood disorder due to general medical condition. Rule out delirium. Rule out adjustment disorder. PLAN: The patient denied being depressed. The patient denied thoughts of harming himself or others. The patient is not psychotic. The patient reported to have good appetite and sleep. The patient deemed to be doing relatively well. There is no need for psychiatrist to follow up on this patient. The patient deemed not to be in danger to self or others. The patient poses no imminent danger to self or others. We will sign off. Should you have any questions, give me a call back. Thank you so much for letting me participate in care of your patient. Paloma Burrell MD
[2018-01-14] MEDS: Insulin Reg-LOW-Coverage SC SCH ×4 (06:35→22:10)
[2018-01-14] MEDS ORDERED: Ergocalciferol 50,000 Intl Units Cap PO SCH (14:00)
--- NOTE | 2018-01-14 18:04 | CP.PCM.PN ---
Subjective - Date & Time of Evaluation Date of Evaluation: 01/14/18 Time of Evaluation: 16:30 - Subjective Subjective: Infectious Disease Follow Up: January 14, 2018 72 yo male found be family to be confused with poor oral intake, dizziness, weakness, lightheadedness, and decreased urination. Found to have acute renal failure in ER. The patient is a extremely poor historian. The patient is also wheelchair bound. Changes started one week ago. Medical history includes HTN, CVA with residual left sided weakness, Hepatitis C, and wheelchair bound. Urine cultures with gram negative shasta growth identified as Klebsiella. Limited antibiotic choices due to PCN allergies. Currently on Levaquin for antibiotic coverage. He is more awake and alert. He is eating better and answers questions more consistently. He has no complaints at this time. He appears comfortable. Day 5 in TRCU. Patient with difficulties with his ADLs. Family does most of this for him to my understanding. Objective - Vital Signs/Intake and Output Vital Signs (last 24 hours): Temp Pulse Resp BP Pulse Ox 98.7 F 113 H 20 134/79 94 L 01/14/18 17:11 01/14/18 17:42 01/14/18 17:11 01/14/18 17:42 01/14/18 17:11 - Medications Medications: Current Medications Acetaminophen (Tylenol 325mg Tab) 650 mg PO Q4H PRN; Protocol PRN Reason: Pain, moderate (4-7) Albuterol/Ipratropium (Duoneb 3 Mg/0.5 Mg (3 Ml) Ud) 3 ml IH [id number] TERRY PRN Reason: Protocol Last Admin: 01/14/18 13:44 Dose: 3 ml Amlodipine Besylate (Norvasc) 10 mg PO DAILY TERRY PRN Reason: Protocol Last Admin: 01/14/18 09:48 Dose: 10 mg Aspirin (Ecotrin) 81 mg PO 0800 TERRY PRN Reason: Protocol Last Admin: 01/14/18 07:59 Dose: 81 mg Ergocalciferol (Drisdol 50,000 Intl Units Cap) 1 cap PO Q7D TERRY PRN Reason: Protocol Last Admin: 01/09/18 17:55 Dose: Not Given Ergocalciferol (Drisdol 50,000 Intl Units Cap) 1 cap PO Q7D TERRY PRN Reason: Protocol Last Admin: 01/14/18 14:13 Dose: 1 cap Famotidine (Pepcid) 20 mg PO HS TERRY PRN Reason: Protocol Last Admin: 01/13/18 21:22 Dose: 20 mg Hydralazine HCl (Apresoline) 25 mg PO BID TERRY PRN Reason: Protocol Last Admin: 01/14/18 17:42 Dose: 25 mg Insulin Human Regular (Humulin R Low) 0 units SC ACHS TERRY PRN Reason: Protocol Last Admin: 01/14/18 17:43 Dose: 1 units Levofloxacin (Levaquin) 250 mg PO DAILY TERRY Stop: 01/15/18 10:01 Last Admin: 01/14/18 09:47 Dose: 250 mg Ondansetron HCl (Zofran Inj) 4 mg IVP Q6H PRN; Protocol PRN Reason: Nausea/Vomiting - Labs Labs: 01/12/18 09:38 01/12/18 09:38 - Constitutional Appears: Non-toxic, No Acute Distress, Chronically Ill - Head Exam Head Exam: ATRAUMATIC, NORMOCEPHALIC - Eye Exam Eye Exam: EOMI, PERRL Pupil Exam: NORMAL ACCOMODATION, PERRL - ENT Exam ENT Exam: Mucous Membranes Moist, Normal External Ear Exam, TM's Normal Bilaterally - Neck Exam Neck Exam: Full ROM, Normal Inspection - Respiratory Exam Respiratory Exam: Clear to Ausculation Bilateral, NORMAL BREATHING PATTERN. absent: Rales, Rhonchi, Wheezes - Cardiovascular Exam Cardiovascular Exam: REGULAR RHYTHM, RRR, +S1, +S2 - GI/Abdominal Exam GI & Abdominal Exam: Soft, Normal Bowel Sounds. absent: Distended, Tenderness - Extremities Exam Extremities Exam: absent: Joint Swelling, Pedal Edema - Neurological Exam Neurological Exam: Alert, Awake, CN II-XII Intact Additional comments: AAO x 2-3 left sided weakness Wheelchair bound. - Psychiatric Exam Psychiatric exam: Normal Affect, Normal Mood - Skin Skin Exam: Intact, Normal Color Assessment and Plan - Assessment and Plan (Free Text) Assessment: 72 yo male who appears calm at this time with lethargy, decreased urinary output, and findings of acute renal failure on hospitalization. The patient with mild leukocytosis. Afebrile at this time. Chest X-ray with no active disease. Cannot rule out UTI as of yet. Was on Aztreonam due to PCN Allergies. Supportive care. Gram negative rods in urine cultures identified as Klebsiella sensitive to Fluoroquinolones. Pimentel cultures. Monitor fever trend and WBC trend. Continue on Levaquin for 5-7 days in total. Can consider oral completion after 3 days of IV Levaquin. Day 5 in TRCU. The patient is back to his baseline levels. Thank you for allowing me to participate in the care of the patient, we will follow with you.
--- NOTE | 2018-01-14 22:34 | PN ---
DATE: 01/14/2018 PULMONARY PROGRESS NOTE REFERRING PHYSICIAN: Marina Weir MD. SUBJECTIVE: He is lying in the bed, head at 45 degrees. Night was unremarkable. Does not use BiPAP. Mild cough. No nausea, no vomiting, no diarrhea. No leg pain or leg swelling. Refusing to do physical therapy. Brother is at bedside. OBJECTIVE: GENERAL: In no acute distress. VITAL SIGNS: Temperature is 98, heart rate 108, respiratory rate is 18, blood pressure 130/74, pulse ox 95% room air. HEENT: Moist mucous membrane. Crowded airway. Mallampati score is IV. NECK: Supple. No JVD. LUNGS: Has a fair airflow with few rhonchi. HEART: S1, S2. ABDOMEN: Soft, nontender. No organomegaly. EXTREMITIES: No edema. NEUROLOGIC: Awake, alert. Does follow simple commands. MEDICATIONS: He is on hydralazine 25 mg twice a day, vitamin D 50,000 units q. 7 days, DuoNeb q. 6 hours [id number], Ecotrin 81 mg daily, insulin coverage, Levaquin 250 mg daily, Norvasc 10 mg daily, Pepcid 20 mg at bedtime, Tylenol p.r.n., Zofran p.r.n. basis. LABORATORY DATA: Shows blood sugar this morning 174. IMPRESSION AND PLAN: Status post renal failure, urinary tract infection, history of cerebrovascular accident, hypertension, coronary artery disease, cholelithiasis, may have sleep apnea syndrome, activities of daily living dysfunction, acute bronchitis. I spoke to the patient's brother at bedside, all the questions answered. Also discussed with therapist. Patient refused to do therapy even after insisting for a few minutes. I had a long discussion with the patient's brother. Issue is patient lives alone. If he does not participate in therapy and unable to get out of bed to chair, he may need to go to subacute facility for further care. He was also seen by Dr. Dow, suggested as mood disorder. Thank you and we will follow with you. Kevin Riojas MD
--- NOTE | 2018-01-15 02:59 | PN ---
DATE: 01/13/2018 SUBJECTIVE: The patient is a 72-year-old male. The patient was seen and examined at the bedside on 01/13/2018. Looking comfortable. Night was unremarkable. No nausea, vomiting, or diarrhea. No hematuria or hematochezia. No headache. No dizziness. No chest pain or palpitations. Brother was at the bedside. Length of time, discussion done with the brother and according to brother, the patient is not eating. I asked the patient why he is not taking, he said he does not like the food, then I gave permission to the brother that he can bring food from home whatever his brother wants. PHYSICAL EXAMINATION: VITAL SIGNS: Temperature 98.1, heart rate 90, respiratory rate 18, blood pressure 130/69, pulse oximetry 100% on room air. HEENT: Head is normocephalic and atraumatic. Eyes, PERRLA. Extraocular muscles are intact. Conjunctivae are clear. Nose is patent. Mucous membranes are moist. NECK: Supple. No carotid bruits. No JVD or thyromegaly. CHEST: Bilaterally symmetrical. HEART: S1 and S2 positive. LUNGS: Clear to auscultation. ABDOMEN: Soft. Bowel sounds present. No organomegaly. EXTREMITIES: No edema. No cyanosis. NEUROLOGIC: The patient is awake and alert. Follow simple commands. MEDICATIONS: Hydralazine, vitamin D, DuoNeb, Ecotrin, Levaquin, Norvasc, Pepcid, Tylenol, and Zofran. LABORATORY DATA: We do not have any recent lab today, but I reviewed old labs. ASSESSMENT AND PLAN: Mr. Humberto London is a 72-year-old male with acute renal failure, improved; urinary tract infection, getting antibiotics; history of cerebrovascular accident, old, stable; hypertension; coronary artery disease; cholelithiasis; history of diarrhea; sleep apnea syndrome; acute bronchitis. The patient is doing better. He is achieving his activities of daily living, coming back to his baseline. Discussion done with the brother. The patient lives alone, brother is not comfortable about discharge planing, but still working on that. We will continue present treatment. Repeat labs. We will follow up. Marina Weir MD [facility] # [id number]
--- NOTE | 2018-01-15 03:32 | PN ---
DATE: SUBJECTIVE: Patient is a 72-year-old male. Patient is seen and examined at the bedside, looking comfortable. No fever, no chills. No nausea, vomiting, diarrhea. No hematuria. No hematochezia. PHYSICAL EXAMINATION: VITAL SIGNS: Temperature 98.7, pulse 113, blood pressure 134/79, respiratory rate 20. HEENT: Head: Normocephalic, atraumatic. Eyes: PERRLA. Extraocular movements are intact. Conjunctivae clear. Nose patent. Mucous membrane moist. NECK: Supple. No carotid bruits. No JVD or thyromegaly. CHEST: Bilaterally symmetrical. HEART: S1, S2 positive. LUNGS: Clear to auscultation. ABDOMEN: Soft. Bowel sounds are present. No organomegaly. EXTREMITIES: No edema. No cyanosis. NEUROLOGIC: Patient is awake, alert, but patient is a very poor historian. MEDICATIONS: Hydralazine, vitamin D, DuoNeb, Ecotrin, insulin, Levaquin, amlodipine, Pepcid, Tylenol, Zofran, Norvasc. LABORATORY DATA: We do not have recent labs today, but I reviewed old labs. ASSESSMENT AND PLAN: Mr. Humberto London is a 72-year-old male with history of leukopenia, anemia, hyperglycemia, history of hypokalemia, replaced, hypocalcemia, seen by Dr. Scott for sepsis. Patient has a history of hypertension, old cerebrovascular accident with residual left-sided weakness, hepatitis C. Patient is wheelchair bound. Gram-negative rods in the urine culture identified as Klebsiella, sensitive to fluoroquinolones. Pancultures are done. Monitoring the fever trend and white blood cell trend. Continue Levaquin for 5 to 7 days in total. Plan to consider to change antibiotic to p.o. after 3 days. Patient is back to his baseline. Discussion done with the family. Gastrointestinal and deep venous thrombosis prophylaxis. Patient is a poor historian and he is refusing most of the time physical therapy, but still we are giving bedside physical therapy. We will follow up. Marina Weir MD
[2018-01-15] MEDS: Insulin Reg-LOW-Coverage SC SCH ×4 (06:37→21:20)
[2018-01-15 07:07] LABS: HEMOGLOBIN 14.7 g/dL (14.0-18.0); MEAN CELL VOLUME 85.8 fl (80.0-105.0); MEAN CORPUSCULAR HEMOGLOBIN 30.7 pg (25.0-35.0); MEAN CORPUSCULAR HGB CONC 35.8 g/dl (31.0-37.0); MEAN PLATELET VOLUME 11.8 fl (7.0-11.0); RBC 4.79 10^6/uL (3.5-6.1); RED CELL DISTRIBUTION WIDTH 12.9 % (11.5-14.5); WHITE BLOOD COUNT 10.4 10^3/ul (4.5-11.0)
[2018-01-15 07:24] LABS: BLOOD UREA NITROGEN 21 mg/dL (7-21); CALCIUM 8.7 mg/dL (8.4-10.5); GFR AFRICAN-AMERICAN > 60; GFR NON-AFRICAN AMERICAN > 60
[2018-01-15] MEDS: Albuterol-Ipratrop 3 mg / 0.5 (3 ml) UD IH SCH ×2 (07:53→21:12)
[2018-01-15] MEDS: Potassium Chloride 40 mEq/30 ml LIQ UD PO SCH ×2 (12:22→14:54)
--- NOTE | 2018-01-15 18:34 | CP.PCM.PN ---
Subjective - Date & Time of Evaluation Date of Evaluation: 01/15/18 Time of Evaluation: 18:00 - Subjective Subjective: Infectious Disease Follow Up: January 15, 2018 72 yo male found be family to be confused with poor oral intake, dizziness, weakness, lightheadedness, and decreased urination. Found to have acute renal failure in ER. The patient is a extremely poor historian. The patient is also wheelchair bound. Changes started one week ago. Medical history includes HTN, CVA with residual left sided weakness, Hepatitis C, and wheelchair bound. Urine cultures with gram negative shasta growth identified as Klebsiella. Limited antibiotic choices due to PCN allergies. Currently on Levaquin for antibiotic coverage. He is more awake and alert. He is eating better and answers questions more consistently. He has no complaints at this time. He appears comfortable. Day 5 in TRCU. Patient with difficulties with his ADLs. Patient [place] was here, she [place] and unable to be with the patient frequently. Daughter states that the patient lives alone and usually acts independently. Objective - Vital Signs/Intake and Output Vital Signs (last 24 hours): Temp Pulse Resp BP Pulse Ox 97.6 F 111 H 20 140/79 90 L 01/15/18 16:00 01/15/18 16:00 01/15/18 16:00 01/15/18 16:00 01/15/18 16:00 - Medications Medications: Current Medications Acetaminophen (Tylenol 325mg Tab) 650 mg PO Q4H PRN; Protocol PRN Reason: Pain, moderate (4-7) Albuterol/Ipratropium (Duoneb 3 Mg/0.5 Mg (3 Ml) Ud) 3 ml IH [id number] TERRY PRN Reason: Protocol Last Admin: 01/15/18 07:53 Dose: Not Given Amlodipine Besylate (Norvasc) 10 mg PO DAILY TERRY PRN Reason: Protocol Last Admin: 01/15/18 10:08 Dose: 10 mg Aspirin (Ecotrin) 81 mg PO 0800 TERRY PRN Reason: Protocol Last Admin: 01/15/18 08:09 Dose: 81 mg Ergocalciferol (Drisdol 50,000 Intl Units Cap) 1 cap PO Q7D TERRY PRN Reason: Protocol Last Admin: 01/09/18 17:55 Dose: Not Given Ergocalciferol (Drisdol 50,000 Intl Units Cap) 1 cap PO Q7D TERRY PRN Reason: Protocol Last Admin: 01/14/18 14:13 Dose: 1 cap Famotidine (Pepcid) 20 mg PO HS TERRY PRN Reason: Protocol Last Admin: 01/14/18 21:19 Dose: 20 mg Hydralazine HCl (Apresoline) 25 mg PO BID TERRY PRN Reason: Protocol Last Admin: 01/15/18 13:16 Dose: Not Given Insulin Human Regular (Humulin R Low) 0 units SC ACHS TERRY PRN Reason: Protocol Last Admin: 01/15/18 17:52 Dose: Not Given Ondansetron HCl (Zofran Inj) 4 mg IVP Q6H PRN; Protocol PRN Reason: Nausea/Vomiting - Labs Labs: 01/15/18 05:10 01/15/18 05:10 - Constitutional Appears: Non-toxic, No Acute Distress, Chronically Ill - Head Exam Head Exam: ATRAUMATIC, NORMOCEPHALIC - Eye Exam Eye Exam: EOMI, PERRL Pupil Exam: NORMAL ACCOMODATION, PERRL - ENT Exam ENT Exam: Mucous Membranes Moist, Normal External Ear Exam, TM's Normal Bilaterally - Neck Exam Neck Exam: Full ROM, Normal Inspection - Respiratory Exam Respiratory Exam: Clear to Ausculation Bilateral, NORMAL BREATHING PATTERN. absent: Rales, Rhonchi, Wheezes - Cardiovascular Exam Cardiovascular Exam: REGULAR RHYTHM, RRR, +S1, +S2 - GI/Abdominal Exam GI & Abdominal Exam: Soft, Normal Bowel Sounds. absent: Distended, Tenderness - Extremities Exam Extremities Exam: absent: Joint Swelling, Pedal Edema - Neurological Exam Neurological Exam: Alert, Awake, CN II-XII Intact Additional comments: AAO x 2-3 left sided weakness Wheelchair bound. - Psychiatric Exam Psychiatric exam: Normal Affect, Normal Mood - Skin Skin Exam: Intact, Normal Color Assessment and Plan - Assessment and Plan (Free Text) Assessment: 72 yo male who appears calm at this time with lethargy, decreased urinary output, and findings of acute renal failure on hospitalization. The patient with mild leukocytosis. Afebrile at this time. Chest X-ray with no active disease. Cannot rule out UTI as of yet. Was on Aztreonam due to PCN Allergies. Supportive care. Gram negative rods in urine cultures identified as Klebsiella sensitive to Fluoroquinolones. Pimentel cultures. Monitor fever trend and WBC trend. Continue on Levaquin for 5-7 days in total. Can consider oral completion after 3 days of IV Levaquin. Day 6 in TRCU. Nearing completion of antibiotics. The patient is back to his baseline levels mentally. Slowly improving in his abilities to perform his ADLs. Thank you for allowing me to participate in the care of the patient, we will follow with you.
--- NOTE | 2018-01-15 22:44 | CP.PCM.PN ---
Subjective - Date & Time of Evaluation Date of Evaluation: 01/15/18 Time of Evaluation: 12:00 - Subjective Subjective: Reports feeling well, eating/breathing well; not really getting out of bed; Objective - Vital Signs/Intake and Output Vital Signs (last 24 hours): Temp Pulse Resp BP Pulse Ox 97.6 F 111 H 20 140/79 90 L 01/15/18 16:00 01/15/18 16:00 01/15/18 16:00 01/15/18 18:30 01/15/18 16:00 - Medications Medications: Current Medications Acetaminophen (Tylenol 325mg Tab) 650 mg PO Q4H PRN; Protocol PRN Reason: Pain, moderate (4-7) Albuterol/Ipratropium (Duoneb 3 Mg/0.5 Mg (3 Ml) Ud) 3 ml IH [id number] TERRY PRN Reason: Protocol Last Admin: 01/15/18 21:12 Dose: 3 ml Amlodipine Besylate (Norvasc) 10 mg PO DAILY TERRY PRN Reason: Protocol Last Admin: 01/15/18 10:08 Dose: 10 mg Aspirin (Ecotrin) 81 mg PO 0800 TERRY PRN Reason: Protocol Last Admin: 01/15/18 08:09 Dose: 81 mg Ergocalciferol (Drisdol 50,000 Intl Units Cap) 1 cap PO Q7D TERRY PRN Reason: Protocol Last Admin: 01/09/18 17:55 Dose: Not Given Ergocalciferol (Drisdol 50,000 Intl Units Cap) 1 cap PO Q7D TERRY PRN Reason: Protocol Last Admin: 01/14/18 14:13 Dose: 1 cap Famotidine (Pepcid) 20 mg PO HS TERRY PRN Reason: Protocol Last Admin: 01/15/18 21:17 Dose: 20 mg Hydralazine HCl (Apresoline) 25 mg PO BID TERRY PRN Reason: Protocol Last Admin: 01/15/18 18:30 Dose: Not Given Potassium Chloride (Potassium Chloride 10 Meq/100 Ml) 10 meq in 100 mls @ 50 mls/hr IVPB ONCE ONE Stop: 01/16/18 00:41 Insulin Human Regular (Humulin R Low) 0 units SC ACHS TERRY PRN Reason: Protocol Last Admin: 01/15/18 21:20 Dose: Not Given Ondansetron HCl (Zofran Inj) 4 mg IVP Q6H PRN; Protocol PRN Reason: Nausea/Vomiting - Labs Labs: 01/15/18 05:10 01/15/18 05:10 - Constitutional Appears: Non-toxic, No Acute Distress - Eye Exam Eye Exam: absent: Scleral icterus - ENT Exam ENT Exam: Mucous Membranes Moist - Respiratory Exam Respiratory Exam: absent: Respiratory Distress Additional comments: exp wheezes much improved; - Cardiovascular Exam Cardiovascular Exam: RRR, +S1, +S2 - GI/Abdominal Exam GI & Abdominal Exam: Soft, Tenderness - Exam Exam: Bladder Distension - Extremities Exam Additional comments: no leg edema; - Neurological Exam Neurological Exam: Alert, Awake - Psychiatric Exam Psychiatric exam: absent: Agitated - Skin Skin Exam: Warm. absent: Cyanosis Assessment and Plan (1) Acute renal failure Assessment & Plan: ATN resolving, however, now with urinary retention; see below; Status: Acute (2) Diabetes Status: Acute (3) HTN (hypertension) Assessment & Plan: BP controlled with amlodipine and hydralazine, continue same; Status: Acute (4) Hematuria Assessment & Plan: Urine cytology negative for malignant cells; nevertheless, needs urology assessment at some point; Status: Acute (5) Hypokalemia Assessment & Plan: Recurrent; replenishing via PO and IV routes; Status: Acute (6) Urinary retention Assessment & Plan: Etiology unclear; had ~500 cc on bladder scan with small voids; starting on flomax and finasteride; Status: Acute
--- NOTE | 2018-01-15 22:45 | PN ---
DATE: 01/15/2018 PULMONARY PROGRESS NOTE REFERRING PHYSICIAN: Marina Weir MD. SUBJECTIVE: Patient is lying in the bed, head at 45 degrees. Lunch is there, but not eating much. Brother is at bedside. Nursing staff is at bedside. Night was unremarkable. Does not use CPAP. Seen by psychiatrist. No nausea, no vomiting, no diarrhea. No leg pain or leg swelling. OBJECTIVE: GENERAL: In no acute distress. VITAL SIGNS: Temperature is 98, heart rate 111, respiratory rate is 20, blood pressure 140/79, pulse ox 93% room air. HEENT: Moist mucous membrane. No ulcer or thrush noted. NECK: Supple. No JVD. LUNGS: Has a fair airflow with few rhonchi. HEART: S1, S2. ABDOMEN: Soft, nontender. No organomegaly. EXTREMITIES: No edema. NEUROLOGIC: Awake, alert, follow simple commands. MEDICATIONS: He is on hydralazine 25 mg twice a day, vitamin D 50,000 units weekly, DuoNeb q. 6 hours, Ecotrin 81 mg daily, insulin coverage, Norvasc 10 mg daily, Pepcid 20 mg daily, Tylenol p.r.n., Zofran p.r.n. basis. LABORATORY DATA: Shows hemoglobin 14.7, hematocrit 41.1, WBC 10.4, platelet is 238. Sodium 140, potassium 3.0, chloride 103, bicarbonate 21, BUN 21, creatinine 1.0, glucose 168, calcium 8.7, phosphorus 2.5, magnesium 2.0. IMPRESSION AND PLAN: Status post renal failure, slowly improving; history of cerebrovascular accident; hypertension; coronary artery disease; may have sleep apnea syndrome; poor p.o. intake; activities of daily living dysfunction; acute bronchitis. I had a long discussion with the patient's brother at bedside, all the questions answered. I spoke to patient in detail. Reviewed psychiatrist's recommendations. Patient lives alone, may need to send him to subacute. So, continue care. Fall precaution. Encourage p.o. intake. Follow up electrolytes. Thank you and we will follow with you. Kevin Riojas MD [facility] # [id number]
--- NOTE | 2018-01-16 02:39 | PN ---
DATE: SUBJECTIVE: Patient is a 72-year-old male. Patient was seen and examined at the bedside, looking comfortable. No nausea, vomiting, or diarrhea. No hematuria or hematochezia. No swelling of the legs. No chest pain. No palpitation. No headache. No dizziness. Patient is more awake and alert, responding better. Getting physical therapy at bedside. He is improving his ADL. No fever. No chills. PHYSICAL EXAMINATION: VITAL SIGNS: Temperature 97.6, pulse of 111, respiratory rate 20, blood pressure 114/79, pulse oximetry of 90. HEENT: Head: Normocephalic, atraumatic. Eyes: PERRLA. Extraocular muscles intact. Conjunctivae clear. Nose patent. Mucous membrane moist. NECK: Supple. No carotid bruits. No JVD or thyromegaly. CHEST: Bilaterally symmetrical. HEART: S1, S2 positive. LUNGS: Clear to auscultation. ABDOMEN: Soft. Bowel sounds are present. No organomegaly. EXTREMITIES: No edema. No cyanosis. NEUROLOGIC: Patient is awake, alert, follow simple commands. MEDICATIONS: Tylenol, DuoNeb, Norvasc, Ecotrin, vitamin D, Pepcid, hydralazine, insulin, Zofran. LABORATORY DATA: White blood cells 10.4, hemoglobin 14.7, hematocrit 41.0, platelets 238. Sodium 140, potassium 3.0, BUN 21, creatinine 1.0, glucose 168. ASSESSMENT AND PLAN: Mr. Humberto London is a 72-year-old male with hypokalemia, hyperglycemia. Patient has history of acute renal failure, mild leukocytosis, got aztreonam due to PENICILLIN ALLERGIES. Gram-negative rods in the urine cultures identified as Klebsiella sensitive to fluoroquinolone. Pancultures done. Monitoring fever trend and white blood cell trend. Continue Levaquin for 5 to 7 days in total. We can consider oral completion after 3 days of IV Levaquin. Day #6 in TRCU, nearing completing antibiotics. Patient is back to his baseline level mentally. Slowly improving his ability to perform his ADLs. Patient is living alone. Family concern is safety and my concern is also safety, but social work manager spoke to the brother to move patient in a long-term facility. Family is thinking about that. Marina Weir MD
[2018-01-16 06:21] LABS: URINE BILIRUBIN SMALL (NEGATIVE); URINE BLOOD NEGATIVE (NEGATIVE); URINE GLUCOSE (UA) NEGATIVE (NEGATIVE); URINE LEUKOCYTE ESTERASE NEGATIVE Leu/uL (NEGATIVE); URINE NITRATE NEGATIVE (NEGATIVE); URINE PROTEIN 100 mg/dL (<30 mg/dL)
[2018-01-16 06:30] LABS: URINE APPEARANCE SL CLOUDY (CLEAR); URINE COLOR YELLOW (YELLOW)
[2018-01-16] MEDS: Insulin Reg-LOW-Coverage SC SCH ×3 (06:35→17:01)
[2018-01-16 06:42] LABS: URINE EPITHELIAL CELLS 0 - 2 /hpf (0-5); URINE RBC 0 - 2 /hpf (0-2); URINE WBC 0 - 2 /hpf (0-6)
[2018-01-16 06:47] LABS: URINE BACTERIA RARE (NEG); URINE URIC ACID CRYSTALS SMALL /hpf
[2018-01-16] MEDS: Albuterol-Ipratrop 3 mg / 0.5 (3 ml) UD IH SCH ×2 (07:38→13:09)
[2018-01-16 08:10] LABS: BLOOD UREA NITROGEN 25 mg/dL (7-21); CALCIUM 8.7 mg/dL (8.4-10.5); GFR AFRICAN-AMERICAN > 60; GFR NON-AFRICAN AMERICAN > 60
[2018-01-16] MEDS ORDERED: Potassium Chloride 20 mEq ER Tab PO ONE (08:18)
[2018-01-16 15:17] VITALS: RESP 14
[2018-01-16] MEDS: Ergocalciferol 50,000 Intl Units Cap PO SCH (17:25)
--- NOTE | 2018-01-16 17:50 | CP.PCM.PN ---
Subjective - Date & Time of Evaluation Date of Evaluation: 01/16/18 Time of Evaluation: 17:00 - Subjective Subjective: Infectious Disease Follow Up: January 16, 2018 72 yo male found be family to be confused with poor oral intake, dizziness, weakness, lightheadedness, and decreased urination. Found to have acute renal failure in ER. The patient is a extremely poor historian. The patient is also wheelchair bound. Changes started one week ago. Medical history includes HTN, CVA with residual left sided weakness, Hepatitis C, and wheelchair bound. Urine cultures with gram negative shasta growth identified as Klebsiella. Limited antibiotic choices due to PCN allergies. Currently on Levaquin for antibiotic coverage. He is more awake and alert. He is eating better and answers questions more consistently. He has no complaints at this time. He appears comfortable. Day 7 in TRCU. Patient with difficulties with his ADLs. Patient daughter was here, she lives outside of [place] and unable to be with the patient frequently. Daughter states that the patient lives alone and usually acts independently. Objective - Vital Signs/Intake and Output Vital Signs (last 24 hours): Temp Pulse Resp BP Pulse Ox 97 F L 75 14 99/79 L 96 01/16/18 10:00 01/16/18 17:30 01/16/18 10:00 01/16/18 17:30 01/16/18 10:00 Intake and Output: 01/16/18 01/16/18 06:59 18:59 Intake Total 100 Output Total 350 Balance -250 - Medications Medications: Current Medications Acetaminophen (Tylenol 325mg Tab) 650 mg PO Q4H PRN; Protocol PRN Reason: Pain, moderate (4-7) Albuterol/Ipratropium (Duoneb 3 Mg/0.5 Mg (3 Ml) Ud) 3 ml IH [id number] TERRY PRN Reason: Protocol Last Admin: 01/16/18 13:09 Dose: Not Given Amlodipine Besylate (Norvasc) 10 mg PO DAILY TERRY PRN Reason: Protocol Last Admin: 01/16/18 10:19 Dose: 10 mg Aspirin (Ecotrin) 81 mg PO 0800 TERRY PRN Reason: Protocol Last Admin: 01/16/18 08:18 Dose: 81 mg Ergocalciferol (Drisdol 50,000 Intl Units Cap) 1 cap PO Q7D TERRY PRN Reason: Protocol Last Admin: 01/16/18 17:25 Dose: 1 cap Ergocalciferol (Drisdol 50,000 Intl Units Cap) 1 cap PO Q7D [facility] PRN Reason: Protocol Last Admin: 01/14/18 14:13 Dose: 1 cap Famotidine (Pepcid) 20 mg PO HS TERRY PRN Reason: Protocol Last Admin: 01/15/18 21:17 Dose: 20 mg Finasteride (Proscar) 5 mg PO DAILY [facility] Last Admin: 01/16/18 10:20 Dose: 5 mg Hydralazine HCl (Apresoline) 25 mg PO BID [facility] PRN Reason: Protocol Last Admin: 01/16/18 17:30 Dose: Not Given Insulin Human Regular (Humulin R Low) 0 units SC ACHS [facility] PRN Reason: Protocol Last Admin: 01/16/18 17:01 Dose: Not Given Ondansetron HCl (Zofran Inj) 4 mg IVP Q6H PRN; Protocol PRN Reason: Nausea/Vomiting Tamsulosin HCl (Flomax) 0.4 mg PO DAILY [facility] Last Admin: 01/16/18 10:20 Dose: 0.4 mg - Labs Labs: 01/15/18 05:10 01/16/18 06:45 - Constitutional Appears: Non-toxic, No Acute Distress, Chronically Ill - Head Exam Head Exam: ATRAUMATIC, NORMOCEPHALIC - Eye Exam Eye Exam: EOMI, PERRL Pupil Exam: NORMAL ACCOMODATION, PERRL - ENT Exam ENT Exam: Mucous Membranes Moist, Normal External Ear Exam, TM's Normal Bilaterally - Neck Exam Neck Exam: Full ROM, Normal Inspection - Respiratory Exam Respiratory Exam: Clear to Ausculation Bilateral, NORMAL BREATHING PATTERN. absent: Rales, Rhonchi, Wheezes - Cardiovascular Exam Cardiovascular Exam: REGULAR RHYTHM, RRR, +S1, +S2 - GI/Abdominal Exam GI & Abdominal Exam: Soft, Normal Bowel Sounds. absent: Distended, Tenderness - Extremities Exam Extremities Exam: absent: Joint Swelling, Pedal Edema - Neurological Exam Neurological Exam: Alert, Awake, CN II-XII Intact Additional comments: AAO x 2-3 left sided weakness Wheelchair bound. - Psychiatric Exam Psychiatric exam: Normal Affect, Normal Mood - Skin Skin Exam: Intact, Normal Color Assessment and Plan - Assessment and Plan (Free Text) Assessment: 72 yo male who appears calm at this time with lethargy, decreased urinary output, and findings of acute renal failure on hospitalization. The patient with mild leukocytosis. Afebrile at this time. Chest X-ray with no active disease. Cannot rule out UTI as of yet. Was on Aztreonam due to PCN Allergies. Supportive care. Gram negative rods in urine cultures identified as Klebsiella sensitive to Fluoroquinolones. Pimentel cultures. Monitor fever trend and WBC trend. Continue on Levaquin for 5-7 days in total. Can consider oral completion after 3 days of IV Levaquin. Day 7 in TRCU. Nearing completion of antibiotics. The patient is back to his baseline levels mentally. Slowly improving in his abilities to perform his ADLs. Thank you for allowing me to participate in the care of the patient, we will follow with you.
[2018-01-16 18:01] VITALS: BP 144/82; PULSE 73; TEMP 98.4; O2SAT 97
--- NOTE | 2018-01-16 22:05 | CP.PCM.PN ---
Objective - Vital Signs/Intake and Output Vital Signs (last 24 hours): Temp Pulse Resp BP Pulse Ox 98.4 F 73 14 144/82 97 01/16/18 18:00 01/16/18 18:00 01/16/18 18:00 01/16/18 18:00 01/16/18 18:00 - Labs Labs: 01/15/18 05:10 01/16/18 06:45 Assessment and Plan (1) Acute renal failure Status: Acute (2) Diabetes Status: Acute (3) HTN (hypertension) Status: Acute (4) Hematuria Status: Acute (5) Hypokalemia Status: Acute (6) Urinary retention Status: Acute
--- NOTE | 2018-01-17 00:59 | PN ---
DATE: 01/16/2018 PULMONARY PROGRESS NOTE REFERRING PHYSICIAN: Marina Weir MD. SUBJECTIVE: He is lying in the bed, head at 45 degrees. Not very cooperative with the therapy and p.o. intake. Denying any headache. Does not use CPAP. No nausea, no vomiting, no diarrhea. No leg pain or leg swelling. OBJECTIVE: GENERAL: In no acute distress. VITAL SIGNS: Temperature is 98, heart rate 73, respiratory rate is 14, blood pressure 144/82, pulse ox 97% on room air. HEENT: Moist mucous membrane. Crowded airway. NECK: Supple. No JVD. LUNGS: Has a few scattered rhonchi. HEART: S1, S2. ABDOMEN: Soft, nontender. No organomegaly. EXTREMITIES: There is no edema. NEUROLOGIC: Awake, alert, follow simple commands. MEDICATIONS: Reviewed. No new change in medications reported since yesterday. LABORATORY DATA: Reviewed. Sodium 140, potassium 3.0, chloride 103, bicarbonate 23, BUN 25, creatinine 1.1, glucose 146, calcium is 8.7. IMPRESSION AND PLAN: Renal failure, slowly improving; history of cerebrovascular accident; hypertension; coronary artery disease; may have sleep apnea syndrome; very poor p.o. intake; acute bronchitis. Case discussed with the patient's brother. All the questions answered. Patient will be transferred to subacute care for continued care. Patient lives alone. Unable to take care of himself. Need lot of motivations. Hopefully, he can benefit with physical therapy there. Fall precautions. Aspiration precaution. Encourage p.o. intake. Kevin Riojas MD
== END 2018-01-16 18:37 | DRG 683 ==
LOC: TRCU 15:45
PROVIDERS: ADMIT Internal Medicine; ATTEND Internal Medicine
PROC: F07Z5ZZ Bed Mobility Treatment (ICD-10-PCS; principal; 2018-01-09)
PROC: 3E0F7GC Introduction of Other Therapeutic Substance into Respiratory Tract, Via Natural or Artificial Opening (ICD-10-PCS; 2018-01-09)
PROC: F08Z4FZ Home Management Treatment using Assistive, Adaptive, Supportive or Protective Equipment (ICD-10-PCS; 2018-01-10)
DX: N17.0 Acute kidney failure with tubular necrosis (principal); N39.0 Urinary tract infection, site not specified; I69.354 Hemiplegia and hemiparesis following cerebral infarction affecting left non-dominant side; E11.65 Type 2 diabetes mellitus with hyperglycemia; E87.2 Acidosis; J20.9 Acute bronchitis, unspecified; B96.1 Klebsiella pneumoniae [K. pneumoniae] as the cause of diseases classified elsewhere; Z79.2 Long term (current) use of antibiotics; I25.10 Atherosclerotic heart disease of native coronary artery without angina pectoris; B19.20 Unspecified viral hepatitis C without hepatic coma; I10 Essential (primary) hypertension; E83.42 Hypomagnesemia; E87.6 Hypokalemia; E83.51 Hypocalcemia; E86.9 Volume depletion, unspecified; D64.9 Anemia, unspecified; G47.30 Sleep apnea, unspecified; K80.20 Calculus of gallbladder without cholecystitis without obstruction; Z91.19 Patient's noncompliance with other medical treatment and regimen; Z99.3 Dependence on wheelchair; Z95.1 Presence of aortocoronary bypass graft; Z87.891 Personal history of nicotine dependence; Z88.0 Allergy status to penicillin